=== PATIENT | female | born 1985 | race Caucasian/White ===

== ENCOUNTER 2021-06-17 10:22 | Inpatient (IN) ==
[2021-06-17] MEDS ORDERED: ALBUTEROL SULFATE 200 PUFF INHALER INH ONE (10:32)
[2021-06-17] MEDS ORDERED: LACTATED RINGERS 1,000 ML IV ONE (10:32)
--- NOTE | 2021-06-17 10:47 | Emergency Department Note ---
SOB HPI General Chief Complaint: Shortness of Breath/Dyspnea Stated Complaint: covid +, cough, chills, headache, SOB Time Seen by Provider: 06/17/21 10:26 Source: patient, RN notes reviewed and old records reviewed Mode of arrival: ambulatory Limitations: no limitations History of Present Illness HPI Narrative: Narrative: MD Complaint: shortness of breath Onset (ago): day(s) (4) Context: recent illness Severity: severe Consistency/Duration: constant Improves with: nothing Worsens with: exertion, movement and coughing Known history of: other (Covid pneumonia 06/13) Associated symptoms: Reports fever, cough, wheezing, sputum production and palpitations; Denies chest pain, pain with inspiration, orthopnea, lower extremity pain, polyuria, polydipsia, parasthesias, carpopedal spasm, hemoptysis, diaphoresis, nausea/vomiting, syncope, abdominal pain, rash and sense of impending doom Treatment prior to arrival: other (Treated with steroids prior to arrival) Related Data Home oxygen amount: none Previous Rx's Medication Instructions Recorded venlafaxine 75 mg tablet 75 mg PO BID #60 tab 03/08/18 codeine-guaifenesin 5 ml PO Q8HP PRN #237 ml 06/13/21 Allergies Allergy/AdvReac Type Severity Reaction Status Date / Time No Known Drug Allergies Allergy Verified 06/17/21 10:24 Review of Systems ROS ROS Narrative: Narrative: All systems ED: reviewed and negative except as stated. [facility] Narrative Patient History Narrative: Narrative: Medical/Surgical/Family History All Active Problems (Updated 06/17/21 @ 12:24 by Tim Bianchi MD) Pneumonia due to COVID-19 virus (Acute) Pneumonia due to 2019 novel coronavirus (Acute) Choledocholithiasis (Acute) UTI (urinary tract infection) (Acute) Flank pain (Acute) Cholecystitis, acute with cholelithiasis (Acute) Cholecystitis (Acute) History of wisdom tooth extraction (Chronic) History of hernia surgery (Chronic) Upper respiratory infection (Acute) Depression (Chronic) Medical History (Updated 06/17/21 @ 12:24 by Tim Bianchi MD) Depression Upper respiratory infection Surgical History History of hernia surgery Childhood - [facility]Do December History of laparoscopic cholecystectomy 06/21/2018 History of wisdom tooth extraction Social History Smoking Status: Never smoker Alcohol Intake Frequency: does not drink Substance Use: does not use Exam Narrative Narrative: Narrative: General Limitations: no limitations General appearance: Present alert, in distress and obese Head Head: Present atraumatic, normocephalic and normal inspection Eye Eye: Present normal appearance, PERRL and EOMI ENT ENT: Present normal exam, normal oropharynx and mucous membranes moist Neck Neck: Present normal inspection, full ROM and trachea midline; Absent tenderness, meningismus and lymphadenopathy Chest Chest: Present normal inspection; Absent tenderness Respiratory Respiratory: Present respiratory distress, wheezes and decreased breath sounds; Absent rales/crackles, stridor, accessory muscle use and prolonged expiratory phase Cardiovascular Cardiovascular: Present normal rhythm and tachycardia; Absent systolic murmur Adbominal Abdominal: Present soft; Absent distention, tenderness, guarding and rebound Extremities Extremities: Present normal inspection, full ROM and normal capillary refill; Absent tenderness, pedal edema and pretibial edema Back Back: Present normal inspection and full ROM; Absent tenderness, CVA tenderness (R) and CVA tenderness (L) Neurological Neurological: Present alert and oriented X3; Absent motor sensory deficit Psychiatric Psychiatric: Present normal affect and normal mood Skin Skin: Present warm (WNL); Absent rash Course Reevaluation(s) Reevaluation #1: Patient arrives severely hypoxic with a pulse ox of 63% on room air. Patient gets into the 80s when placed on 100% nonrebreather mask. Patient was placed into a prone position and is tolerated well. Although patient is hypoxic she is mentating well and is alert and oriented and following commands. Time: 10:46 Vital Signs Vital signs: Vital Signs Temperature 98.8 F 06/17/21 10:22 Pulse Rate 105 H 06/17/21 10:22 Respiratory Rate 30 H 06/17/21 10:22 Blood Pressure 142/77 06/17/21 10:22 Pulse Oximetry (%) 63 L 06/17/21 10:22 Temperature 98.8 F 06/17/21 10:22 Pulse Rate 90 06/17/21 12:05 Respiratory Rate 33 H 06/17/21 12:05 Blood Pressure 132/82 06/17/21 12:05 Pulse Oximetry (%) 88 L 06/17/21 12:05 [facility] Narrative Medical decision making narrative: Narrative: 36-year-old female with known Covid pneumonia comes in with hypoxia 63% on room air. Patient is in the 80s on a nonrebreather mask while laying prone. She is tolerating this well and is alert and oriented and able to converse with me. Patient has a elevated platelet count at 590 elevated glucose count at 248 elevated LFTs. Chest x-ray shows worsening pneumonia. Patient will be admitted diagnosis is Covid pneumonia secondary diagnosis hypoxia third diagnosis is thrombocytosis forced is hyperglycemia Medical Records Medical records reviewed: Yes I reviewed the patient's medical records. Lab Data Lab results reviewed: Yes I reviewed the patient's lab results. Result diagrams: 06/17/21 10:40 06/17/21 10:40 Labs: Lab Results 06/17/21 06/17/21 06/17/21 Range/Units 10:40 10:40 10:40 WBC 7.7 (4.5-11.0) K/mcL RBC 4.74 (3.59-5.38) M/mcL Hgb 13.2 (11.2-15.7) g/dL Hct 41.0 (34.1-44.9) % MCV 86.5 (80.0-100.0) fL MCH 27.8 (26.0-34.0) pg MCHC 32.2 (31.0-36.0) g/dL RDW 12.7 (11.5-14.5) % Plt Count 590 H (140-440) K/mcL MPV 9.4 (7.4-10.4) fL Neut % (Auto) 79.7 H (38.0-78.0) % Lymph % (Auto) 16.2 (15.5-49.0) % Ada % (Auto) 3.9 (1.0-12.0) % Eos % (Auto) 0.1 (0.0-7.0) % Baso % (Auto) 0.1 (0.0-2.0) % Lymph # (Auto) 1.25 L (1.50-4.80) K/mcL Ada # (Auto) 0.30 (0.10-0.90) K/mcL Eos # (Auto) 0.01 (0.00-0.70) K/mcL Baso # (Auto) 0.01 (0.00-0.30) K/mcL Absolute Neutrophils 6.15 (1.80-8.00) K/mcL VBG Lactic Acid 2.6 H (0.5-2.0) mmol/L Sodium 133 (133-145) mmol/L Potassium 3.8 (3.3-5.1) mmol/L Chloride 93 L (96-108) mmol/L Carbon Dioxide 21 L (22-30) mmol/L Anion Gap 19.0 H (8.0-16.0) BUN 10 (6-20) mg/dL Creatinine 0.6 (0.6-1.1) mg/dL GFR Calculation 119 Glucose 248 H (70-105) mg/dL Calcium 9.3 (8.6-10.4) mg/dL Total Bilirubin 0.4 (0.1-1.0) mg/dL AST 28 (<32) U/L ALT 20 (<40) U/L Alkaline Phosphatase 87 (39-117) U/L Total Protein 8.2 (5.9-8.4) gm/dL Albumin 3.1 L (3.2-5.2) gm/dL Globulin 5.1 H (2.2-3.7) gm/dL Albumin/Globulin Ratio 0.6 L (1.0-2.3) ED POC Tests ED POC Tests: HCG POC Results Negative Radiology Data Radiology results reviewed: Yes I reviewed the patient's radiology results. Radiology results narrative: CXR IMPRESSION: Worsening bilateral pneumonia Interpreted and Authenticated by: FERNANDEZ Mccarthy Data EKG #1: EKG attestation: Yes I reviewed and interpreted this EKG. EKG shows normal: sinus rhythm Rate: normal (90) [place]/QRS: normal Voltage: c/w LVH Heart block present: None ST segment elevation in: None ST segment depression in: None Q waves: III and aVF T wave inversions noted in: None Hyperacute T waves: None QTc: normal QRS morphology: Present normal When compared to previous EKG there are: no significant changes Pulse Oximetry Data Pulse Ox %: 63 Interpretation: 63% on room air hypoxic Discharge Plan Patient/Caregiver Discharge Instructions Pt seen by HIV COUNSELOR/PA only: No Clinical Impression: Pneumonia due to 2019 novel coronavirus Patient Disposition: Xfer As Inpt ([facility]) Condition: Fair Follow up with: Wild Macedo MD [Primary Care Provider] - Prescriptions: No Action venlafaxine 75 mg tablet 75 mg PO BID Qty: 60 RF: 2 codeine-guaifenesin 10-100 mg/5 mL liquid 5 ml PO Q8HP PRN (Reason: cough) Qty: 237 RF: 0
--- NOTE | 2021-06-17 11:15 | XRay Report ---
HISTORY: : Pneumonia with cough, chills and shortness of breath FINDINGS: Moderate diffuse alveolar infiltrates are present throughout both lungs. These have become worse since 06/13/21. Lung volumes are relatively small due to suboptimal inspiration. No pneumothorax or pleural effusion are present. The heart is borderline enlarged but magnified by portable technique and suboptimal inspiration. IMPRESSION: Worsening bilateral pneumonia Interpreted and Authenticated by: Jordi Mccarthy 06/17/21
[2021-06-17 11:38] LABS: Basophils # (Auto) 0.01 K/mcL (0.00-0.30); Basophils % (Auto) 0.1 % (0.0-2.0); Eosinophils # (Auto) 0.01 K/mcL (0.00-0.70); Eosinophils % (Auto) 0.1 % (0.0-7.0); Hemoglobin 13.2 g/dL (11.2-15.7); Lymphocytes # (Auto) 1.25 K/mcL (1.50-4.80); Lymphocytes % (Auto) 16.2 % (15.5-49.0); Mean Cell Volume 86.5 fL (80.0-100.0); Mean Corpuscular HGB Conc 32.2 g/dL (31.0-36.0); Mean Platelet Volume 9.4 fL (7.4-10.4); Monocytes % (Auto) 3.9 % (1.0-12.0); Neutrophils % (Auto) 79.7 % (38.0-78.0); Platelet Count 590 K/mcL (140-440); RBC 4.74 M/mcL (3.59-5.38); Red Cell Distribution Width 12.7 % (11.5-14.5); WBC 7.7 K/mcL (4.5-11.0)
[2021-06-17 12:07] LABS: ALT/SGPT 20 U/L (<40); AST/SGOT 28 U/L (<32); Albumin 3.1 gm/dL (3.2-5.2); Albumin/Globulin Ratio 0.6 (1.0-2.3); Alkaline Phosphatase 87 U/L (39-117); Bilirubin,Total 0.4 mg/dL (0.1-1.0); Blood Urea Nitrogen 10 mg/dL (6-20); Calcium 9.3 mg/dL (8.6-10.4); Carbon Dioxide 21 mmol/L (22-30); Chloride 93 mmol/L (96-108); Globulin 5.1 gm/dL (2.2-3.7); Glomerular Filtration Rate 119; Glucose 248 mg/dL (70-105)
[2021-06-17] MEDS ORDERED: KETOROLAC 30 MG/ML VIAL IV ONE (12:56)
--- NOTE | 2021-06-17 13:49 | Internal Med History&Physical ---
HPI History of Present Illness Patient information: Note initiated : 06/17/21 at 1:48 pm Service Date, if different from initiated Date: [] Patient: Niya Piper a 36 y/o F admitted on for covid +, cough, chills, headache, SOB. Chief Complaint: [] History of present illness: Ms. Piper is a 36 year old female with a history of depression and obesity who says she was diagnosed with COVID-19 at an outside facility on about 06/09/21. She presented to the [facility] ED last week with a cough and fever and was discharged to home. She returned to the ED on the day of admission with shortness of breath and hypoxia. Chest xray showed progression of bilateral pneumonia. Lab work was remarkable for a neutrophil count of 590, lactic acid 2.6, anion gap metabolic acidosis. The patient required 15 L/min oxgyen via a non-rebreather mask, respiratory rate is 30-40. When I saw the patient she was proning and was able to speak comfortably in full sentences. She says she feel comfortable on oxygen supplementation while at rest. Review of systems Constitutional: positive for fever Eyes: no vision changes or pain Cardiovascular: no chest pain, no palpitations Respiratory: positive for cough, dyspnea, and pleuritic chest pain Gastrointestinal: no abdominal pain, no nausea, vomiting, or diarrhea Genitourinary: no dysuria or difficulty voiding Musculoskeletal: no arthralgia or myalgia Integumentary: no skin lesion or wound Neurological: no focal weakness or numbness Psychiatric: no anxiety or depression Physical exam Head: Atraumatic, normal inspection. Eyes: normal appearance, no scleral icterus. Neck: full ROM Respiratory: tachypnea on non-rebreather mask, does not appear to be in respiratory distress Cardiovascular: normal rate and rhythm, S1, S2. GI/Abdominal: soft, nontender, no guarding. Extremities: full range of motion, nontender. Neurological: CN II-XII intact, intact motor, intact sensation. Psychiatric: normal mood. Skin: warm, normal color PFSH PFSH All Active Problems (Updated 06/17/21 @ 12:24 by Tim Bianchi MD) Pneumonia due to COVID-19 virus (Acute) Pneumonia due to 2019 novel coronavirus (Acute) Choledocholithiasis (Acute) UTI (urinary tract infection) (Acute) Flank pain (Acute) Cholecystitis, acute with cholelithiasis (Acute) Cholecystitis (Acute) History of wisdom tooth extraction (Chronic) History of hernia surgery (Chronic) Upper respiratory infection (Acute) Depression (Chronic) Medical History (Updated 06/17/21 @ 12:24 by Tim Bianchi MD) Depression Upper respiratory infection Surgical History History of hernia surgery Childhood - . December History of laparoscopic cholecystectomy 06/21/2018 History of wisdom tooth extraction Social History (Updated 05/17/19 @ 16:17 by Dulce Wilcox PA-C) marital status: education level: high school occupational status: employed occupation: [employer] occupational exposures/hazards: Yes sexually active: Yes other: Children 2, para 0 alcohol intake frequency: does not drink substance use type: does not use MEDS/ALLERGIES Home Medications and Allergies Home Medications Medication Instructions Recorded Confirmed Type venlafaxine 75 mg tablet 75 mg PO BID #60 tab 03/08/18 05/17/19 Rx codeine-guaifenesin 5 ml PO Q8HP PRN #237 ml 06/13/21 Rx Allergies Allergy/AdvReac Type Severity Reaction Status Date / Time No Known Drug Allergies Allergy Verified 06/17/21 10:24 EXAM Constitutional Vitals: Temp Pulse Resp BP Pulse Ox 98.8 F 98 H 41 H 131/84 95 06/17/21 10:22 06/17/21 13:44 06/17/21 13:44 06/17/21 13:31 06/17/21 13:44 DATA Data Completed and Pending Labs: Labs from last 24 hours 06/17/21 06/17/21 06/17/21 10:40 10:40 10:40 WBC 7.7 RBC 4.74 Hgb 13.2 Hct 41.0 MCV 86.5 MCH 27.8 MCHC 32.2 RDW 12.7 Plt Count 590 H MPV 9.4 Neut % (Auto) 79.7 H Lymph % (Auto) 16.2 [place] % (Auto) 3.9 Eos % (Auto) 0.1 Baso % (Auto) 0.1 Lymph # (Auto) 1.25 L [place] # (Auto) 0.30 Eos # (Auto) 0.01 Baso # (Auto) 0.01 Absolute Neutrophils 6.15 VBG Lactic Acid 2.6 H Sodium 133 Potassium 3.8 Chloride 93 L Carbon Dioxide 21 L Anion Gap 19.0 H BUN 10 Creatinine 0.6 GFR Calculation 119 Glucose 248 H Calcium 9.3 Total Bilirubin 0.4 AST 28 ALT 20 Alkaline Phosphatase 87 Total Protein 8.2 Albumin 3.1 L Globulin 5.1 H Albumin/Globulin Ratio 0.6 L A/P Narrative A/P Narrative: Assessment: 36 year old female with a history of depression and obesity admitted for acute hypoxic respiratory failure secondary to COVID-19 pneumonia. #Acute hypoxic respiratory failure #Severe COVID-19 pneumonia #Anion gap metabolic acidosis #Lactic acidosis #Hyperglycemia #BMI 39 Plan -Dexamethasone and Remdesivir per COVID-19 guidelines. -Oxygen supplementation. -Check CRP, LDH, d-dimer, and follow along with daily labs. -Check hemoglobin A1C. -Recheck lactic acid, IV fluid if still elevated. -Encourage self proning. -Monitor respiratory status closely. -Regular diet. 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 -DVT ppx: Lovenox SQ-increase frequency if d-dimer trends up. -Code status: Enterprise Resource Analyst Spent With Patient Time: Total time spent is greater than 50% in coordination of care (as documented) at patient's floor/unit and/or counseling patient:
[2021-06-17] MEDS ORDERED: REMDESIVIR 200 MG in 0.9 % SODIUM CHLORIDE 250 ML IV ONE ×2 (14:50→16:00)
[2021-06-17] MEDS ORDERED: SENNOSIDES 1 TABLET PO PRN (14:50)
[2021-06-17] MEDS ORDERED: LACTULOSE 20 GM/30 ML ORAL.SOL PO PRN (14:50)
[2021-06-17] MEDS ORDERED: ONDANSETRON 4 MG/2 ML VIAL IV PRN (14:50)
[2021-06-17] MEDS: 0.9 % SODIUM CHLORIDE 10 ML SYRINGE IV SCH ×2 (15:44→22:34)
[2021-06-17] MEDS: DEXAMETHASONE 10 MG/ML VIAL IV SCH (15:51)
[2021-06-17 16:31] LABS: ALT/SGPT 16 U/L (<40); AST/SGOT 19 U/L (<32); Albumin 3.3 gm/dL (3.2-5.2); Albumin/Globulin Ratio 0.8 (1.0-2.3); Alkaline Phosphatase 78 U/L (39-117); Bilirubin,Direct < 0.2 mg/dL (0-0.3); Bilirubin,Total 0.3 mg/dL (0.1-1.0); Blood Urea Nitrogen 9 mg/dL (6-20); Calcium 8.9 mg/dL (8.6-10.4); Carbon Dioxide 24 mmol/L (22-30); Chloride 98 mmol/L (96-108); Globulin 4.3 gm/dL (2.2-3.7); Glomerular Filtration Rate 119; Glucose 177 mg/dL (70-105); Lactate Dehydrogenase 407 U/L (135-225); Phosphorous 2.1 mg/dL (2.5-4.5); Triglycerides 227 mg/dL (<150); Uric Acid 3.8 mg/dL (2.5-8.0)
[2021-06-17] MEDS ORDERED: guaiFENesin/CODEINE 10 ML UDC PO PRN (17:00)
[2021-06-17] MEDS: INSULIN LISPRO 1 UNIT/0.01 ML UNIT SQ SCH ×2 (17:12→22:10)
[2021-06-17] MEDS ORDERED: POTASSIUM CHLORIDE 20 MEQ TABLET PO ONE (18:07)
[2021-06-17] MEDS ORDERED: HYDROcodone/APAP 5/325MG TABLET PO PRN (18:29)
[2021-06-17] MEDS ORDERED: ACETAMINOPHEN 325 MG TABLET PO PRN (18:29)
[2021-06-17] MEDS ORDERED: ACETAMINOPHEN 325 MG TABLET PO ONE (18:54)
[2021-06-17] MEDS: ACETAMINOPHEN 325 MG TABLET PO PRN (19:30)
[2021-06-17] MEDS ORDERED: INSULIN GLARGINE, HUMAN 1 UNIT/0.01 ML SQ SCH (21:00)
[2021-06-17] MEDS: NEUTRA PHOS 1 PACKET PO SCH (22:00)
[2021-06-17] MEDS: ENOXAPARIN 40 MG/0.4 ML SYRINGE SQ SCH (22:10)
[2021-06-18] MEDS: 0.9 % SODIUM CHLORIDE 10 ML SYRINGE IV SCH ×3 (05:40→20:52)
[2021-06-18] MEDS: INSULIN LISPRO 1 UNIT/0.01 ML UNIT SQ SCH ×4 (07:20→20:52)
[2021-06-18 07:41] LABS: Hematocrit 37.2 % (34.1-44.9); Hemoglobin 11.9 g/dL (11.2-15.7); Mean Cell Volume 86.3 fL (80.0-100.0); Mean Platelet Volume 9.2 fL (7.4-10.4); Platelet Count 596 K/mcL (140-440); RBC 4.31 M/mcL (3.59-5.38); Red Cell Distribution Width 12.8 % (11.5-14.5); WBC 6.2 K/mcL (4.5-11.0)
[2021-06-18 08:28] LABS: C-Reactive Protein 6.9 mg/dL (0.03-0.80)
[2021-06-18 08:29] LABS: ALT/SGPT 14 U/L (<40); AST/SGOT 18 U/L (<32); Albumin 3.3 gm/dL (3.2-5.2); Albumin/Globulin Ratio 0.8 (1.0-2.3); Alkaline Phosphatase 74 U/L (39-117); Bilirubin,Direct < 0.2 mg/dL (0-0.3); Bilirubin,Total 0.3 mg/dL (0.1-1.0); Blood Urea Nitrogen 9 mg/dL (6-20); Calcium 8.9 mg/dL (8.6-10.4); Carbon Dioxide 22 mmol/L (22-30); Chloride 102 mmol/L (96-108); Glomerular Filtration Rate 126; Glucose 146 mg/dL (70-105); Lactate Dehydrogenase 450 U/L (135-225); Phosphorous 2.5 mg/dL (2.5-4.5); Triglycerides 245 mg/dL (<150); Uric Acid 4.5 mg/dL (2.5-8.0)
[2021-06-18] MEDS ORDERED: ENOXAPARIN 40 MG/0.4 ML SYRINGE SQ SCH (09:00)
[2021-06-18 09:04] LABS: Hemoglobin A1C 8.7 % Hgb (4.0-6.0)
[2021-06-18] MEDS: ENOXAPARIN 40 MG/0.4 ML SYRINGE SQ SCH ×2 (09:09→20:52)
[2021-06-18] MEDS: NEUTRA PHOS 1 PACKET PO SCH (09:09)
[2021-06-18] MEDS: DEXAMETHASONE 10 MG/ML VIAL IV SCH (09:09)
[2021-06-18] MEDS: buPROPion 150 MG TAB.XL.24H PO SCH (09:09)
[2021-06-18] MEDS: hydrOXYzine 25 MG TABLET PO PRN ×2 (09:09→21:00)
--- NOTE | 2021-06-18 11:07 | XRay Report ---
HISTORY: Follow-up COVID pneumonia FINDINGS: Moderate diffuse alveolar infiltrates are present throughout both lungs. Greatest consolidation is above the right diaphragm. Lung volumes are relatively small. There is no pneumothorax or pleural effusion. The heart is upper limits of normal in size. Comparison with the prior exam from 06/17/21 shows no change. IMPRESSION: Stable moderate bilateral pneumonia Interpreted and Authenticated by: Jordi Mccarthy 06/18/21
[2021-06-18] MEDS ORDERED: REMDESIVIR 100 MG in 0.9 % SODIUM CHLORIDE 250 ML IV SCH ×2 (13:30→14:00)
[2021-06-18] MEDS ORDERED: LOPERAMIDE 2 MG CAPSULE PO PRN (14:40)
[2021-06-18] MEDS ORDERED: LOPERAMIDE 2 MG CAPSULE PO ONE (14:41)
[2021-06-18 15:46] LABS: Lymphocytes % 25 % (15-49); Monocytes % (Manual) 8 % (1-12); Platelet Estimate INCREASED (Normal); RBC Morphology NORMAL (Normal); Reactive Lymphocytes 1 % (0-2); Segmented Neutrophils % 66 % (38-78)
--- NOTE | 2021-06-18 15:51 | Internal Med Progress Note ---
SUBJECTIVE Subjective Patient information: Note initiated : 06/18/21 at 3:44 pm Service Date, if different from initiated Date: [] Patient: Niya Piper 36 y/o F admitted on 06/17/21 for covid +, cough, chills, headache, SOB. Chief Complaint: [] Interval history: Ms. Piper is a 36 year old female with a history of depression and obesity who says she was diagnosed with COVID-19 at an outside facility on about 06/09/21. She presented to the [facility] ED last week with a cough and fever and was discharged to home. She returned to the ED on the day of admission with shortness of breath and hypoxia. Chest xray showed progression of bilateral pneumonia. Lab work was remarkable for a neutrophil count of 590, lactic acid 2.6, anion gap metabolic acidosis. The patient required 15 L/min oxygen via a non-rebreather mask, respiratory rate is 30-40. When I saw the patient she was proning and was able to speak comfortably in full sentences. She says she feel comfortable on oxygen supplementation while at rest. 06/18: Continues on HHFNC on high FiO2. The patient does not feel dyspnea at rest, desaturates with minimal activity. CRP decreased 10 to 6.9. Chest xray shows stable bilateral pneumonia. Added Atarax prn for anxiety. Encouraged self proning and discussed COVID-19 management. Review of systems: dyspnea with activity, mild pleuritic chest discomfort Physical exam Head: Atraumatic, normal inspection. Eyes: normal appearance, no scleral icterus. Neck: full ROM Respiratory: tachypnea on non-rebreather mask, does not appear to be in re spiratory distress Cardiovascular: normal rate and rhythm, S1, S2. GI/Abdominal: soft, nontender, no guarding. Extremities: full range of motion, nontender. Neurological: CN II-XII intact, intact motor, intact sensation. Psychiatric: normal mood. Skin: warm, normal color Constitutional Vitals: Vital Signs Temp Pulse Resp BP Pulse Ox 97.0 F 99 H 26 H 114/71 97 06/18/21 03:36 06/18/21 01:15 06/18/21 14:00 06/18/21 14:00 06/18/21 14:00 Period Temp Pulse Resp BP Sys/Ordonez Pulse Ox Last 24 Hr 97.0 F-98.3 F 96-99 17-39 91-142/62-108 85-99 Intake and Output 06/18/21 06/18/21 06/18/21 05:59 13:59 21:59 Intake Total 1280 100 250 Output Total 1275 350 Balance 5 -250 250 Weight 99.11 kg Patient Weight 06/19/21 05:59 Weight 99.11 kg Intake & Output: Intake & Output 06/18/21 06/18/21 06/18/21 05:59 13:59 21:59 Intake Total 1280 100 250 Output Total 1275 350 Balance 5 -250 250 Weight 99.11 kg Intake: IV 250 Veklury 100 mg In Sodium 250 Chloride 0.9% 250 ml @ 500 mls/ hr IV Q24H [facility] Rx#:[id number] Oral 1280 100 Output: Void Amount 150 Urine/Stool Mix 1275 Stool 200 Other: Urine Appearance Clear Uretheral (Bernardo) Clear Urine Color Bright Yellow Uretheral (Bernardo) Bright Yellow Urine Odor Normal Uretheral (Bernardo) Normal OBJ DATA Labs CBC & Chem 7: 06/18/21 05:15 06/18/21 05:16 Labs: Abnormal Lab Results 06/18/21 06/18/21 06/18/21 05:16 05:15 05:15 Plt Count Neut % (Auto) Lymph # (Auto) D-Dimer 0.96 H VBG Lactic Acid Potassium Chloride Carbon Dioxide Anion Gap Creatinine 0.5 L Glucose 146 H Hemoglobin A1c 8.7 H Phosphorus GGT 185 H Lactate Dehydrogenase 450 H C-Reactive Protein 6.90 H Albumin Globulin 4.0 H Albumin/Globulin Ratio 0.8 L Triglycerides 245 H 06/18/21 06/17/21 06/17/21 05:15 15:26 15:26 Plt Count 596 H Neut % (Auto) Lymph # (Auto) D-Dimer 0.96 H VBG Lactic Acid Potassium 3.1 L Chloride Carbon Dioxide Anion Gap Creatinine Glucose 177 H Hemoglobin A1c Phosphorus 2.1 L GGT 200 H Lactate Dehydrogenase 407 H C-Reactive Protein 10.00 H Albumin Globulin 4.3 H Albumin/Globulin Ratio 0.8 L Triglycerides 227 H 06/17/21 06/17/21 06/17/21 10:40 10:40 10:40 Plt Count 590 H Neut % (Auto) 79.7 H Lymph # (Auto) 1.25 L D-Dimer VBG Lactic Acid 2.6 H Potassium Chloride 93 L Carbon Dioxide 21 L Anion Gap 19.0 H Creatinine Glucose 248 H Hemoglobin A1c Phosphorus GGT Lactate Dehydrogenase C-Reactive Protein Albumin 3.1 L Globulin 5.1 H Albumin/Globulin Ratio 0.6 L Triglycerides Meds: Medications Acetaminophen (Acetaminophen 325 Mg Tablet) 650 mg PO Q4HP PRN; Protocol PRN Reason: Pain/Fever > 100.4 Last Admin: 06/17/21 19:30 Dose: 650 mg Documented by: Hydrocodone Bitart/Acetaminophen (Hydrocodone/Apap 5/325mg Tablet) 1 tab PO Q6HP PRN; Protocol PRN Reason: Per Pain Protocol Bupropion HCl (Bupropion 150 Mg Tab.Xl.24h) 150 mg PO DAILY [facility] Last Admin: 06/18/21 09:09 Dose: 150 mg Documented by: Dexamethasone (Dexamethasone 10 Mg/Ml Vial) 6 mg IV DAILY [facility] Stop: 06/27/21 14:49 Last Admin: 06/18/21 09:09 Dose: 6 mg Documented by: Diagnostic Test (Pha) (Accu-Chek 1 Each Strip) 1 each FS ACHS [facility] Last Admin: 06/18/21 11:36 Dose: 1 each Documented by: Enoxaparin Sodium (Enoxaparin 40 Mg/0.4 Ml Syringe) 40 mg SQ BID [facility] Last Admin: 06/18/21 09:09 Dose: 40 mg Documented by: Guaifenesin/Codeine Phosphate (Guaifenesin/Codeine 10 Ml Udc) 5 ml PO Q8HP PRN PRN Reason: Cough Last Admin: 06/17/21 19:58 Dose: 5 ml Documented by: Hydroxyzine HCl (Hydroxyzine 25 Mg Tablet) 25 mg PO Q6HP PRN PRN Reason: Anxiety Last Admin: 06/18/21 09:09 Dose: 25 mg Documented by: REMDESIVIR 100 mg/ Sodium (Chloride) 250 mls @ 500 mls/hr IV Q24H [facility] Stop: 06/21/21 14:29 Last Infusion: 06/18/21 15:30 Dose: Infused Documented by: Insulin Glargine (Insulin Glargine, Human 1 Unit/0.01 Ml) 10 unit SQ [facility] Insulin Human Lispro (Insulin Lispro 1 Unit/0.01 Ml Unit) 0 unit SQ ACHS VINCE; Protocol Lactulose (Lactulose 20 Gm/30 Ml Oral.Ruth) 10 gm PO DAILYP PRN PRN Reason: Constipation Loperamide HCl (Loperamide 2 Mg Capsule) 2 mg PO PRN PRN PRN Reason: Diarrhea Ondansetron HCl (Ondansetron 4 Mg/2 Ml Vial) 4 mg IV Q4HP PRN; Protocol PRN Reason: Nausea And Vomiting Senna (Sennosides 1 Tablet) 2 tab PO HSP PRN PRN Reason: Constipation Sodium Chloride (0.9 % Sodium Chloride 10 Ml Syringe) 10 ml IV Q8 VINCE Last Admin: 06/18/21 14:06 Dose: 10 ml Documented by: A/P Narrative A/P Narrative: Assessment: 36 year old female with a history of type 2 diabetes mellitus, depression, obesity admitted for acute hypoxic respiratory failure secondary to COVID-19 pneumonia. #Acute hypoxic respiratory failure #Severe COVID-19 pneumonia #Type 2 diabetes mellitus #Thrombocytosis #Resolved anion gap metabolic acidosis #Resolved lactic acidosis #Hisotory of depression #BMI 39 Plan -Dexamethasone and Remdesivir per COVID-19 guidelines. -Oxygen supplementation. -Follow CPR and LDH. -Daily CBC and inpatient panel until more stable. -Lantus and SSI-med. -Continue home Wellbutrin. -Regular diet. 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 -DVT ppx: Lovenox SQ BID -Code status: Crystal Grinder Spent With Patient Time: Total time spent is greater than 50% in coordination of care (as docume nted) at patient's floor/unit and/or counseling patient: QUALITY VTE Deep Vein Thrombosis/Pulmonary Embolism Present on Admission: No
[2021-06-18] MEDS ORDERED: INSULIN GLARGINE, HUMAN 1 UNIT/0.01 ML SQ SCH (21:00)
[2021-06-19] MEDS: hydrOXYzine 25 MG TABLET PO PRN ×2 (02:53→22:04)
[2021-06-19 06:38] LABS: Hemoglobin 11.6 g/dL (11.2-15.7); Mean Cell Volume 88.1 fL (80.0-100.0); Mean Corpuscular HGB Conc 31.4 g/dL (31.0-36.0); Mean Platelet Volume 9.2 fL (7.4-10.4); Platelet Count 591 K/mcL (140-440); Red Cell Distribution Width 12.8 % (11.5-14.5); WBC 11.1 K/mcL (4.5-11.0)
[2021-06-19] MEDS: 0.9 % SODIUM CHLORIDE 10 ML SYRINGE IV SCH ×4 (06:52→23:46)
[2021-06-19] MEDS: INSULIN LISPRO 1 UNIT/0.01 ML UNIT SQ SCH ×4 (07:49→21:03)
[2021-06-19 07:52] LABS: Band Neutrophils % 2 % (0-10); Lymphocytes % 24 % (15-49); Monocytes % (Manual) 4 % (1-12); Myelocytes % 1 %; Platelet Estimate INCREASED (Normal); RBC Morphology NORMAL (Normal); Segmented Neutrophils % 69 % (38-78)
[2021-06-19] MEDS ORDERED: PIPERACILLIN SODIUM/TAZOBACTAM 4.5 GM in DEXTROSE 5% IN WATER 50 ML IV SCH (08:00)
[2021-06-19] MEDS: ENOXAPARIN 40 MG/0.4 ML SYRINGE SQ SCH ×2 (08:32→20:39)
[2021-06-19] MEDS: buPROPion 150 MG TAB.XL.24H PO SCH (08:33)
[2021-06-19] MEDS: ACETAMINOPHEN 325 MG TABLET PO PRN ×2 (08:33→20:41)
[2021-06-19] MEDS: DEXAMETHASONE 10 MG/ML VIAL IV SCH (08:33)
[2021-06-19 08:50] LABS: ALT/SGPT 18 U/L (<40); AST/SGOT 40 U/L (<32); Albumin 3.1 gm/dL (3.2-5.2); Albumin/Globulin Ratio 0.8 (1.0-2.3); Alkaline Phosphatase 71 U/L (39-117); Bilirubin,Direct < 0.2 mg/dL (0-0.3); Bilirubin,Total 0.4 mg/dL (0.1-1.0); Blood Urea Nitrogen 11 mg/dL (6-20); Calcium 9.1 mg/dL (8.6-10.4); Carbon Dioxide 22 mmol/L (22-30); Chloride 100 mmol/L (96-108); Glomerular Filtration Rate 113; Glucose 107 mg/dL (70-105); Lactate Dehydrogenase 469 U/L (135-225); Phosphorous 2.9 mg/dL (2.5-4.5); Triglycerides 172 mg/dL (<150); Uric Acid 5.3 mg/dL (2.5-8.0)
--- NOTE | 2021-06-19 08:56 | XRay Report ---
HISTORY: COVID pneumonia with new leukocytosis FINDINGS: A moderate diffuse alveolar infiltrates throughout both lungs. These have remained stable compared with the prior two exams. Lung volumes remain relatively small. There is no pleural effusion or pneumothorax. The heart size is normal. Impression: Stable moderate bilateral pneumonia Interpreted and Authenticated by: Jordi Mccarthy 06/19/21
[2021-06-19] MEDS ORDERED: FLUTICASONE PROPIONATE SPRAY.NAS NS PRN ×2 (10:14→11:41)
[2021-06-19] MEDS ORDERED: 0.9 % SODIUM CHLORIDE 1,000 ML IV ONE (10:15)
--- NOTE | 2021-06-19 11:40 | Internal Med Progress Note ---
SUBJECTIVE Subjective Patient information: Note initiated : 06/19/21 at 11:36 am Service Date, if different from initiated Date: [] Patient: Niya Piper a 36 y/o F admitted on 06/17/21 for covid +, cough, chills, headache, SOB. Chief Complaint: [] Interval history: Ms. Piper is a 36 year old female with a history of depression and obesity who says she was diagnosed with COVID-19 at an outside facility on about 06/09/21. She presented to the [facility] ED last week with a cough and fever and was discharged to home. She returned to the ED on the day of admission with shortness of breath and hypoxia. Chest xray showed progression of bilateral pneumonia. Lab work was remarkable for a neutrophil count of 590, lactic acid 2.6, anion gap metabolic acidosis. The patient required 15 L/min oxygen via a non-rebreather mask, respiratory rate is 30-40. When I saw the patient she was proning and was able to speak comfortably in full sentences. She says she feel comfortable on oxygen supplementation while at rest. 06/18: Continues on HHFNC with high FiO2. The patient does not feel dyspnea at rest, desaturates with minimal activity. CRP decreased 10 to 6.9. Chest xray shows stable bilateral pneumonia. Added Atarax prn for anxiety. Encouraged self proning and discussed COVID-19 management. 06/19: Continues on HHFNC high FiO2, 80% but weaned to 70% this morning, hypoxia improves with proning position. Had a fever overnight and new leukocytosis to day, added Zosyn and ordered MRSA nasal PCR. Procalcitonin checked but not elevated to suggest bacterial pneumonia. Upgraded to ICU status and discussed with Anaesthesia. D-dimer still elevated, CTA chest ordered. Blood glucose elevated. Review of systems: dyspnea with activity, pleuritic chest discomfort Physical exam Head: Atraumatic, normal inspection. Eyes: normal appearance, no scleral icterus. Neck: full ROM Respiratory: tachypnea, on HHFNC, does not appear to be in respiratory distress at rest Cardiovascular: normal rate and rhythm, S1, S2. GI/Abdominal: soft, nontender, no guarding. Extremities: full range of motion, nontender. Neurological: CN II-XII intact, intact motor, intact sensation. Psychiatric: normal mood. Skin: warm, normal color Constitutional Vitals: Vital Signs Temp Pulse Resp BP Pulse Ox 100.5 F H 99 H 29 H 108/45 97 06/19/21 07:52 06/19/21 09:35 06/19/21 09:35 06/19/21 08:03 06/19/21 09:35 Period Temp Pulse Resp BP Sys/Ordonez Pulse Ox Last 24 Hr 97.0 F-100.5 F 99-99 19-33 95-131/45-76 88-98 Intake and Output 06/18/21 06/19/21 06/19/21 21:59 05:59 13:59 Intake Total 650 400 Output Total 1200 150 150 Balance -550 -150 250 Weight 97.749 kg Intake & Output: Intake & Output 06/18/21 06/19/21 06/19/21 21:59 05:59 13:59 Intake Total 650 400 Output Total 1200 150 150 Balance -550 -150 250 Weight 97.749 kg Intake: IV 250 50 Zosyn 4.5 gm In Dextrose 5% in 50 Water 50 ml @ 100 mls/hr IV Q6H [facility] Rx#:[id number] Veklury 100 mg In Sodium 250 Chloride 0.9% 250 ml @ 500 mls/ hr IV Q24H [facility] Rx#:[id number] Oral 400 350 Output: Urine Catheter Amount 975 Void Amount 225 150 150 Other: Urine Appearance Clear Clear Urine Color Bright Yellow Bright Yellow Dark Dulce Urine Odor Normal # Voids 1 OBJ DATA Labs CBC & Chem 7: 06/19/21 05:13 06/19/21 05:14 Labs: Abnormal Lab Results 06/19/21 06/19/21 06/19/21 05:14 05:14 05:14 WBC Plt Count Neut % (Auto) Lymph # (Auto) Platelet Estimate D-Dimer VBG Lactic Acid Potassium Chloride Carbon Dioxide Anion Gap 18.0 H Creatinine Glucose 107 H Hemoglobin A1c Phosphorus GGT 182 H AST 40 H Lactate Dehydrogenase 469 H C-Reactive Protein 4.60 H Albumin 3.1 L Globulin 4.0 H Albumin/Globulin Ratio 0.8 L Triglycerides 172 H Procalcitonin 0.16 H 06/19/21 06/19/21 06/18/21 05:14 05:13 05:16 WBC 11.1 H Plt Count 591 H Neut % (Auto) Lymph # (Auto) Platelet Estimate Increased A D-Dimer 0.86 H VBG Lactic Acid Potassium Chloride Carbon Dioxide Anion Gap Creatinine 0.5 L Glucose 146 H Hemoglobin A1c Phosphorus GGT 185 H AST Lactate Dehydrogenase 450 H C-Reactive Protein Albumin Globulin 4.0 H Albumin/Globulin Ratio 0.8 L Triglycerides 245 H Procalcitonin 06/18/21 06/18/21 06/18/21 05:15 05:15 05:15 WBC Plt Count 596 H Neut % (Auto) Lymph # (Auto) Platelet Estimate Increased A D-Dimer 0.96 H VBG Lactic Acid Potassium Chloride Carbon Dioxide Anion Gap Creatinine Glucose Hemoglobin A1c 8.7 H Phosphorus GGT AST Lactate Dehydrogenase C-Reactive Protein 6.90 H Albumin Globulin Albumin/Globulin Ratio Triglycerides Procalcitonin 06/17/21 06/17/21 06/17/21 15:26 15:26 10:40 WBC Plt Count Neut % (Auto) Lymph # (Auto) Platelet Estimate D-Dimer 0.96 H VBG Lactic Acid 2.6 H Potassium 3.1 L Chloride Carbon Dioxide Anion Gap Creatinine Glucose 177 H Hemoglobin A1c Phosphorus 2.1 L GGT 200 H AST Lactate Dehydrogenase 407 H C-Reactive Protein 10.00 H Albumin Globulin 4.3 H Albumin/Globulin Ratio 0.8 L Triglycerides 227 H Procalcitonin 06/17/21 06/17/21 10:40 10:40 WBC Plt Count 590 H Neut % (Auto) 79.7 H Lymph # (Auto) 1.25 L Platelet Estimate D-Dimer VBG Lactic Acid Potassium Chloride 93 L Carbon Dioxide 21 L Anion Gap 19.0 H Creatinine Glucose 248 H Hemoglobin A1c Phosphorus GGT AST Lactate Dehydrogenase C-Reactive Protein Albumin 3.1 L Globulin 5.1 H Albumin/Globulin Ratio 0.6 L Triglycerides Procalcitonin Meds: Medications Acetaminophen (Acetaminophen 325 Mg Tablet) 650 mg PO Q4HP PRN; Protocol PRN Reason: Pain/Fever > 100.4 Last Admin: 06/19/21 08:33 Dose: 650 mg Documented by: Hydrocodone Bitart/Acetaminophen (Hydrocodone/Apap 5/325mg Tablet) 1 tab PO Q6HP PRN; Protocol PRN Reason: Per Pain Protocol Bupropion HCl (Bupropion 150 Mg Tab.Xl.24h) 150 mg PO DAILY VINCE Last Admin: 06/19/21 08:33 Dose: 150 mg Documented by: Dexamethasone (Dexamethasone 10 Mg/Ml Vial) 6 mg IV DAILY [facility] Stop: 06/27/21 14:49 Last Admin: 06/19/21 08:33 Dose: 6 mg Documented by: Diagnostic Test (Pha) (Accu-Chek 1 Each Strip) 1 each FS [facility] Last Admin: 06/19/21 11:27 Dose: 1 each Documented by: Enoxaparin Sodium (Enoxaparin 40 Mg/0.4 Ml Syringe) 40 mg SQ BID [facility] Last Admin: 06/19/21 08:32 Dose: 40 mg Documented by: Fluticasone Propionate (Fluticasone Propionate [place].Keaton) 1 spray NS BIDP PRN PRN Reason: nasal congestion Guaifenesin/Codeine Phosphate (Guaifenesin/Codeine 10 Ml Udc) 5 ml PO Q8HP PRN PRN Reason: Cough Last Admin: 06/17/21 19:58 Dose: 5 ml Documented by: Hydroxyzine HCl (Hydroxyzine 25 Mg Tablet) 25 mg PO Q6HP PRN PRN Reason: Anxiety Last Admin: 06/19/21 02:53 Dose: 25 mg Documented by: REMDESIVIR 100 mg/ Sodium (Chloride) 250 mls @ 500 mls/hr IV Q24H [facility] Stop: 06/21/21 14:29 Last Infusion: 06/18/21 15:30 Dose: Infused Documented by: Piperacillin Sod/Tazobactam (Sod 4.5 gm/ Dextrose) 50 mls @ 100 mls/hr IV Q6H [facility]; Protocol Last Infusion: 06/19/21 09:55 Dose: Infused Documented by: Insulin Glargine (Insulin Glargine, Human 1 Unit/0.01 Ml) 10 unit SQ [facility] Last Admin: 06/18/21 21:05 Dose: 10 units Documented by: Insulin Human Lispro (Insulin Lispro 1 Unit/0.01 Ml Unit) 0 unit SQ [facility]; Protocol Last Admin: 06/19/21 11:26 Dose: 8 unit Documented by: Lactulose (Lactulose 20 Gm/30 Ml Oral.Ruth) 10 gm PO DAILYP PRN PRN Reason: Constipation Loperamide HCl (Loperamide 2 Mg Capsule) 2 mg PO PRN PRN PRN Reason: Diarrhea Ondansetron HCl (Ondansetron 4 Mg/2 Ml Vial) 4 mg IV Q4HP PRN; Protocol PRN Reason: Nausea And Vomiting Senna (Sennosides 1 Tablet) 2 tab PO HSP PRN PRN Reason: Constipation Sodium Chloride (0.9 % Sodium Chloride 10 Ml Syringe) 10 ml IV Q8 [facility] Last Admin: 06/19/21 06:52 Dose: Not Given Documented by: A/P Narrative A/P Narrative: Assessment: 36 year old female with a history of type 2 diabetes mellitus, depression, obesity admitted for acute hypoxic respiratory failure secondary to COVID-19 pneumonia. #Acute hypoxic respiratory failure #Severe COVID-19 pneumonia #Possible bacterial pneumonia coinffection #Type 2 diabetes mellitus #Thrombocytosis #Anion gap metabolic acidosis #Resolved lactic acidosis #Hisotory of depression #BMI 39 Plan -ICU status. -Dexamethasone and Remdesivir per COVID-19 guidelines. -Oxygen supplementation. -Start Zosyn for possible pneumonia-fever and leukocytosis -MRSA nasal PCR. -IV fluid bolus today. -Daily CBC and inpatient panel until more stable. -Trend CRP. -Lantus and SSI-med. -Continue home Wellbutrin. -Regular diet. -monitor worker. -CTA chest. -DVT ppx: Lovenox SQ BID -Code status: Surgical Manager Spent With Patient Time: Total time spent is greater than 50% in coordination of care (as documented) at patient's floor/unit and/or counseling patient: QUALITY VTE Deep Vein Thrombosis/Pulmonary Embolism Present on Admission: No
[2021-06-19] MEDS ORDERED: LACTULOSE 20 GM/30 ML ORAL.SOL PO PRN (11:41)
[2021-06-19] MEDS ORDERED: hydrOXYzine 25 MG TABLET PO PRN (11:41)
[2021-06-19] MEDS ORDERED: SENNOSIDES 1 TABLET PO PRN (11:41)
[2021-06-19] MEDS ORDERED: ONDANSETRON 4 MG/2 ML VIAL IV PRN (11:41)
[2021-06-19] MEDS: guaiFENesin/CODEINE 10 ML UDC PO PRN ×2 (11:59→22:03)
[2021-06-19] MEDS: PIPERACILLIN SODIUM/TAZOBACTAM 4.5 GM in DEXTROSE 5% IN WATER 50 ML IV SCH ×3 (11:59→23:45)
[2021-06-19] MEDS: REMDESIVIR 100 MG in 0.9 % SODIUM CHLORIDE 250 ML IV SCH (13:45)
--- NOTE | 2021-06-19 14:05 | Internal Med Progress Note ---
SUBJECTIVE Subjective Patient information: Note initiated : 06/19/21 at 1:57 pm Service Date, if different from initiated Date: [] Patient: Niya Piper a 36 y/o F admitted on 06/17/21 for covid +, cough, chills, headache, SOB. Chief Complaint: [] Interval history: Ms. Piper is a 36 year old female with a history of depression and obesity who says she was diagnosed with COVID-19 at an outside facility on about 06/09/21. She presented to the [facility] ED last week with a cough and fever and was discharged to home. She returned to the ED on the day of admission with shortness of breath and hypoxia. Chest xray showed progression of bilateral pneumonia. Lab work was remarkable for a neutrophil count of 590, lactic acid 2.6, anion gap metabolic acidosis. The patient required 15 L/min oxygen via a non-rebreather mask, respiratory rate is 30-40. When I saw the patient she was proning and was able to speak comfortably in full sentences. She says she feel comfortable on oxygen supplementation while at rest. 06/18: Continues on HHFNC with high FiO2. The patient does not feel dyspnea at rest, desaturates with minimal activity. CRP decreased 10 to 6.9. Chest xray shows stable bilateral pneumonia. Added Atarax prn for anxiety. Encouraged self proning and discussed COVID-19 management. 06/19: Continues on HHFNC high FiO2, 80% but weaned to 70% this morning, hypoxia improves with proning position. Had a fever overnight and new leukocytosis tod ay, added Zosyn and ordered MRSA nasal PCR. Procalcitonin checked but not elevated to suggest bacterial pneumonia. Upgraded to ICU status and discussed with Anaesthesia. D-dimer still elevated, CTA chest ordered. Blood glucose elevated. 06/20 Constitutional Vitals: Vital Signs Temp Pulse Resp BP Pulse Ox 97 F 99 H 19 122/63 93 06/19/21 12:00 06/19/21 09:35 06/19/21 12:00 06/19/21 12:00 06/19/21 12:00 Period Temp Pulse Resp BP Sys/Ordonez Pulse Ox Last 24 Hr 97 F-100.5 F 99-99 14-33 95-124/45-75 88-99 Intake and Output 06/18/21 06/19/21 06/19/21 21:59 05:59 13:59 Intake Total 650 877 Output Total 1200 150 150 Balance -550 -150 727 Weight 97.749 kg Intake & Output: Intake & Output 06/18/21 06/19/21 06/19/21 21:59 05:59 13:59 Intake Total 650 877 Output Total 1200 150 150 Balance -550 -150 727 Weight 97.749 kg Intake: Nourishment/Supplement quantity 240 (ml) IV 250 117 Sodium Chloride 0.9% 1,000 ml @ 17 Wide Open IV [facility] Rx#: [id number] Zosyn 4.5 gm In Dextrose 5% in 100 Water 50 ml @ 100 mls/hr IV Q6H [facility] Rx#:[id number] Veklury 100 mg In Sodium 250 Chloride 0.9% 250 ml @ 500 mls/ hr IV Q24H [facility] Rx#:[id number] Oral 400 520 Output: Urine Catheter Amount 975 Void Amount 225 150 150 Other: Meal Lunch Percent of Meal Consumed 25% Feeding Ability Independent Nourishment/Supplement name Glucerna Urine Appearance Clear Clear Urine Color Bright Yellow Bright Yellow Dark Dulce Urine Odor Normal # Voids 1 Exam: General: Alert, Awake, No acute Distress, obese Eyes/N/T: EOMI, Head/Neck: neck supple, CV: RRR, No murmurs, Pulm: no wheezing Abd: soft, nontender, +BS x4 Ext: no clubbing/cyanosis/edema Neuro: Alert, no focal deficits, moves all extremities, Skin: warm/dry OBJ DATA Labs CBC & Chem 7: 06/19/21 05:13 06/19/21 05:14 Labs: Abnormal Lab Results 06/19/21 06/19/21 06/19/21 05:14 05:14 05:14 WBC Plt Count Neut % (Auto) Lymph # (Auto) Platelet Estimate D-Dimer VBG Lactic Acid Potassium Chloride Carbon Dioxide Anion Gap 18.0 H Creatinine Glucose 107 H Hemoglobin A1c Phosphorus GGT 182 H AST 40 H Lactate Dehydrogenase 469 H C-Reactive Protein 4.60 H Albumin 3.1 L Globulin 4.0 H Albumin/Globulin Ratio 0.8 L Triglycerides 172 H Procalcitonin 0.16 H 06/19/21 06/19/21 06/18/21 05:14 05:13 05:16 WBC 11.1 H Plt Count 591 H Neut % (Auto) Lymph # (Auto) Platelet Estimate Increased A D-Dimer 0.86 H VBG Lactic Acid Potassium Chloride Carbon Dioxide Anion Gap Creatinine 0.5 L Glucose 146 H Hemoglobin A1c Phosphorus GGT 185 H AST Lactate Dehydrogenase 450 H C-Reactive Protein Albumin Globulin 4.0 H Albumin/Globulin Ratio 0.8 L Triglycerides 245 H Procalcitonin 06/18/21 06/18/21 06/18/21 05:15 05:15 05:15 WBC Plt Count 596 H Neut % (Auto) Lymph # (Auto) Platelet Estimate Increased A D-Dimer 0.96 H VBG Lactic Acid Potassium Chloride Carbon Dioxide Anion Gap Creatinine Glucose Hemoglobin A1c 8.7 H Phosphorus GGT AST Lactate Dehydrogenase C-Reactive Protein 6.90 H Albumin Globulin Albumin/Globulin Ratio Triglycerides Procalcitonin 06/17/21 06/17/21 06/17/21 15:26 15:26 10:40 WBC Plt Count Neut % (Auto) Lymph # (Auto) Platelet Estimate D-Dimer 0.96 H VBG Lactic Acid 2.6 H Potassium 3.1 L Chloride Carbon Dioxide Anion Gap Creatinine Glucose 177 H Hemoglobin A1c Phosphorus 2.1 L GGT 200 H AST Lactate Dehydrogenase 407 H C-Reactive Protein 10.00 H Albumin Globulin 4.3 H Albumin/Globulin Ratio 0.8 L Triglycerides 227 H Procalcitonin 06/17/21 06/17/21 10:40 10:40 WBC Plt Count 590 H Neut % (Auto) 79.7 H Lymph # (Auto) 1.25 L Platelet Estimate D-Dimer VBG Lactic Acid Potassium Chloride 93 L Carbon Dioxide 21 L Anion Gap 19.0 H Creatinine Glucose 248 H Hemoglobin A1c Phosphorus GGT AST Lactate Dehydrogenase C-Reactive Protein Albumin 3.1 L Globulin 5.1 H Albumin/Globulin Ratio 0.6 L Triglycerides Procalcitonin Meds: Medications Acetaminophen (Acetaminophen 325 Mg Tablet) 650 mg PO Q4HP PRN; Protocol PRN Reason: Pain/Fever > 100.4 Hydrocodone Bitart/Acetaminophen (Hydrocodone/Apap 5/325mg Tablet) 1 tab PO Q 6HP PRN; Protocol PRN Reason: Per Pain Protocol Bupropion HCl (Bupropion 150 Mg Tab.Xl.24h) 150 mg PO DAILY VIN[facility] Dexamethasone (Dexamethasone 10 Mg/Ml Vial) 6 mg IV DAILY [facility] Stop: 06/27/21 14:49 Diagnostic Test (Pha) (Accu-Chek 1 Each Strip) 1 each FS [facility] Enoxaparin Sodium (Enoxaparin 40 Mg/0.4 Ml Syringe) 40 mg SQ BID [facility] Fluticasone Propionate (Fluticasone Propionate [place].Keaton) 1 spray NS BID PRN PRN Reason: nasal congestion Guaifenesin/Codeine Phosphate (Guaifenesin/Codeine 10 Ml Udc) 5 ml PO Q8HP PRN PRN Reason: Cough Last Admin: 06/19/21 11:59 Dose: 5 ml Documented by: Hydroxyzine HCl (Hydroxyzine 25 Mg Tablet) 25 mg PO Q6HP PRN PRN Reason: Anxiety Piperacillin Sod/Tazobactam (Sod 4.5 gm/ Dextrose) 50 mls @ 100 mls/hr IV Q6H [facility]; Protocol Last Infusion: 06/19/21 12:53 Dose: Infused Documented by: REMDESIVIR 100 mg/ Sodium (Chloride) 250 mls @ 500 mls/hr IV Q24H [facility] Stop: 06/21/21 14:29 Last Admin: 06/19/21 13:45 Dose: 500 mls/hr Documented by: Insulin Glargine (Insulin Glargine, Human 1 Unit/0.01 Ml) 10 unit SQ [facility] Insulin Human Lispro (Insulin Lispro 1 Unit/0.01 Ml Unit) 0 unit SQ [facility]; Protocol Lactulose (Lactulose 20 Gm/30 Ml Oral.Ruth) 10 gm PO DAILYP PRN PRN Reason: Constipation Loperamide HCl (Loperamide 2 Mg Capsule) 2 mg PO PRN PRN PRN Reason: Diarrhea Ondansetron HCl (Ondansetron 4 Mg/2 Ml Vial) 4 mg IV Q4HP PRN; Protocol PRN Reason: Nausea And Vomiting Senna (Sennosides 1 Tablet) 2 tab PO HSP PRN PRN Reason: Constipation Sodium Chloride (0.9 % Sodium Chloride 10 Ml Syringe) 10 ml IV Q8 [facility] Last Admin: 06/19/21 13:46 Dose: 10 ml Documented by: A/P Narrative A/P Narrative: A: #Severe COVID-19 pneumonia w/ARDS & ??Possible bacterial pneumonia co-infection: #Acute hypoxic respiratory failure: 2/2 above #Type 2 diabetes mellitus: A1c 8.7 #Thrombocytosis : #Anion gap metabolic acidosis / lactic acidosis: resolved #Depression #Obesity: BMI 39 Plan -Dexamethasone / Remdesivir -Oxygen supplementation wean as able -d/c Zosyn if cx neg and if f/u procalcitonin unremarkable. MRSA PCR (+) -Trend CRP. -Lantus and SSI -CTA chest pending -DVT ppx: Lovenox SQ BID Code status: Bobbin Winder Tender Spent With Patient Time: Total time spent is greater than 50% in coordination of care (as documented) at patient's floor/unit and/or counseling patient: QUALITY VTE Deep Vein Thrombosis/Pulmonary Embolism Present on Admission: No
[2021-06-19 14:50] LABS: Ferritin 92.7 ng/mL (13.0-150.0)
[2021-06-19] MEDS ORDERED: IOPAMIDOL 100 ML BOTTLE IV ONE (15:22)
--- NOTE | 2021-06-19 15:35 | Cat Scan Report ---
History: COVID pneumonia, hypoxia, elevated d-dimer level, evaluate for pulmonary emboli TECHNIQUE: Following injection of intravenous nonionic contrast the patient was scanned during the pulmonary arterial phase. Sagittal, coronal and axial MIPS images were created. The radiation exposure was limited using dose reduction technology. FINDINGS: There are widespread groundglass alveolar infiltrates throughout both lungs. This has a mosaic distribution. The greatest involvement is in the lower lobes. There is no lobar consolidation. No pleural effusion is present. There are a few small reactive lymph nodes in the mediastinum and owen. The largest is located lateral to the aortic arch and measures 5 x 15 mm. The pulmonary arteries are normal without evidence of emboli. Aorta is normal in caliber. There is no plaque formation. The heart is normal in size and contour. The trachea and bronchi are normal. IMPRESSION: Severe COVID pneumonia No evidence of pulmonary emboli The hospitalist was called with the report Interpreted and Authenticated by: Jordi Mccarthy 06/19/21
[2021-06-19] MEDS ORDERED: LORazepam 2 MG/ML VIAL IV PRN (17:17)
[2021-06-19] MEDS: IPRATROPIUM/ALBUTEROL 3 ML AMPUL.NEB NEB SCH ×2 (18:00→22:16)
[2021-06-19] MEDS: INSULIN GLARGINE, HUMAN 1 UNIT/0.01 ML SQ SCH (21:00)
[2021-06-20] MEDS: 0.9 % SODIUM CHLORIDE 10 ML SYRINGE IV SCH ×4 (01:00→21:09)
[2021-06-20] MEDS: HYDROcodone/APAP 5/325MG TABLET PO PRN ×4 (02:15→23:35)
[2021-06-20] MEDS: IPRATROPIUM/ALBUTEROL 3 ML AMPUL.NEB NEB SCH ×3 (04:07→21:00)
[2021-06-20] MEDS: guaiFENesin/CODEINE 10 ML UDC PO PRN ×2 (05:47→19:32)
[2021-06-20] MEDS: PIPERACILLIN SODIUM/TAZOBACTAM 4.5 GM in DEXTROSE 5% IN WATER 50 ML IV SCH ×2 (05:47→14:53)
[2021-06-20 07:03] LABS: ALT/SGPT 14 U/L (<40); AST/SGOT 23 U/L (<32); Albumin 2.8 gm/dL (3.2-5.2); Albumin/Globulin Ratio 0.8 (1.0-2.3); Alkaline Phosphatase 66 U/L (39-117); Bilirubin,Direct < 0.2 mg/dL (0-0.3); Bilirubin,Total 0.5 mg/dL (0.1-1.0); Blood Urea Nitrogen 9 mg/dL (6-20); Calcium 8.6 mg/dL (8.6-10.4); Carbon Dioxide 23 mmol/L (22-30); Chloride 100 mmol/L (96-108); Globulin 3.7 gm/dL (2.2-3.7); Glomerular Filtration Rate 119; Glucose 100 mg/dL (70-105); Lactate Dehydrogenase 516 U/L (135-225); Phosphorous 3.8 mg/dL (2.5-4.5); Triglycerides 96 mg/dL (<150); Uric Acid 2.9 mg/dL (2.5-8.0)
[2021-06-20] MEDS: INSULIN LISPRO 1 UNIT/0.01 ML UNIT SQ SCH ×4 (07:38→21:55)
[2021-06-20] MEDS: ACETAMINOPHEN 325 MG TABLET PO PRN (07:41)
[2021-06-20 08:24] LABS: Hematocrit 35.2 % (34.1-44.9); Hemoglobin 11.1 g/dL (11.2-15.7); Mean Corpuscular HGB Conc 31.5 g/dL (31.0-36.0); Mean Platelet Volume 9.8 fL (7.4-10.4); Platelet Count 533 K/mcL (140-440); RBC 3.91 M/mcL (3.59-5.38); Red Cell Distribution Width 13.1 % (11.5-14.5); WBC 9.3 K/mcL (4.5-11.0)
--- NOTE | 2021-06-20 08:30 | Internal Med Progress Note ---
SUBJECTIVE Subjective Patient information: Note initiated : 06/20/21 at 8:26 am Service Date, if different from initiated Date: [] Patient: Niya Piper a 36 y/o F admitted on 06/17/21 for covid +, cough, chills, headache, SOB. Chief Complaint: [] Interval history: Ms. Piper is a 36 year old female with a history of depression and obesity who says she was diagnosed with COVID-19 at an outside facility on about 06/09/21. She presented to the [facility] ED last week with a cough and fever and was discharged to home. She returned to the ED on the day of admission with shortness of breath and hypoxia. Chest xray showed progression of bilateral pneumonia. Lab work was remarkable for a neutrophil count of 590, lactic acid 2.6, anion gap metabolic acidosis. The patient required 15 L/min oxygen via a non-rebreather mask, respiratory rate is 30-40. When I saw the patient she was proning and was able to speak comfortably in full sentences. She says she feel comfortable on oxygen supplementation while at rest. 06/18: Continues on HHFNC with high FiO2. The patient does not feel dyspnea at rest, desaturates with minimal activity. CRP decreased 10 to 6.9. Chest xray shows stable bilateral pneumonia. Added Atarax prn for anxiety. Encouraged self proning and discussed COVID-19 management. 06/19: Continues on HHFNC high FiO2, 80% but weaned to 70% this morning, hypoxia improves with proning position. Had a fever overnight and new leukocytosis tod ay, added Zosyn and ordered MRSA nasal PCR. Procalcitonin checked but not elevated to suggest bacterial pneumonia. Upgraded to ICU status and discussed with Anaesthesia. D-dimer still elevated, CTA chest ordered. Blood glucose elevated. 06/20 patient on Vapotherm 40 liters per minute and FiO2 anywhere between 55 and 70%. Patient states she feels better and that she feels like she can take a deeper breath. She does desat with movement. Laboratory is improving. Patient is proning. She has a cough productive of yellow sputum. Occasional headache. Review of Systems: denies fever/chills/nausea/vomiting/chest or abdominal pain/diarrhea. Otherwise see above. Constitutional Vitals: Vital Signs Temp Pulse Resp BP Pulse Ox 101.5 F H 88 29 H 128/64 92 06/20/21 08:01 06/20/21 06:54 06/20/21 08:01 06/20/21 08:01 06/20/21 08:01 Period Temp Pulse Resp BP Sys/Ordonez Pulse Ox Last 24 Hr 97 F-101.5 F 85-99 17-31 85-140/44-81 87-99 Intake and Output 06/19/21 06/20/21 06/20/21 21:59 05:59 13:59 Intake Total 620 170 170 Output Total 1400 200 Balance -780 -30 170 Weight 106.957 kg Intake & Output: Intake & Output 06/19/21 06/20/21 06/20/21 21:59 05:59 13:59 Intake Total 620 170 170 Output Total 1400 200 Balance -780 -30 170 Weight 106.957 kg Intake: Nourishment/Supplement quantity 200 (ml) IV 300 50 50 Zosyn 4.5 gm In Dextrose 5% in 50 50 50 Water 50 ml @ 100 mls/hr IV Q6H [facility] Rx#:[id number] Veklury 100 mg In Sodium 250 Chloride 0.9% 250 ml @ 500 mls/ hr IV Q24H [facility] Rx#:[id number] Oral 120 120 120 Output: Void Amount 1400 200 Other: Meal Nourishment/Supplement Percent of Meal Consumed 50% Feeding Ability Independent Nourishment/Supplement name Glucerna Urine Appearance Clear Clear Urine Color Bright Yellow Bright Yellow Urine Odor Normal Normal Stool Consistency Watery Exam: General: Alert, Awake, No acute Distress, obese Eyes/N/T: EOMI, Head/Neck: neck supple, CV: RRR, No murmurs, Pulm: diminished b/l, nonlabored, no wheezing Abd: soft, nontender, +BS x4 Ext: no clubbing/cyanosis/edema Neuro: Alert, no focal deficits, moves all extremities, Skin: warm/dry OBJ DATA Labs CBC & Chem 7: 06/20/21 05:37 06/20/21 05:38 Labs: Abnormal Lab Results 06/20/21 06/20/21 06/20/21 05:38 05:38 05:38 WBC Hgb Plt Count Neut % (Auto) Lymph # (Auto) Platelet Estimate D-Dimer VBG Lactic Acid Potassium Chloride Carbon Dioxide Anion Gap Creatinine Glucose Hemoglobin A1c Phosphorus Ferritin 165.4 H GGT 155 H AST Lactate Dehydrogenase 516 H C-Reactive Protein Albumin 2.8 L Globulin Albumin/Globulin Ratio 0.8 L Triglycerides Procalcitonin 0.14 H 06/20/21 06/19/21 06/19/21 05:37 05:14 05:14 WBC Hgb 11.1 L Plt Count 533 H Neut % (Auto) Lymph # (Auto) Platelet Estimate D-Dimer VBG Lactic Acid Potassium Chloride Carbon Dioxide Anion Gap 18.0 H Creatinine Glucose 107 H Hemoglobin A1c Phosphorus Ferritin GGT 182 H AST 40 H Lactate Dehydrogenase 469 H C-Reactive Protein Albumin 3.1 L Globulin 4.0 H Albumin/Globulin Ratio 0.8 L Triglycerides 172 H Procalcitonin 0.16 H 06/19/21 06/19/21 06/19/21 05:14 05:14 05:13 WBC 11.1 H Hgb Plt Count 591 H Neut % (Auto) Lymph # (Auto) Platelet Estimate Increased A D-Dimer 0.86 H VBG Lactic Acid Potassium Chloride Carbon Dioxide Anion Gap Creatinine Glucose Hemoglobin A1c Phosphorus Ferritin GGT AST Lactate Dehydrogenase C-Reactive Protein 4.60 H Albumin Globulin Albumin/Globulin Ratio Triglycerides Procalcitonin 06/18/21 06/18/21 06/18/21 05:16 05:15 05:15 WBC Hgb Plt Count Neut % (Auto) Lymph # (Auto) Platelet Estimate D-Dimer 0.96 H VBG Lactic Acid Potassium Chloride Carbon Dioxide Anion Gap Creatinine 0.5 L Glucose 146 H Hemoglobin A1c 8.7 H Phosphorus Ferritin GGT 185 H AST Lactate Dehydrogenase 450 H C-Reactive Protein 6.90 H Albumin Globulin 4.0 H Albumin/Globulin Ratio 0.8 L Triglycerides 245 H Procalcitonin 06/18/21 06/17/21 06/17/21 05:15 15:26 15:26 WBC Hgb Plt Count 596 H Neut % (Auto) Lymph # (Auto) Platelet Estimate Increased A D-Dimer 0.96 H VBG Lactic Acid Potassium 3.1 L Chloride Carbon Dioxide Anion Gap Creatinine Glucose 177 H Hemoglobin A1c Phosphorus 2.1 L Ferritin GGT 200 H AST Lactate Dehydrogenase 407 H C-Reactive Protein 10.00 H Albumin Globulin 4.3 H Albumin/Globulin Ratio 0.8 L Triglycerides 227 H Procalcitonin 06/17/21 06/17/21 06/17/21 10:40 10:40 10:40 WBC Hgb Plt Count 590 H Neut % (Auto) 79.7 H Lymph # (Auto) 1.25 L Platelet Estimate D-Dimer VBG Lactic Acid 2.6 H Potassium Chloride 93 L Carbon Dioxide 21 L Anion Gap 19.0 H Creatinine Glucose 248 H Hemoglobin A1c Phosphorus Ferritin GGT AST Lactate Dehydrogenase C-Reactive Protein Albumin 3.1 L Globulin 5.1 H Albumin/Globulin Ratio 0.6 L Triglycerides Procalcitonin Meds: Medications Acetaminophen (Acetaminophen 325 Mg Tablet) 650 mg PO Q4HP PRN; Protocol PRN Reason: Pain/Fever > 100.4 Last Admin: 06/20/21 07:41 Dose: 650 mg Documented by: Hydrocodone Bitart/Acetaminophen (Hydrocodone/Apap 5/325mg Tablet) 1 tab PO Q6HP PRN; Protocol PRN Reason: Per Pain Protocol Last Admin: 06/20/21 02:15 Dose: 1 tab Documented by: Albuterol/Ipratropium (Ipratropium/Albuterol 3 Ml Ampul.Neb) 3 ml NEB Q4HRT [facility] Last Admin: 06/20/21 06:53 Dose: 3 ml Documented by: Bupropion HCl (Bupropion 150 Mg Tab.Xl.24h) 150 mg PO DAILY [facility] Dexamethasone (Dexamethasone 10 Mg/Ml Vial) 6 mg IV DAILY [facility] Stop: 06/27/21 14:49 Diagnostic Test (Pha) (Accu-Chek 1 Each Strip) 1 each FS ACHS [facility] Last Admin: 06/20/21 07:38 Dose: 1 each Documented by: Enoxaparin Sodium (Enoxaparin 40 Mg/0.4 Ml Syringe) 40 mg SQ BID [facility] Last Admin: 06/19/21 20:39 Dose: 40 mg Documented by: Fluticasone Propionate (Fluticasone Propionate [place].Keaton) 1 spray NS BID PRN PRN Reason: nasal congestion Guaifenesin/Codeine Phosphate (Guaifenesin/Codeine 10 Ml Udc) 5 ml PO Q8HP PRN PRN Reason: Cough Last Admin: 06/20/21 05:47 Dose: 5 ml Documented by: Hydroxyzine HCl (Hydroxyzine 25 Mg Tablet) 50 mg PO TIDP PRN PRN Reason: anxiety Last Admin: 06/19/21 22:04 Dose: 50 mg Documented by: Piperacillin Sod/Tazobactam (Sod 4.5 gm/ Dextrose) 50 mls @ 100 mls/hr IV Q6H [facility]; Protocol Last Infusion: 06/20/21 06:20 Dose: Infused Documented by: REMDESIVIR 100 mg/ Sodium (Chloride) 250 mls @ 500 mls/hr IV Q24H [facility] Stop: 06/21/21 14:29 Last Infusion: 06/19/21 14:35 Dose: Infused Documented by: Insulin Glargine (Insulin Glargine, Human 1 Unit/0.01 Ml) 10 unit SQ HS [facility] Last Admin: 06/19/21 21:00 Dose: 10 units Documented by: Insulin Human Lispro (Insulin Lispro 1 Unit/0.01 Ml Unit) 0 unit SQ ACHS [facility]; Protocol Last Admin: 06/20/21 07:38 Dose: Not Given Documented by: Lactulose (Lactulose 20 Gm/30 Ml Oral.Ruth) 10 gm PO DAILYP PRN PRN Reason: Constipation Loperamide HCl (Loperamide 2 Mg Capsule) 2 mg PO PRN PRN PRN Reason: Diarrhea Lorazepam (Lorazepam 2 Mg/Ml Vial) 0.5 mg IV Q6HP PRN PRN Reason: ANXIETY/SEDATION Ondansetron HCl (Ondansetron 4 Mg/2 Ml Vial) 4 mg IV Q4HP PRN; Protocol PRN Reason: Nausea And Vomiting Senna (Sennosides 1 Tablet) 2 tab PO HSP PRN PRN Reason: Constipation Sodium Chloride (0.9 % Sodium Chloride 10 Ml Syringe) 10 ml IV Q8 [facility] Last Admin: 06/20/21 05:48 Dose: 10 ml Documented by: A/P Narrative A/P Narrative: A: #Severe COVID-19 pneumonia w/ARDS & ??Possible bacterial pneumonia co-infection: #Acute hypoxic respiratory failure: 2/2 above -no PE on CTA -on vapotherm @40 l/m & fio2 55-70% #Type 2 diabetes mellitus: A1c 8.7 #Thrombocytosis: #Anion gap metabolic acidosis / lactic acidosis: Resolved #Depression #Obesity: BMI 39 Plan -Dexamethasone / Remdesivir -Oxygen supplementation wean as able -daily proning and chair position -d/c Zosyn if SC neg. pending SC -Lantus and SSI -DVT ppx: Lovenox SQ BID Code status: Correctional Cook Spent With Patient Time: Total time spent is greater than 50% in coordination of care (as documented) at patient's floor/unit and/or counseling patient: QUALITY VTE Deep Vein Thrombosis/Pulmonary Embolism Present on Admission: No
[2021-06-20 08:37] LABS: Band Neutrophils % 1 % (0-10); Lymphocytes % 22 % (15-49); Metamyelocytes % 2 %; Monocytes % (Manual) 5 % (1-12); Platelet Estimate NORMAL (Normal); RBC Morphology NORMAL (Normal); Segmented Neutrophils % 70 % (38-78)
[2021-06-20] MEDS ORDERED: IPRATROPIUM/ALBUTEROL 3 ML AMPUL.NEB NEB PRN (09:06)
[2021-06-20] MEDS: ENOXAPARIN 40 MG/0.4 ML SYRINGE SQ SCH ×2 (09:14→21:10)
[2021-06-20] MEDS: DEXAMETHASONE 10 MG/ML VIAL IV SCH (09:14)
[2021-06-20] MEDS: buPROPion 150 MG TAB.XL.24H PO SCH (09:14)
[2021-06-20] MEDS ORDERED: VANCOMYCIN PER PHARMACY IV SCH (12:34)
[2021-06-20] MEDS ORDERED: FUROSEMIDE 20 MG/2 ML VIAL IV ONE (12:35)
[2021-06-20] MEDS: LOPERAMIDE 2 MG CAPSULE PO PRN (12:54)
[2021-06-20] MEDS: VANCOMYCIN 1,500 MG in 0.9 % SODIUM CHLORIDE 500 ML IV SCH ×2 (13:02→21:10)
[2021-06-20] MEDS: REMDESIVIR 100 MG in 0.9 % SODIUM CHLORIDE 250 ML IV SCH (14:39)
[2021-06-20] MEDS: hydrOXYzine 25 MG TABLET PO PRN (17:30)
[2021-06-20] MEDS: INSULIN GLARGINE, HUMAN 1 UNIT/0.01 ML SQ SCH (21:25)
[2021-06-21] MEDS: hydrOXYzine 25 MG TABLET PO PRN ×2 (03:11→20:30)
[2021-06-21] MEDS: guaiFENesin/CODEINE 10 ML UDC PO PRN ×3 (04:34→22:09)
[2021-06-21] MEDS: 0.9 % SODIUM CHLORIDE 10 ML SYRINGE IV SCH ×4 (04:35→20:55)
[2021-06-21] MEDS: IPRATROPIUM/ALBUTEROL 3 ML AMPUL.NEB NEB SCH ×2 (07:17→20:14)
[2021-06-21 07:35] LABS: ALT/SGPT 10 U/L (<40); AST/SGOT 18 U/L (<32); Albumin 2.7 gm/dL (3.2-5.2); Albumin/Globulin Ratio 0.7 (1.0-2.3); Alkaline Phosphatase 62 U/L (39-117); Bilirubin,Direct < 0.2 mg/dL (0-0.3); Bilirubin,Total 0.5 mg/dL (0.1-1.0); Blood Urea Nitrogen 8 mg/dL (6-20); Calcium 8.8 mg/dL (8.6-10.4); Carbon Dioxide 24 mmol/L (22-30); Chloride 101 mmol/L (96-108); Globulin 3.9 gm/dL (2.2-3.7); Glomerular Filtration Rate 126; Glucose 94 mg/dL (70-105); Lactate Dehydrogenase 475 U/L (135-225); Phosphorous 2.6 mg/dL (2.5-4.5); Triglycerides 104 mg/dL (<150); Uric Acid 3.3 mg/dL (2.5-8.0)
[2021-06-21] MEDS: buPROPion 150 MG TAB.XL.24H PO SCH (08:12)
[2021-06-21] MEDS: ENOXAPARIN 40 MG/0.4 ML SYRINGE SQ SCH ×2 (08:13→20:30)
[2021-06-21] MEDS: DEXAMETHASONE 10 MG/ML VIAL IV SCH (08:13)
[2021-06-21] MEDS: INSULIN LISPRO 1 UNIT/0.01 ML UNIT SQ SCH ×4 (08:23→20:59)
[2021-06-21] MEDS ORDERED: POTASSIUM CHLORIDE 20 MEQ TABLET PO ONE (08:51)
--- NOTE | 2021-06-21 08:52 | Internal Med Progress Note ---
SUBJECTIVE Subjective Patient information: Note initiated : 06/21/21 at 8:48 am Service Date, if different from initiated Date: [] Patient: Niya Piper a 36 y/o F admitted on 06/17/21 for covid +, cough, chills, headache, SOB. Chief Complaint: [] Interval history: Ms. Piper is a 36 year old female with a history of depression and obesity who says she was diagnosed with COVID-19 at an outside facility on about 06/09/21. She presented to the [facility] ED last week with a cough and fever and was discharged to home. She returned to the ED on the day of admission with shortness of breath and hypoxia. Chest xray showed progression of bilateral pneumonia. Lab work was remarkable for a neutrophil count of 590, lactic acid 2.6, anion gap metabolic acidosis. The patient required 15 L/min oxygen via a non-rebreather mask, respiratory rate is 30-40. When I saw the patient she was proning and was able to speak comfortably in full sentences. She says she feel comfortable on oxygen supplementation while at rest. 06/18: Continues on HHFNC with high FiO2. The patient does not feel dyspnea at rest, desaturates with minimal activity. CRP decreased 10 to 6.9. Chest xray shows stable bilateral pneumonia. Added Atarax prn for anxiety. Encouraged self proning and discussed COVID-19 management. 06/19: Continues on HHFNC high FiO2, 80% but weaned to 70% this morning, hypoxia improves with proning position. Had a fever overnight and new leukocytosis tod ay, added Zosyn and ordered MRSA nasal PCR. Procalcitonin checked but not elevated to suggest bacterial pneumonia. Upgraded to ICU status and discussed with Anaesthesia. D-dimer still elevated, CTA chest ordered. Blood glucose elevated. 06/20 patient on Vapotherm 40 liters per minute and FiO2 anywhere between 55 and 70%. Patient states she feels better and that she feels like she can take a deeper breath. She does desat with movement. Laboratory is improving. Patient is proning. She has a cough productive of yellow sputum. Occasional headache. 06/21 Patient feeling fine. Comfortable on Vapotherm. Desats with movement but recovers. Patient's FiO2 at 70%. Has occasional cough. Shortness of breath she feels is improving. Review of Systems: denies fever/chills/nausea/vomiting/chest or abdominal pain/diarrhea. Otherwise see above. Constitutional Vitals: Vital Signs Temp Pulse Resp BP Pulse Ox 99.4 F H 90 31 H 108/58 92 06/21/21 08:01 06/21/21 07:22 06/21/21 08:01 06/21/21 08:01 06/21/21 08:01 Period Temp Pulse Resp BP Sys/Ordonez Pulse Ox Last 24 Hr 98.0 F-99.4 F 88-93 19-35 102-129/52-71 87-96 Intake and Output 06/20/21 06/21/21 06/21/21 21:59 05:59 13:59 Intake Total 1230 620 0 Output Total 1900 275 Balance -670 345 0 Weight 103.646 kg Intake & Output: Intake & Output 06/20/21 06/21/21 06/21/21 21:59 05:59 13:59 Intake Total 1230 620 0 Output Total 1900 275 Balance -670 345 0 Weight 103.646 kg Intake: Nourishment/Supplement quantity 240 (ml) IV 750 500 Veklury 100 mg In Sodium 250 Chloride 0.9% 250 ml @ 500 mls/ hr IV Q24H [facility] Rx#:[id number] Vancomycin 1,500 mg In Sodium 500 500 Chloride 0.9% 500 ml @ 333.3 mls/hr IV Q12H [facility] Rx#: [id number] Oral 240 120 0 Output: Void Amount 1900 125 Urine/Stool Mix 150 Other: Meal Dinner Percent of Meal Consumed 75% Feeding Ability Independent Nourishment/Supplement name Glucerna Urine Appearance Clear Clear Urine Color Bright Yellow Bright Yellow Urine Odor Normal Stool Consistency Liquid Watery Exam: General: Alert, Awake, No acute Distress, obese Eyes/N/T: EOMI, Head/Neck: neck supple, CV: RRR, No murmurs, Pulm: diminished b/l but improved, nonlabored, no wheezing Abd: soft, nontender, +BS x4 Ext: no clubbing/cyanosis/edema Neuro: Alert, no focal deficits, moves all extremities, Skin: warm/dry OBJ DATA Labs CBC & Chem 7: 06/20/21 05:37 06/21/21 05:40 Labs: Abnormal Lab Results 06/21/21 06/21/21 06/21/21 05:41 05:40 05:40 WBC Hgb Plt Count Platelet Estimate D-Dimer Potassium 3.2 L Anion Gap Creatinine 0.5 L Glucose Hemoglobin A1c Ferritin 162.6 H GGT 140 H AST Lactate Dehydrogenase 475 H C-Reactive Protein 11.10 H Albumin 2.7 L Globulin 3.9 H Albumin/Globulin Ratio 0.7 L Triglycerides Procalcitonin 06/20/21 06/20/21 06/20/21 05:38 05:38 05:38 WBC Hgb Plt Count Platelet Estimate D-Dimer Potassium Anion Gap Creatinine Glucose Hemoglobin A1c Ferritin 165.4 H GGT 155 H AST Lactate Dehydrogenase 516 H C-Reactive Protein Albumin 2.8 L Globulin Albumin/Globulin Ratio 0.8 L Triglycerides Procalcitonin 0.14 H 06/20/21 06/20/21 06/19/21 05:37 05:37 05:14 WBC Hgb 11.1 L Plt Count 533 H Platelet Estimate D-Dimer Potassium Anion Gap Creatinine Glucose Hemoglobin A1c Ferritin GGT AST Lactate Dehydrogenase C-Reactive Protein 8.30 H Albumin Globulin Albumin/Globulin Ratio Triglycerides Procalcitonin 0.16 H 06/19/21 06/19/21 06/19/21 05:14 05:14 05:14 WBC Hgb Plt Count Platelet Estimate D-Dimer 0.86 H Potassium Anion Gap 18.0 H Creatinine Glucose 107 H Hemoglobin A1c Ferritin GGT 182 H AST 40 H Lactate Dehydrogenase 469 H C-Reactive Protein 4.60 H Albumin 3.1 L Globulin 4.0 H Albumin/Globulin Ratio 0.8 L Triglycerides 172 H Procalcitonin 06/19/21 06/18/21 06/18/21 05:13 05:15 05:15 WBC 11.1 H Hgb Plt Count 591 H Platelet Estimate Increased A Increased A D-Dimer Potassium Anion Gap Creatinine Glucose Hemoglobin A1c 8.7 H Ferritin GGT AST Lactate Dehydrogenase C-Reactive Protein Albumin Globulin Albumin/Globulin Ratio Triglycerides Procalcitonin Meds: Medications Acetaminophen (Acetaminophen 325 Mg Tablet) 650 mg PO Q4HP PRN; Protocol PRN Reason: Pain/Fever > 100.4 Last Admin: 06/20/21 07:41 Dose: 650 mg Documented by: Hydrocodone Bitart/Acetaminophen (Hydrocodone/Apap 5/325mg Tablet) 1 tab PO Q4HP PRN; Protocol PRN Reason: Per Pain Protocol Last Admin: 06/20/21 23:35 Dose: 1 tab Documented by: Albuterol/Ipratropium (Ipratropium/Albuterol 3 Ml Ampul.Neb) 3 ml NEB Q12 [facility] Last Admin: 06/21/21 07:17 Dose: 3 ml Documented by: Albuterol/Ipratropium (Ipratropium/Albuterol 3 Ml Ampul.Neb) 3 ml NEB Q4HP PRN PRN Reason: Shortness Of Breath Bupropion HCl (Bupropion 150 Mg Tab.Xl.24h) 150 mg PO DAILY [facility] Last Admin: 06/21/21 08:12 Dose: 150 mg Documented by: Dexamethasone (Dexamethasone 10 Mg/Ml Vial) 6 mg IV DAILY [facility] Stop: 06/27/21 14:49 Last Admin: 06/21/21 08:13 Dose: 6 mg Documented by: Diagnostic Test (Pha) (Accu-Chek 1 Each Strip) 1 each FS ACHS [facility] Last Admin: 06/21/21 08:23 Dose: 1 each Documented by: Enoxaparin Sodium (Enoxaparin 40 Mg/0.4 Ml Syringe) 40 mg SQ BID [facility] Last Admin: 06/21/21 08:13 Dose: 40 mg Documented by: Fluticasone Propionate (Fluticasone Propionate [place].Keaton) 1 spray NS BID PRN PRN Reason: nasal congestion Guaifenesin/Codeine Phosphate (Guaifenesin/Codeine 10 Ml Udc) 10 ml PO Q8HP PRN PRN Reason: Cough Last Admin: 06/21/21 04:34 Dose: 10 ml Documented by: Hydroxyzine HCl (Hydroxyzine 25 Mg Tablet) 50 mg PO TIDP PRN PRN Reason: anxiety Last Admin: 06/21/21 03:11 Dose: 50 mg Documented by: REMDESIVIR 100 mg/ Sodium (Chloride) 250 mls @ 500 mls/hr IV Q24H [facility] Stop: 06/21/21 14:29 Last Infusion: 06/20/21 15:09 Dose: Infused Documented by: Vancomycin HCl 1,500 mg/ (Sodium Chloride) 500 mls @ 333.3 mls/hr IV Q12H [facility] Last Infusion: 06/20/21 23:30 Dose: Infused Documented by: Insulin Glargine (Insulin Glargine, Human 1 Unit/0.01 Ml) 10 unit SQ HS [facility] Last Admin: 06/20/21 21:25 Dose: 10 units Documented by: Insulin Human Lispro (Insulin Lispro 1 Unit/0.01 Ml Unit) 0 unit SQ ACHS [facility]; Protocol Last Admin: 06/21/21 08:23 Dose: Not Given Documented by: Lactulose (Lactulose 20 Gm/30 Ml Oral.Ruth) 10 gm PO DAILYP PRN PRN Reason: Constipation Loperamide HCl (Loperamide 2 Mg Capsule) 2 mg PO PRN PRN PRN Reason: Diarrhea Last Admin: 06/20/21 12:54 Dose: 2 mg Documented by: Lorazepam (Lorazepam 2 Mg/Ml Vial) 0.5 mg IV Q6HP PRN PRN Reason: ANXIETY/SEDATION Ondansetron HCl (Ondansetron 4 Mg/2 Ml Vial) 4 mg IV Q4HP PRN; Protocol PRN Reason: Nausea And Vomiting Senna (Sennosides 1 Tablet) 2 tab PO HSP PRN PRN Reason: Constipation Sodium Chloride (0.9 % Sodium Chloride 10 Ml Syringe) 10 ml IV Q8 [facility] Last Admin: 06/21/21 04:35 Dose: 10 ml Documented by: Vancomycin HCl (Vancomycin Per Pharmacy) 1 order IV [facility]; Protocol A/P Narrative A/P Narrative: A: #Severe COVID-19 pneumonia w/ARDS & Bacterial (Staph aureus) pneumonia co-infection: -febrile yesterday morning #Acute hypoxic respiratory failure: 2/2 above -no PE on CTA -on vapotherm @40 l/m & fio2 70% #Type 2 diabetes mellitus: A1c 8.7 #Thrombocytosis: #Anion gap metabolic acidosis / lactic acidosis: Resolved #Depression #Obesity: BMI 39 Plan -Dexamethasone / Remdesivir -Oxygen supplementation wean as able -daily proning and chair position -cont vanco pending SC -Lantus and SSI -DVT ppx: Lovenox SQ BID Code status: Dishwasher Spent With Patient Time: Total time spent is greater than 50% in coordination of care (as documented) at patient's floor/unit and/or counseling patient: QUALITY VTE Deep Vein Thrombosis/Pulmonary Embolism Present on Admission: No
[2021-06-21] MEDS ORDERED: FUROSEMIDE 40 MG/4 ML VIAL IV ONE (09:55)
[2021-06-21] MEDS ORDERED: ALBUMIN HUMAN 12.5 GM/50 ML BAG IV ONE (09:55)
[2021-06-21] MEDS: VANCOMYCIN 1,500 MG in 0.9 % SODIUM CHLORIDE 500 ML IV SCH ×2 (10:29→20:30)
[2021-06-21] MEDS: LOPERAMIDE 2 MG CAPSULE PO PRN ×3 (10:31→17:15)
[2021-06-21] MEDS: ACETAMINOPHEN 325 MG TABLET PO PRN (11:57)
[2021-06-21] MEDS: REMDESIVIR 100 MG in 0.9 % SODIUM CHLORIDE 250 ML IV SCH (13:49)
[2021-06-21] MEDS: HYDROcodone/APAP 5/325MG TABLET PO PRN (15:42)
[2021-06-21] MEDS: INSULIN GLARGINE, HUMAN 1 UNIT/0.01 ML SQ SCH (20:50)
[2021-06-21] MEDS: MUPIROCIN OINT 2% 22GM NARES SCH (21:50)
[2021-06-22] MEDS: 0.9 % SODIUM CHLORIDE 10 ML SYRINGE IV SCH ×6 (03:40→22:10)
[2021-06-22] MEDS: HYDROcodone/APAP 5/325MG TABLET PO PRN (03:50)
[2021-06-22 07:15] LABS: Basophils # (Auto) 0.01 K/mcL (0.00-0.30); Basophils % (Auto) 0.1 % (0.0-2.0); Eosinophils # (Auto) 0.23 K/mcL (0.00-0.70); Eosinophils % (Auto) 2.9 % (0.0-7.0); Hematocrit 32.4 % (34.1-44.9); Hemoglobin 10.5 g/dL (11.2-15.7); Lymphocytes # (Auto) 1.76 K/mcL (1.50-4.80); Mean Cell Volume 87.3 fL (80.0-100.0); Mean Corpuscular HGB Conc 32.4 g/dL (31.0-36.0); Mean Platelet Volume 9.3 fL (7.4-10.4); Monocytes # (Auto) 0.31 K/mcL (0.10-0.90); Monocytes % (Auto) 3.9 % (1.0-12.0); Neutrophils % (Auto) 71.1 % (38.0-78.0); Platelet Count 558 K/mcL (140-440); RBC 3.71 M/mcL (3.59-5.38); Red Cell Distribution Width 12.9 % (11.5-14.5)
[2021-06-22] MEDS ORDERED: ALBUMIN HUMAN 12.5 GM/50 ML BAG IV ONE (07:44)
[2021-06-22] MEDS ORDERED: FUROSEMIDE 40 MG/4 ML VIAL IV ONE (07:44)
--- NOTE | 2021-06-22 07:44 | Internal Med Progress Note ---
SUBJECTIVE Subjective Patient information: Note initiated : 06/22/21 at 7:40 am Service Date, if different from initiated Date: [] Patient: Niya Piper a 36 y/o F admitted on 06/17/21 for covid +, cough, chills, headache, SOB. Chief Complaint: [] Interval history: Interval history: Ms. Piper is a 36 year old female with a history of depression and obesity who says she was diagnosed with COVID-19 at an outside facility on about 06/09/21. She presented to the [facility] ED last week with a cough and fever and was discharged to home. She returned to the ED on the day of admission with shortness of breath and hypoxia. Chest xray showed progression of bilateral pneumonia. Lab work was remarkable for a neutrophil count of 590, lactic acid 2.6, anion gap metabolic acidosis. The patient required 15 L/min oxygen via a non-rebreather mask, respiratory rate is 30-40. When I saw the patient she was proning and was able to speak comfortably in full sentences. She says she feel comfortable on oxygen supplementation while at rest. 06/18: Continues on HHFNC with high FiO2. The patient does not feel dyspnea at rest, desaturates with minimal activity. CRP decreased 10 to 6.9. Chest xray shows stable bilateral pneumonia. Added Atarax prn for anxiety. Encouraged self proning and discussed COVID-19 management. 06/19: Continues on HHFNC high FiO2, 80% but weaned to 70% this morning, hypoxia improves with proning position. Had a fever overnight and new leukocytosis today, added Zosyn and ordered MRSA nasal PCR. Procalcitonin checked but not elevated to suggest bacterial pneumonia. Upgraded to ICU status and discussed with Anaesthesia. D-dimer still elevated, CTA chest ordered. Blood glucose elevated. 06/20 patient on Vapotherm 40 liters per minute and FiO2 anywhere between 55 and 70%. Patient states she feels better and that she feels like she can take a deeper breath. She does desat with movement. Laboratory is improving. Patient is proning. She has a cough productive of yellow sputum. Occasional headache. 06/21 Patient feeling fine. Comfortable on Vapotherm. Desats with movement but recovers. Patient's FiO2 at 70%. Has occasional cough. Shortness of breath she feels is improving. 06/22 Patient still on FiO2 of around 70. Has moments of desaturation. She is doing well with proning. CRP improved from yesterday. She states she feels a little bit better every day. Occasional cough. Review of Systems: denies headache/fever/chills/nausea/vomiting/chest or abdominal pain/diarrhea. Otherwise see above. Constitutional Vitals: Vital Signs Temp Pulse Resp BP Pulse Ox 99.2 F H 97 H 26 H 112/65 90 06/22/21 04:00 06/21/21 22:17 06/22/21 06:00 06/22/21 06:00 06/22/21 06:00 Period Temp Pulse Resp BP Sys/Ordonez Pulse Ox Last 24 Hr 97.8 F-100.2 F 90-110 16-32 100-126/46-76 75-97 Intake and Output 06/21/21 06/22/21 06/22/21 21:59 05:59 13:59 Intake Total 2370 620 Output Total 625 200 0 Balance 1745 420 0 Weight 104.78 kg Intake & Output: Intake & Output 06/21/21 06/22/21 06/22/21 21:59 05:59 13:59 Intake Total 2370 620 Output Total 625 200 0 Balance 1745 420 0 Weight 104.78 kg Intake: Nourishment/Supplement quantity 480 (ml) IV 250 500 Veklury 100 mg In Sodium 250 Chloride 0.9% 250 ml @ 500 mls/ hr IV Q24H [facility] Rx#:[id number] Vancomycin 1,500 mg In Sodium 500 Chloride 0.9% 500 ml @ 333.3 mls/hr IV Q12H [facility] Rx#: [id number] Oral 1640 120 Output: Void Amount 625 200 0 Other: Meal Nourishment/Supplement Percent of Meal Consumed 100% Feeding Ability Independent Urine Appearance Clear Clear Urine Color Dark Yellow Dark Yellow Urine Odor Normal Exam: General: Alert, Awake, No acute Distress, obese Eyes/N/T: EOMI, Head/Neck: neck supple, CV: RRR, No murmurs, Pulm: diminished b/l but improving, nonlabored, no wheezing Abd: soft, nontender, +BS x4 Ext: no clubbing/cyanosis/edema Neuro: Alert, no focal deficits, moves all extremities, Skin: warm/dry OBJ DATA Labs CBC & Chem 7: 06/22/21 05:15 06/22/21 05:40 Labs: Abnormal Lab Results 06/22/21 06/21/21 06/21/21 05:15 05:41 05:40 Hgb 10.5 L Hct 32.4 L Plt Count 558 H Platelet Estimate Potassium Anion Gap Creatinine Glucose Ferritin 162.6 H GGT AST Lactate Dehydrogenase C-Reactive Protein 11.10 H Albumin Globulin Albumin/Globulin Ratio Triglycerides Procalcitonin 06/21/21 06/20/21 06/20/21 05:40 05:38 05:38 Hgb Hct Plt Count Platelet Estimate Potassium 3.2 L Anion Gap Creatinine 0.5 L Glucose Ferritin 165.4 H GGT 140 H AST Lactate Dehydrogenase 475 H C-Reactive Protein Albumin 2.7 L Globulin 3.9 H Albumin/Globulin Ratio 0.7 L Triglycerides Procalcitonin 0.14 H 06/20/21 06/20/21 06/20/21 05:38 05:37 05:37 Hgb 11.1 L Hct Plt Count 533 H Platelet Estimate Potassium Anion Gap Creatinine Glucose Ferritin GGT 155 H AST Lactate Dehydrogenase 516 H C-Reactive Protein 8.30 H Albumin 2.8 L Globulin Albumin/Globulin Ratio 0.8 L Triglycerides Procalcitonin 06/19/21 06/19/21 06/19/21 05:14 05:14 05:13 Hgb Hct Plt Count Platelet Estimate Increased A Potassium Anion Gap 18.0 H Creatinine Glucose 107 H Ferritin GGT 182 H AST 40 H Lactate Dehydrogenase 469 H C-Reactive Protein Albumin 3.1 L Globulin 4.0 H Albumin/Globulin Ratio 0.8 L Triglycerides 172 H Procalcitonin 0.16 H Meds: Medications Acetaminophen (Acetaminophen 325 Mg Tablet) 650 mg PO Q4HP PRN; Protocol PRN Reason: Pain/Fever > 100.4 Last Admin: 06/21/21 11:57 Dose: 650 mg Documented by: Hydrocodone Bitart/Acetaminophen (Hydrocodone/Apap 5/325mg Tablet) 1 tab PO Q4HP PRN; Protocol PRN Reason: Per Pain Protocol Last Admin: 06/22/21 03:50 Dose: 1 tab Documented by: Albuterol/Ipratropium (Ipratropium/Albuterol 3 Ml Ampul.Neb) 3 ml NEB Q12 [facility] Last Admin: 06/21/21 20:14 Dose: 3 ml Documented by: Albuterol/Ipratropium (Ipratropium/Albuterol 3 Ml Ampul.Neb) 3 ml NEB Q4HP PRN PRN Reason: Shortness Of Breath Bupropion HCl (Bupropion 150 Mg Tab.Xl.24h) 150 mg PO DAILY [facility] Last Admin: 06/21/21 08:12 Dose: 150 mg Documented by: Dexamethasone (Dexamethasone 10 Mg/Ml Vial) 6 mg IV DAILY [facility] Stop: 06/27/21 14:49 Last Admin: 06/21/21 08:13 Dose: 6 mg Documented by: Diagnostic Test (Pha) (Accu-Chek 1 Each Strip) 1 each FS ACHS [facility] Last Admin: 06/21/21 20:45 Dose: 1 each Documented by: Enoxaparin Sodium (Enoxaparin 40 Mg/0.4 Ml Syringe) 40 mg SQ BID [facility] Last Admin: 06/21/21 20:30 Dose: 40 mg Documented by: Fluticasone Propionate (Fluticasone Propionate [place].Keaton) 1 spray NS BID PRN PRN Reason: nasal congestion Guaifenesin/Codeine Phosphate (Guaifenesin/Codeine 10 Ml Udc) 10 ml PO Q8HP PRN PRN Reason: Cough Last Admin: 06/21/21 22:09 Dose: 10 ml Documented by: Hydroxyzine HCl (Hydroxyzine 25 Mg Tablet) 50 mg PO TIDP PRN PRN Reason: anxiety Last Admin: 06/21/21 20:30 Dose: 50 mg Documented by: Vancomycin HCl 1,500 mg/ (Sodium Chloride) 500 mls @ 333.3 mls/hr IV Q12H [facility] Last Infusion: 06/21/21 23:30 Dose: Infused Documented by: Insulin Glargine (Insulin Glargine, Human 1 Unit/0.01 Ml) 10 unit SQ HS [facility] Last Admin: 06/21/21 20:50 Dose: 10 units Documented by: Insulin Human Lispro (Insulin Lispro 1 Unit/0.01 Ml Unit) 0 unit SQ ACHS [facility]; Protocol Last Admin: 06/21/21 20:59 Dose: 6 unit Documented by: Lactulose (Lactulose 20 Gm/30 Ml Oral.Ruth) 10 gm PO DAILYP PRN PRN Reason: Constipation Loperamide HCl (Loperamide 2 Mg Capsule) 2 mg PO PRN PRN PRN Reason: Diarrhea Last Admin: 06/21/21 17:15 Dose: 2 mg Documented by: Lorazepam (Lorazepam 2 Mg/Ml Vial) 0.5 mg IV Q6HP PRN PRN Reason: ANXIETY/SEDATION Last Admin: 06/21/21 10:29 Dose: 0.5 mg Documented by: Mupirocin (Mupirocin Oint 2% 22gm) 1 dose NARES BID [facility] Last Admin: 06/21/21 21:50 Dose: 1 dose Documented by: Ondansetron HCl (Ondansetron 4 Mg/2 Ml Vial) 4 mg IV Q4HP PRN; Protocol PRN Reason: Nausea And Vomiting Senna (Sennosides 1 Tablet) 2 tab PO HSP PRN PRN Reason: Constipation Sodium Chloride (0.9 % Sodium Chloride 10 Ml Syringe) 10 ml IV Q8 [facility] Last Admin: 06/22/21 06:19 Dose: Not Given Documented by: Vancomycin HCl (Vancomycin Per Pharmacy) 1 order IV UD [facility]; Protocol A/P Narrative A/P Narrative: A: #Severe COVID-19 pneumonia w/ARDS & MRSA pneumonia co-infection: -afebrile since 06/20 #Acute hypoxic respiratory failure: 2/2 above -no PE on CTA -on vapotherm @45 l/m & fio2 70% #Type 2 diabetes mellitus: A1c 8.7 #Thrombocytosis: #Anion gap metabolic acidosis / lactic acidosis: Resolved #Depression #Obesity: Plan: -Dexamethasone / Remdesivir -Oxygen supplementation wean as able -daily proning and chair position -cont vanco -Lantus and SSI -DVT ppx: Lovenox SQ BID Code status: Director Of Safety Spent With Patient Time: Total time spent is greater than 50% in coordination of care (as documented) at patient's floor/unit and/or counseling patient: QUALITY VTE Deep Vein Thrombosis/Pulmonary Embolism Present on Admission: No
[2021-06-22 08:19] LABS: ALT/SGPT 9 U/L (<40); AST/SGOT 21 U/L (<32); Albumin/Globulin Ratio 0.9 (1.0-2.3); Alkaline Phosphatase 58 U/L (39-117); Bilirubin,Direct < 0.2 mg/dL (0-0.3); Bilirubin,Total 0.4 mg/dL (0.1-1.0); Blood Urea Nitrogen 9 mg/dL (6-20); Calcium 8.8 mg/dL (8.6-10.4); Carbon Dioxide 26 mmol/L (22-30); Chloride 100 mmol/L (96-108); Globulin 3.5 gm/dL (2.2-3.7); Glomerular Filtration Rate 126; Glucose 110 mg/dL (70-105); Lactate Dehydrogenase 471 U/L (135-225); Phosphorous 2.8 mg/dL (2.5-4.5); Triglycerides 104 mg/dL (<150); Uric Acid 4.1 mg/dL (2.5-8.0)
[2021-06-22] MEDS: IPRATROPIUM/ALBUTEROL 3 ML AMPUL.NEB NEB SCH ×2 (08:26→20:24)
[2021-06-22] MEDS: INSULIN LISPRO 1 UNIT/0.01 ML UNIT SQ SCH ×4 (08:30→20:50)
[2021-06-22] MEDS ORDERED: DEXAMETHASONE 10 MG/ML VIAL PO SCH (09:00)
--- NOTE | 2021-06-22 09:42 | XRay Report ---
HISTORY: Follow-up COVID pneumonia FINDINGS: Severe diffuse alveolar infiltrates are present throughout both lungs. There is no pneumothorax or pleural effusion. The heart size is normal. There has been no change from the prior chest CT done on 06/19/21. IMPRESSION: Severe bilateral pneumonia with no change Interpreted and Authenticated by: Jordi Mccarthy 06/22/21
[2021-06-22] MEDS: buPROPion 150 MG TAB.XL.24H PO SCH (09:57)
[2021-06-22] MEDS: MUPIROCIN OINT 2% 22GM NARES SCH ×2 (09:57→20:54)
[2021-06-22] MEDS: ENOXAPARIN 40 MG/0.4 ML SYRINGE SQ SCH ×2 (09:58→22:07)
[2021-06-22] MEDS: VANCOMYCIN 1,500 MG in 0.9 % SODIUM CHLORIDE 500 ML IV SCH ×3 (09:58→17:29)
[2021-06-22] MEDS: DEXAMETHASONE 4 MG TABLET PO SCH (09:59)
[2021-06-22] MEDS: guaiFENesin/CODEINE 10 ML UDC PO PRN ×2 (10:59→19:45)
[2021-06-22] MEDS: LOPERAMIDE 2 MG CAPSULE PO PRN (11:11)
[2021-06-22] MEDS: REMDESIVIR 100 MG in 0.9 % SODIUM CHLORIDE 250 ML IV SCH (11:17)
[2021-06-22] MEDS: ACETAMINOPHEN 325 MG TABLET PO PRN (11:32)
[2021-06-22] MEDS: INSULIN GLARGINE, HUMAN 1 UNIT/0.01 ML SQ SCH (20:50)
[2021-06-22] MEDS: hydrOXYzine 25 MG TABLET PO PRN (20:54)
[2021-06-23] MEDS: 0.9 % SODIUM CHLORIDE 10 ML SYRINGE IV SCH ×5 (01:45→20:30)
[2021-06-23] MEDS: VANCOMYCIN 1,500 MG in 0.9 % SODIUM CHLORIDE 500 ML IV SCH ×3 (01:45→17:09)
[2021-06-23] MEDS ORDERED: FUROSEMIDE 40 MG/4 ML VIAL IV ONE (07:34)
[2021-06-23] MEDS ORDERED: ALBUMIN HUMAN 12.5 GM/50 ML BAG IV ONE (07:34)
--- NOTE | 2021-06-23 07:34 | Internal Med Progress Note ---
SUBJECTIVE Subjective Patient information: Note initiated : 06/23/21 at 7:32 am Service Date, if different from initiated Date: [] Patient: Niya Piper a 36 y/o F admitted on 06/17/21 for covid +, cough, chills, headache, SOB. Chief Complaint: [] Interval history: Interval history: Ms. Piper is a 36 year old female with a history of depression and obesity who says she was diagnosed with COVID-19 at an outside facility on about 06/09/21. She presented to the [facility] ED last week with a cough and fever and was discharged to home. She returned to the ED on the day of admission with shortness of breath and hypoxia. Chest xray showed progression of bilateral pneumonia. Lab work was remarkable for a neutrophil count of 590, lactic acid 2.6, anion gap metabolic acidosis. The patient required 15 L/min oxygen via a non-rebreather mask, respiratory rate is 30-40. When I saw the patient she was proning and was able to speak comfortably in full sentences. She says she feel comfortable on oxygen supplementation while at rest. 06/18: Continues on HHFNC with high FiO2. The patient does not feel dyspnea at rest, desaturates with minimal activity. CRP decreased 10 to 6.9. Chest xray shows stable bilateral pneumonia. Added Atarax prn for anxiety. Encouraged self proning and discussed COVID-19 management. 06/19: Continues on HHFNC high FiO2, 80% but weaned to 70% this morning, hypoxia improves with proning position. Had a fever overnight and new leukocytosis today, added Zosyn and ordered MRSA nasal PCR. Procalcitonin checked but not elevated to suggest bacterial pneumonia. Upgraded to ICU status and discussed with Anaesthesia. D-dimer still elevated, CTA chest ordered. Blood glucose elevated. 06/20 patient on Vapotherm 40 liters per minute and FiO2 anywhere between 55 and 70%. Patient states she feels better and that she feels like she can take a deeper breath. She does desat with movement. Laboratory is improving. Patient is proning. She has a cough productive of yellow sputum. Occasional headache. 06/21 Patient feeling fine. Comfortable on Vapotherm. Desats with movement but recovers. Patient's FiO2 at 70%. Has occasional cough. Shortness of breath she feels is improving. 06/22 Patient still on FiO2 of around 70. Has moments of desaturation. She is doing well with proning. CRP improved from yesterday. She states she feels a little bit better every day. Occasional cough. 06/23 Oxygen requirement still fluctuating. Has been titrated down to 60% but has as high as 85% recently. Currently on 70%. She feels the same today no worse no better. Comfortable on the Vapotherm. Occasional cough. Review of Systems: denies headache/fever/chills/nausea/vomiting/chest or abdominal pain/diarrhea. Otherwise see above. Constitutional Vitals: Vital Signs Temp Pulse Resp BP Pulse Ox 98.0 F 93 H 28 H 114/70 91 06/23/21 04:01 06/22/21 22:30 06/23/21 06:00 06/23/21 06:00 06/23/21 06:00 Period Temp Pulse Resp BP Sys/Ordonez Pulse Ox Last 24 Hr 96.7 F-98.0 F 93-93 18-30 100-136/57-80 70-99 Intake and Output 06/22/21 06/23/21 06/23/21 21:59 05:59 13:59 Intake Total 1460 860 Output Total 2075 350 Balance -615 510 Weight 104.78 kg Intake & Output: Intake & Output 06/22/21 06/23/21 06/23/21 21:59 05:59 13:59 Intake Total 1460 860 Output Total 2075 350 Balance -615 510 Weight 104.78 kg Intake: Nourishment/Supplement quantity 240 (ml) IV 500 500 Vancomycin 1,500 mg In Sodium 500 500 Chloride 0.9% 500 ml @ 333.3 mls/hr IV Q8H COUNT INCLUDES [facility] Rx#:[id number] Oral 720 360 Output: Void Amount 1275 350 Urine/Stool Mix 800 Other: Meal Lunch Percent of Meal Consumed 100% Feeding Ability Independent Urine Appearance Sediment Clear Urine Color Bright Yellow Bright Yellow Urine Odor Normal Normal Exam: General: Alert, Awake, No acute Distress, obese Eyes/N/T: EOMI, Head/Neck: neck supple, CV: RRR, No murmurs, Pulm: mild b/l rhonchi/rales, no wheezing, nonlabored Abd: soft, nontender, +BS x4 Ext: no clubbing/cyanosis/edema Neuro: Alert, no focal deficits, moves all extremities, Skin: warm/dry OBJ DATA Labs CBC & Chem 7: 06/22/21 05:15 06/22/21 05:40 Labs: Abnormal Lab Results 06/22/21 06/22/21 06/21/21 05:40 05:15 05:41 Hgb 10.5 L Hct 32.4 L Plt Count 558 H Potassium Creatinine 0.5 L Glucose 110 H Ferritin GGT 126 H Lactate Dehydrogenase 471 H C-Reactive Protein 8.50 H 11.10 H Albumin 3.0 L Globulin Albumin/Globulin Ratio 0.9 L 06/21/21 06/21/21 06/20/21 05:40 05:40 05:37 Hgb Hct Plt Count Potassium 3.2 L Creatinine 0.5 L Glucose Ferritin 162.6 H GGT 140 H Lactate Dehydrogenase 475 H C-Reactive Protein 8.30 H Albumin 2.7 L Globulin 3.9 H Albumin/Globulin Ratio 0.7 L 06/20/21 05:37 Hgb 11.1 L Hct Plt Count 533 H Potassium Creatinine Glucose Ferritin GGT Lactate Dehydrogenase C-Reactive Protein Albumin Globulin Albumin/Globulin Ratio Meds: Medications Acetaminophen (Acetaminophen 325 Mg Tablet) 650 mg PO Q4HP PRN; Protocol PRN Reason: Pain/Fever > 100.4 Last Admin: 06/22/21 11:32 Dose: 650 mg Documented by: Hydrocodone Bitart/Acetaminophen (Hydrocodone/Apap 5/325mg Tablet) 1 tab PO Q4HP PRN; Protocol PRN Reason: Per Pain Protocol Last Admin: 06/22/21 03:50 Dose: 1 tab Documented by: Albuterol/Ipratropium (Ipratropium/Albuterol 3 Ml Ampul.Neb) 3 ml NEB Q12 [facility] Last Admin: 06/22/21 20:24 Dose: 3 ml Documented by: Albuterol/Ipratropium (Ipratropium/Albuterol 3 Ml Ampul.Neb) 3 ml NEB Q4HP PRN PRN Reason: Shortness Of Breath Bupropion HCl (Bupropion 150 Mg Tab.Xl.24h) 150 mg PO DAILY [facility] Last Admin: 06/22/21 09:57 Dose: 150 mg Documented by: Dexamethasone (Dexamethasone 4 Mg Tablet) 6 mg PO DAILY COUNT [facility]CLUDES [facility] Stop: 06/27/21 14:00 Last Admin: 06/22/21 09:59 Dose: 6 mg Documented by: Diagnostic Test (Pha) (Accu-Chek 1 Each Strip) 1 each FS [facility] Last Admin: 06/22/21 20:30 Dose: 1 each Documented by: Enoxaparin Sodium (Enoxaparin 40 Mg/0.4 Ml Syringe) 40 mg SQ BID COUNT [facility]CLUDES [facility] Last Admin: 06/22/21 22:07 Dose: 40 mg Documented by: Fluticasone Propionate (Fluticasone Propionate [place].Keaton) 1 spray NS BID PRN PRN Reason: nasal congestion Guaifenesin/Codeine Phosphate (Guaifenesin/Codeine 10 Ml Udc) 10 ml PO Q8HP PRN PRN Reason: Cough Last Admin: 06/22/21 19:45 Dose: 10 ml Documented by: Hydroxyzine HCl (Hydroxyzine 25 Mg Tablet) 50 mg PO TIDP PRN PRN Reason: anxiety Last Admin: 06/22/21 20:54 Dose: 50 mg Documented by: Vancomycin HCl 1,500 mg/ (Sodium Chloride) 500 mls @ 333.3 mls/hr IV Q8H COUNT [facility]CLUDES [facility] Last Infusion: 06/23/21 03:30 Dose: Infused Documented by: REMDESIVIR 100 mg/ Sodium (Chloride) 250 mls @ 500 mls/hr IV Q24H COUNT INCLUDES [facility] Stop: 06/23/21 11:29 Last Infusion: 06/22/21 12:00 Dose: Infused Documented by: Insulin Glargine (Insulin Glargine, Human 1 Unit/0.01 Ml) 10 unit SQ [facility] Last Admin: 06/22/21 20:50 Dose: 10 units Documented by: Insulin Human Lispro (Insulin Lispro 1 Unit/0.01 Ml Unit) 0 unit SQ [facility]; Protocol Last Admin: 06/22/21 20:50 Dose: 10 unit Documented by: Lactulose (Lactulose 20 Gm/30 Ml Oral.Ruth) 10 gm PO DAILYP PRN PRN Reason: Constipation Loperamide HCl (Loperamide 2 Mg Capsule) 2 mg PO PRN PRN PRN Reason: Diarrhea Last Admin: 06/22/21 11:11 Dose: 2 mg Documented by: Lorazepam (Lorazepam 2 Mg/Ml Vial) 0.5 mg IV Q6HP PRN PRN Reason: ANXIETY/SEDATION Last Admin: 06/21/21 10:29 Dose: 0.5 mg Documented by: Mupirocin (Mupirocin Oint 2% 22gm) 1 dose NARES BID COUNT INCLUDES [facility] Last Admin: 06/22/21 20:54 Dose: 1 dose Documented by: Ondansetron HCl (Ondansetron 4 Mg/2 Ml Vial) 4 mg IV Q4HP PRN; Protocol PRN Reason: Nausea And Vomiting Senna (Sennosides 1 Tablet) 2 tab PO HSP PRN PRN Reason: Constipation Sodium Chloride (0.9 % Sodium Chloride 10 Ml Syringe) 10 ml IV Q8 COUNT [facility]CLUDES [facility] Last Admin: 06/23/21 03:30 Dose: 10 ml Documented by: Vancomycin HCl (Vancomycin Per Pharmacy) 1 order IV UD [facility]; Protocol A/P Narrative A/P Narrative: A: #Severe COVID-19 pneumonia w/ARDS & MRSA-pneumonia co-infection: -afebrile since 06/20 #Acute hypoxic respiratory failure: 2/2 above -no PE on CTA -on vapotherm @40 l/m & fio2 70% (fluctuates between 60-85%) #Type 2 diabetes mellitus: A1c 8.7 #Thrombocytosis: #Anion gap metabolic acidosis / lactic acidosis: Resolved #Depression #Obesity: Plan: -Dexamethasone / Remdesivir -Oxygen supplementation wean as able -daily proning and chair position -cont vanco -Lantus and SSI -DVT ppx: Lovenox SQ BID 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
[2021-06-23] MEDS: IPRATROPIUM/ALBUTEROL 3 ML AMPUL.NEB NEB SCH (08:13)
[2021-06-23] MEDS: ENOXAPARIN 40 MG/0.4 ML SYRINGE SQ SCH ×2 (08:30→20:58)
[2021-06-23] MEDS: MUPIROCIN OINT 2% 22GM NARES SCH ×2 (08:30→21:17)
[2021-06-23] MEDS: DEXAMETHASONE 4 MG TABLET PO SCH (08:31)
[2021-06-23] MEDS: buPROPion 150 MG TAB.XL.24H PO SCH (08:40)
[2021-06-23] MEDS: INSULIN LISPRO 1 UNIT/0.01 ML UNIT SQ SCH ×4 (09:06→21:18)
[2021-06-23] MEDS: guaiFENesin/CODEINE 10 ML UDC PO PRN ×2 (09:08→20:57)
[2021-06-23] MEDS: REMDESIVIR 100 MG in 0.9 % SODIUM CHLORIDE 250 ML IV SCH (11:00)
[2021-06-23] MEDS: ACETAMINOPHEN 325 MG TABLET PO PRN ×2 (16:00→21:00)
[2021-06-23] MEDS: hydrOXYzine 25 MG TABLET PO PRN (20:57)
[2021-06-23] MEDS: INSULIN GLARGINE, HUMAN 1 UNIT/0.01 ML SQ SCH (21:18)
[2021-06-24] MEDS: VANCOMYCIN 1,500 MG in 0.9 % SODIUM CHLORIDE 500 ML IV SCH ×4 (00:59→21:35)
[2021-06-24] MEDS: 0.9 % SODIUM CHLORIDE 10 ML SYRINGE IV SCH ×4 (01:00→21:36)
[2021-06-24] MEDS: guaiFENesin/CODEINE 10 ML UDC PO PRN ×3 (05:02→21:35)
[2021-06-24] MEDS: ACETAMINOPHEN 325 MG TABLET PO PRN ×3 (05:02→23:26)
[2021-06-24] MEDS: IPRATROPIUM/ALBUTEROL 3 ML AMPUL.NEB NEB SCH ×3 (07:55→21:15)
[2021-06-24] MEDS: INSULIN LISPRO 1 UNIT/0.01 ML UNIT SQ SCH ×4 (08:14→21:36)
--- NOTE | 2021-06-24 08:21 | Internal Med Progress Note ---
SUBJECTIVE Subjective Patient information: Note initiated : 06/24/21 at 8:19 am Service Date, if different from initiated Date: [] Patient: Niya Piper a 36 y/o F admitted on 06/17/21 for covid +, cough, chills, headache, SOB. Chief Complaint: [] Interval history: Interval history: Ms. Piper is a 36 year old female with a history of depression and obesity who says she was diagnosed with COVID-19 at an outside facility on about 06/09/21. She presented to the [facility] ED last week with a cough and fever and was discharged to home. She returned to the ED on the day of admission with shortness of breath and hypoxia. Chest xray showed progression of bilateral pneumonia. Lab work was remarkable for a neutrophil count of 590, lactic acid 2.6, anion gap metabolic acidosis. The patient required 15 L/min oxygen via a non-rebreather mask, respiratory rate is 30-40. When I saw the patient she was proning and was able to speak comfortably in full sentences. She says she feel comfortable on oxygen supplementation while at rest. 06/18: Continues on HHFNC with high FiO2. The patient does not feel dyspnea at rest, desaturates with minimal activity. CRP decreased 10 to 6.9. Chest xray shows stable bilateral pneumonia. Added Atarax prn for anxiety. Encouraged self proning and discussed COVID-19 management. 06/19: Continues on HHFNC high FiO2, 80% but weaned to 70% this morning, hypoxia improves with proning position. Had a fever overnight and new leukocytosis today, added Zosyn and ordered MRSA nasal PCR. Procalcitonin checked but not elevated to suggest bacterial pneumonia. Upgraded to ICU status and discussed with Anaesthesia. D-dimer still elevated, CTA chest ordered. Blood glucose elevated. 06/20 patient on Vapotherm 40 liters per minute and FiO2 anywhere between 55 and 70%. Patient states she feels better and that she feels like she can take a deeper breath. She does desat with movement. Laboratory is improving. Patient is proning. She has a cough productive of yellow sputum. Occasional headache. 06/21 Patient feeling fine. Comfortable on Vapotherm. Desats with movement but recovers. Patient's FiO2 at 70%. Has occasional cough. Shortness of breath she feels is improving. 06/22 Patient still on FiO2 of around 70. Has moments of desaturation. She is doing well with proning. CRP improved from yesterday. She states she feels a little bit better every day. Occasional cough. 06/23 Oxygen requirement still fluctuating. Has been titrated down to 60% but has as high as 85% recently. Currently on 70%. She feels the same today no worse no better. Comfortable on the Vapotherm. Occasional cough. 06/24 Patient fluctuating between 58% FiO2 and 70. Patient states she feels her breathing is a little better today from yesterday. Has occasional cough still. Review of Systems: denies headache/fever/chills/nausea/vomiting/chest or abdominal pain/diarrhea. Otherwise see above. Constitutional Vitals: Vital Signs Temp Pulse Resp BP Pulse Ox 97.1 F 79 21 113/66 95 06/24/21 08:01 06/24/21 08:14 06/24/21 08:01 06/24/21 08:01 06/24/21 08:13 Period Temp Pulse Resp BP Sys/Ordonez Pulse Ox Last 24 Hr 97.1 F-98.6 F 79 15-31 96-131/52-75 84-100 Intake and Output 06/23/21 06/24/21 06/24/21 21:59 05:59 13:59 Intake Total 980 980 Output Total 700 Balance 280 980 Intake & Output: Intake & Output 06/23/21 06/24/21 06/24/21 21:59 05:59 13:59 Intake Total 980 980 Output Total 700 Balance 280 980 Intake: IV 500 500 Vancomycin 1,500 mg In Sodium 500 500 Chloride 0.9% 500 ml @ 333.3 mls/hr IV Q8H [facility] Rx#:[id number] Oral 480 480 Output: Void Amount 700 Other: Meal Dinner Percent of Meal Consumed 100% Urine Appearance Clear Cloudy Urine Color Bright Yellow Bright Yellow Urine Odor Normal Normal # Voids 350 Exam: General: Alert, Awake, No acute Distress, obese Eyes/N/T: EOMI, Head/Neck: neck supple, CV: RRR, No murmurs, Pulm: mild b/l rales, no wheezing, nonlabored Abd: soft, nontender, +BS x4 Ext: no clubbing/cyanosis/edema Neuro: Alert, no focal deficits, moves all extremities, Skin: warm/dry OBJ DATA Labs CBC & Chem 7: 06/22/21 05:15 06/22/21 05:40 Labs: Abnormal Lab Results 06/22/21 06/22/21 05:40 05:15 Hgb 10.5 L Hct 32.4 L Plt Count 558 H Creatinine 0.5 L Glucose 110 H GGT 126 H Lactate Dehydrogenase 471 H C-Reactive Protein 8.50 H Albumin 3.0 L Albumin/Globulin Ratio 0.9 L Meds: Medications Acetaminophen (Acetaminophen 325 Mg Tablet) 650 mg PO Q4HP PRN; Protocol PRN Reason: Pain/Fever > 100.4 Last Admin: 06/24/21 05:02 Dose: 650 mg Documented by: Hydrocodone Bitart/Acetaminophen (Hydrocodone/Apap 5/325mg Tablet) 1 tab PO Q4HP PRN; Protocol PRN Reason: Per Pain Protocol Last Admin: 06/22/21 03:50 Dose: 1 tab Documented by: Albuterol/Ipratropium (Ipratropium/Albuterol 3 Ml Ampul.Neb) 3 ml NEB Q12 [facility] Last Admin: 06/24/21 08:17 Dose: 3 ml Documented by: Albuterol/Ipratropium (Ipratropium/Albuterol 3 Ml Ampul.Neb) 3 ml NEB Q4HP PRN PRN Reason: Shortness Of Breath Bupropion HCl (Bupropion 150 Mg Tab.Xl.24h) 150 mg PO DAILY [facility] Last Admin: 06/23/21 08:40 Dose: 150 mg Documented by: Dexamethasone (Dexamethasone 4 Mg Tablet) 6 mg PO DAILY [facility] Stop: 06/27/21 14:00 Last Admin: 06/23/21 08:31 Dose: 6 mg Documented by: Diagnostic Test (Pha) (Accu-Chek 1 Each Strip) 1 each FS ACHS [facility] Last Admin: 06/24/21 08:14 Dose: 1 each Documented by: Enoxaparin Sodium (Enoxaparin 40 Mg/0.4 Ml Syringe) 40 mg SQ BID [facility] Last Admin: 06/23/21 20:58 Dose: 40 mg Documented by: Fluticasone Propionate (Fluticasone Propionate [place].Keaton) 1 spray NS BID PRN PRN Reason: nasal congestion Guaifenesin/Codeine Phosphate (Guaifenesin/Codeine 10 Ml Udc) 10 ml PO Q8HP PRN PRN Reason: Cough Last Admin: 06/24/21 05:02 Dose: 10 ml Documented by: Hydroxyzine HCl (Hydroxyzine 25 Mg Tablet) 50 mg PO TIDP PRN PRN Reason: anxiety Last Admin: 06/23/21 20:57 Dose: 50 mg Documented by: Vancomycin HCl 1,500 mg/ (Sodium Chloride) 500 mls @ 333.3 mls/hr IV Q8H [facility] Last Infusion: 06/24/21 04:47 Dose: Infused Documented by: Insulin Glargine (Insulin Glargine, Human 1 Unit/0.01 Ml) 10 unit SQ HS [facility] Last Admin: 06/23/21 21:18 Dose: 10 units Documented by: Insulin Human Lispro (Insulin Lispro 1 Unit/0.01 Ml Unit) 0 unit SQ [facility]; Protocol Last Admin: 06/24/21 08:14 Dose: Not Given Documented by: Lactulose (Lactulose 20 Gm/30 Ml Oral.Ruth) 10 gm PO DAILYP PRN PRN Reason: Constipation Loperamide HCl (Loperamide 2 Mg Capsule) 2 mg PO PRN PRN PRN Reason: Diarrhea Last Admin: 06/22/21 11:11 Dose: 2 mg Documented by: Lorazepam (Lorazepam 2 Mg/Ml Vial) 0.5 mg IV Q6HP PRN PRN Reason: ANXIETY/SEDATION Last Admin: 06/21/21 10:29 Dose: 0.5 mg Documented by: Mupirocin (Mupirocin Oint 2% 22gm) 1 dose NARES BID [facility] Last Admin: 06/23/21 21:17 Dose: 1 dose Documented by: Ondansetron HCl (Ondansetron 4 Mg/2 Ml Vial) 4 mg IV Q4HP PRN; Protocol PRN Reason: Nausea And Vomiting Senna (Sennosides 1 Tablet) 2 tab PO HSP PRN PRN Reason: Constipation Sodium Chloride (0.9 % Sodium Chloride 10 Ml Syringe) 10 ml IV Q8 [facility] Last Admin: 06/24/21 05:03 Dose: 10 ml Documented by: Vancomycin HCl (Vancomycin Per Pharmacy) 1 order IV [facility]; Protocol A/P Narrative A/P Narrative: A: #Severe COVID-19 pneumonia w/ARDS & MRSA-pneumonia co-infection: -afebrile since 06/20 #Acute hypoxic respiratory failure: 2/2 above -no PE on CTA -on vapotherm @40 l/m & fio2 70% (fluctuates between 58-75%) #Type 2 diabetes mellitus: A1c 8.7 #Thrombocytosis: #Anion gap metabolic acidosis / lactic acidosis: Resolved #Depression #Obesity: Plan: -Dexamethasone / Remdesivir x6 doses given -Oxygen supplementation wean as able -daily proning and chair position -cont vanco -Lantus and SSI -DVT ppx: Lovenox SQ BID 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
[2021-06-24] MEDS: MUPIROCIN OINT 2% 22GM NARES SCH ×2 (09:26→21:35)
[2021-06-24] MEDS: ENOXAPARIN 40 MG/0.4 ML SYRINGE SQ SCH ×2 (09:28→21:35)
[2021-06-24] MEDS: DEXAMETHASONE 4 MG TABLET PO SCH (09:28)
[2021-06-24] MEDS: buPROPion 150 MG TAB.XL.24H PO SCH (09:53)
[2021-06-24] MEDS ORDERED: FLUTICASONE PROPIONATE SPRAY.NAS NS PRN (11:01)
[2021-06-24] MEDS ORDERED: IOPAMIDOL 100 ML BOTTLE IV ONE (11:01)
[2021-06-24] MEDS ORDERED: IPRATROPIUM/ALBUTEROL 3 ML AMPUL.NEB NEB PRN (11:01)
[2021-06-24] MEDS ORDERED: LOPERAMIDE 2 MG CAPSULE PO PRN (11:01)
[2021-06-24] MEDS ORDERED: SENNOSIDES 1 TABLET PO PRN (11:01)
[2021-06-24] MEDS ORDERED: hydrOXYzine 25 MG TABLET PO PRN (11:01)
[2021-06-24] MEDS ORDERED: ONDANSETRON 4 MG/2 ML VIAL IV PRN (11:01)
[2021-06-24] MEDS ORDERED: LORazepam 2 MG/ML VIAL IV PRN (11:01)
[2021-06-24] MEDS ORDERED: HYDROcodone/APAP 5/325MG TABLET PO PRN (11:01)
[2021-06-24] MEDS ORDERED: LACTULOSE 20 GM/30 ML ORAL.SOL PO PRN (11:01)
[2021-06-24] MEDS ORDERED: VANCOMYCIN PER PHARMACY IV SCH (11:01)
[2021-06-24 13:00] LABS: Basophils # (Auto) 0.03 K/mcL (0.00-0.30); Basophils % (Auto) 0.2 % (0.0-2.0); Eosinophils # (Auto) 0.11 K/mcL (0.00-0.70); Eosinophils % (Auto) 0.8 % (0.0-7.0); Hematocrit 33.6 % (34.1-44.9); Hemoglobin 10.6 g/dL (11.2-15.7); Lymphocytes # (Auto) 2.65 K/mcL (1.50-4.80); Lymphocytes % (Auto) 18.2 % (15.5-49.0); Mean Corpuscular HGB Conc 31.5 g/dL (31.0-36.0); Mean Platelet Volume 9.3 fL (7.4-10.4); Monocytes # (Auto) 0.66 K/mcL (0.10-0.90); Monocytes % (Auto) 4.5 % (1.0-12.0); Neutrophils % (Auto) 76.3 % (38.0-78.0); Platelet Count 641 K/mcL (140-440); RBC 3.82 M/mcL (3.59-5.38); Red Cell Distribution Width 13.1 % (11.5-14.5); WBC 14.5 K/mcL (4.5-11.0)
[2021-06-24 13:20] LABS: Blood Urea Nitrogen 9 mg/dL (6-20); Calcium 9.1 mg/dL (8.6-10.4); Carbon Dioxide 27 mmol/L (22-30); Chloride 101 mmol/L (96-108); Glomerular Filtration Rate 119; Glucose 162 mg/dL (70-105)
[2021-06-24] MEDS ORDERED: POTASSIUM CHLORIDE 20 MEQ TABLET PO ONE (14:45)
[2021-06-24] MEDS: INSULIN GLARGINE, HUMAN 1 UNIT/0.01 ML SQ SCH (21:36)
[2021-06-25] MEDS: VANCOMYCIN 1,500 MG in 0.9 % SODIUM CHLORIDE 500 ML IV SCH ×3 (06:17→21:56)
[2021-06-25] MEDS: 0.9 % SODIUM CHLORIDE 10 ML SYRINGE IV SCH ×3 (06:17→22:02)
--- NOTE | 2021-06-25 06:43 | XRay Report ---
CLINICAL INFORMATION: f/u study covid pna COMPARISON: 06/22/2021 FINDINGS: Cardiac mediastinal silhouette and pulmonary vessels are normal for technique. Diffuse infiltrates throughout both lungs show moderate improvement. No effusion IMPRESSION: Moderate improvement in diffuse bilateral infiltrates with apical sparing Interpreted and Authenticated by: Filipe Goins 06/25/21
[2021-06-25 07:02] LABS: Basophils # (Auto) 0.01 K/mcL (0.00-0.30); Basophils % (Auto) 0.1 % (0.0-2.0); Eosinophils # (Auto) 0.03 K/mcL (0.00-0.70); Eosinophils % (Auto) 0.3 % (0.0-7.0); Hematocrit 34.3 % (34.1-44.9); Hemoglobin 10.5 g/dL (11.2-15.7); Lymphocytes # (Auto) 2.42 K/mcL (1.50-4.80); Lymphocytes % (Auto) 25.2 % (15.5-49.0); Mean Cell Volume 87.9 fL (80.0-100.0); Mean Corpuscular HGB Conc 30.6 g/dL (31.0-36.0); Mean Platelet Volume 9.5 fL (7.4-10.4); Monocytes # (Auto) 0.53 K/mcL (0.10-0.90); Monocytes % (Auto) 5.5 % (1.0-12.0); Neutrophils % (Auto) 68.9 % (38.0-78.0); Platelet Count 622 K/mcL (140-440); WBC 9.6 K/mcL (4.5-11.0)
[2021-06-25] MEDS: INSULIN LISPRO 1 UNIT/0.01 ML UNIT SQ SCH ×4 (07:14→21:33)
[2021-06-25] MEDS: IPRATROPIUM/ALBUTEROL 3 ML AMPUL.NEB NEB SCH ×2 (07:41→19:45)
[2021-06-25 08:04] LABS: ALT/SGPT 22 U/L (<40); AST/SGOT 24 U/L (<32); Albumin 3.1 gm/dL (3.2-5.2); Albumin/Globulin Ratio 0.9 (1.0-2.3); Alkaline Phosphatase 59 U/L (39-117); Bilirubin,Total 0.4 mg/dL (0.1-1.0); Blood Urea Nitrogen 10 mg/dL (6-20); Calcium 8.9 mg/dL (8.6-10.4); Carbon Dioxide 26 mmol/L (22-30); Chloride 102 mmol/L (96-108); Globulin 3.6 gm/dL (2.2-3.7); Glomerular Filtration Rate 126; Glucose 109 mg/dL (70-105)
[2021-06-25] MEDS: DEXAMETHASONE 4 MG TABLET PO SCH (08:36)
[2021-06-25] MEDS: ENOXAPARIN 40 MG/0.4 ML SYRINGE SQ SCH ×2 (08:36→21:32)
[2021-06-25] MEDS: FUROSEMIDE 40 MG TABLET PO SCH (08:36)
[2021-06-25] MEDS: buPROPion 150 MG TAB.XL.24H PO SCH (08:36)
[2021-06-25] MEDS: MUPIROCIN OINT 2% 22GM NARES SCH ×2 (08:36→21:26)
[2021-06-25] MEDS: guaiFENesin/CODEINE 10 ML UDC PO PRN ×2 (10:37→21:38)
--- NOTE | 2021-06-25 11:57 | Internal Med Progress Note ---
SUBJECTIVE Subjective Patient information: Note initiated : 06/25/21 at 11:57 am Service Date, if different from initiated Date: [] Patient: Niya Piper a 36 y/o F admitted on 06/17/21 for covid +, cough, chills, headache, SOB. Chief Complaint: [CoVID pneumonia] Interval history: Ms. Piper is a 36 year old female with a history of depression and obesity who says she was diagnosed with COVID-19 at an outside facility on about 06/09/21. She presented to the [facility] ED last week with a cough and fever and was discharged to home. She returned to the ED on the day of admission with shortness of breath and hypoxia. Chest xray showed progression of bilateral pneumonia. Lab work was remarkable for a neutrophil count of 590, lactic acid 2.6, anion gap metabolic acidosis. The patient required 15 L/min oxygen via a non-rebreather mask, respiratory rate is 30-40. When I saw the patient she was proning and was able to speak comfortably in full sentences. She says she feel comfortable on oxygen supplementation while at rest. 06/18: Continues on HHFNC with high FiO2. The patient does not feel dyspnea at rest, desaturates with minimal activity. CRP decreased 10 to 6.9. Chest xray shows stable bilateral pneumonia. Added Atarax prn for anxiety. Encouraged self proning and discussed COVID-19 management. 06/19: Continues on HHFNC high FiO2, 80% but weaned to 70% this morning, hypoxia improves with proning position. Had a fever overnight and new leukocytosis today, added Zosyn and ordered MRSA nasal PCR. Procalcitonin checked but not elevated to suggest bacterial pneumonia. Upgraded to ICU status and discussed with Anaesthesia. D-dimer still elevated, CTA chest ordered. Blood glucose elevated. 06/20 patient on Vapotherm 40 liters per minute and FiO2 anywhere between 55 and 70%. Patient states she feels better and that she feels like she can take a deeper breath. She does desat with movement. Laboratory is improving. Patient is proning. She has a cough productive of yellow sputum. Occasional headache. 06/21 Patient feeling fine. Comfortable on Vapotherm. Desats with movement but recovers. Patient's FiO2 at 70%. Has occasional cough. Shortness of breath she feels is improving. 06/22 Patient still on FiO2 of around 70. Has moments of desaturation. She is doing well with proning. CRP improved from yesterday. She states she feels a little bit better every day. Occasional cough. 06/23 Oxygen requirement still fluctuating. Has been titrated down to 60% but has as high as 85% recently. Currently on 70%. She feels the same today no worse no better. Comfortable on the Vapotherm. Occasional cough. 06/24 Patient fluctuating between 58% FiO2 and 70. Patient states she feels her breathing is a little better today from yesterday. Has occasional cough still. 07/26: Afebrile. Been on high flow oxygen Vapotherm currently at 25L and FiO2@50%. Improving shortness of breath and nonproductive cough. Denies wheezing. Denies chest pain. Denies fever or chills. Denies general body weakness. Constitutional Vitals: Vital Signs Temp Pulse Resp BP Pulse Ox 36.8 C 91 H 28 H 96/65 94 06/25/21 07:30 06/24/21 21:30 06/25/21 10:01 06/25/21 10:01 06/25/21 11:14 Period Temp Pulse Resp BP Sys/Ordonez Pulse Ox Last 24 Hr 36.1 C-36.8 C 91 20-33 96-130/47-96 89-100 Intake and Output 06/24/21 06/25/21 06/25/21 21:59 05:59 13:59 Intake Total 500 900 860 Output Total 1825 1025 1300 Balance -1325 -125 -440 Weight 105.596 kg Intake & Output: Intake & Output 06/24/21 06/25/21 06/25/21 21:59 05:59 13:59 Intake Total 500 900 860 Output Total 1825 1025 1300 Balance -1325 -125 -440 Weight 105.596 kg Intake: IV 500 500 500 Vancomycin 1,500 mg In Sodium 500 500 500 Chloride 0.9% 500 ml @ 333.3 mls/hr IV Q8H [facility] Rx#:[id number] Oral 400 360 Output: Void Amount 1825 1025 400 Urine/Stool Mix 900 Other: Meal Breakfast Percent of Meal Consumed 100% Urine Appearance Clear Clear Clear Urine Color Bright Yellow Bright Yellow Bright Yellow Stool Size Moderate Stool Color Brown Stool Consistency Soft # Bowel Movements 1 General appearance: cooperative and no acute distress Head Head exam: Present atraumatic and normocephalic Eye Eye exam: Present EOMI and PERRL ENT ENT exam: Present mucous membranes moist, normal exam and normal external ear exam Additional comments: Nasal cannula in place. Neck Neck exam: Present normal inspection; Absent lymphadenopathy, tenderness and thyromegaly Respiratory Respiratory exam: Absent accessory muscle use, respiratory distress and wheezes Cardiovascular Cardiovascular exam: Present normal rate and rhythm; Absent JVD GI/Abdominal GI/Abdominal exam: Present normal bowel sounds and soft; Absent organomegaly and tenderness Extremities Exam Extremities exam: Present full ROM, normal capillary refill and normal inspection; Absent tenderness Neurological Exam Neurological exam: Present alert, CN II-XII intact and oriented X3; Absent motor sensory deficit Psychiatric Psychiatric exam: Present normal affect and normal mood; Absent anxious and depressed Skin Skin exam: Present dry and intact OBJ DATA Labs CBC & Chem 7: 06/25/21 05:07 06/25/21 05:06 Labs: Abnormal Lab Results 06/25/21 06/25/21 06/24/21 05:07 05:06 12:05 WBC Hgb 10.5 L Hct MCHC 30.6 L Plt Count 622 H Absolute Neutrophils Creatinine 0.5 L Glucose 109 H 162 H C-Reactive Protein 2.70 H Albumin 3.1 L Albumin/Globulin Ratio 0.9 L 06/24/21 12:04 WBC 14.5 H Hgb 10.6 L Hct 33.6 L MCHC Plt Count 641 H Absolute Neutrophils 11.09 H Creatinine Glucose C-Reactive Protein Albumin Albumin/Globulin Ratio Meds: Medications Acetaminophen (Acetaminophen 325 Mg Tablet) 650 mg PO Q4HP PRN; Protocol PRN Reason: Pain/Fever > 100.4 Last Admin: 06/24/21 23:26 Dose: 650 mg Documented by: Hydrocodone Bitart/Acetaminophen (Hydrocodone/Apap 5/325mg Tablet) 1 tab PO Q4HP PRN; Protocol PRN Reason: Per Pain Protocol Albuterol/Ipratropium (Ipratropium/Albuterol 3 Ml Ampul.Neb) 3 ml NEB Q12 [facility] Last Admin: 06/25/21 07:41 Dose: 3 ml Documented by: Albuterol/Ipratropium (Ipratropium/Albuterol 3 Ml Ampul.Neb) 3 ml NEB Q4HP PRN PRN Reason: Shortness Of Breath Bupropion HCl (Bupropion 150 Mg Tab.Xl.24h) 150 mg PO DAILY [facility] Last Admin: 06/25/21 08:36 Dose: 150 mg Documented by: Dexamethasone (Dexamethasone 4 Mg Tablet) 6 mg PO DAILY [facility] Stop: 06/27/21 14:00 Last Admin: 06/25/21 08:36 Dose: 6 mg Documented by: Diagnostic Test (Pha) (Accu-Chek 1 Each Strip) 1 each FS ACHS [facility] Last Admin: 06/25/21 07:13 Dose: 1 each Documented by: Enoxaparin Sodium (Enoxaparin 40 Mg/0.4 Ml Syringe) 40 mg SQ BID [facility] Last Admin: 06/25/21 08:36 Dose: 40 mg Documented by: Fluticasone Propionate (Fluticasone Propionate [place]aton) 1 spray NS BIDP PRN PRN Reason: nasal congestion Furosemide (Furosemide 40 Mg Tablet) 40 mg PO DAILY [facility] Last Admin: 06/25/21 08:36 Dose: 40 mg Documented by: Guaifenesin/Codeine Phosphate (Guaifenesin/Codeine 10 Ml Udc) 10 ml PO Q8HP PRN PRN Reason: Cough Last Admin: 06/25/21 10:37 Dose: 10 ml Documented by: Hydroxyzine HCl (Hydroxyzine 25 Mg Tablet) 50 mg PO TIDP PRN PRN Reason: anxiety Last Admin: 06/24/21 14:58 Dose: 50 mg Documented by: Vancomycin HCl 1,500 mg/ (Sodium Chloride) 500 mls @ 333.3 mls/hr IV Q8H [facility] Last Infusion: 06/25/21 09:17 Dose: Infused Documented by: Insulin Glargine (Insulin Glargine, Human 1 Unit/0.01 Ml) 10 unit SQ HS [facility] Last Admin: 06/24/21 21:36 Dose: 10 units Documented by: Insulin Human Lispro (Insulin Lispro 1 Unit/0.01 Ml Unit) 0 unit SQ [facility]; Protocol Last Admin: 06/25/21 07:14 Dose: Not Given Documented by: Lactulose (Lactulose 20 Gm/30 Ml Oral.Ruth) 10 gm PO DAILYP PRN PRN Reason: Constipation Loperamide HCl (Loperamide 2 Mg Capsule) 2 mg PO PRN PRN PRN Reason: Diarrhea Last Admin: 06/25/21 10:37 Dose: 2 mg Documented by: Lorazepam (Lorazepam 2 Mg/Ml Vial) 0.5 mg IV Q6HP PRN PRN Reason: ANXIETY/SEDATION Mupirocin (Mupirocin Oint 2% 22gm) 1 dose NARES BID [facility] Last Admin: 06/25/21 08:36 Dose: 1 dose Documented by: Ondansetron HCl (Ondansetron 4 Mg/2 Ml Vial) 4 mg IV Q4HP PRN; Protocol PRN Reason: Nausea And Vomiting Senna (Sennosides 1 Tablet) 2 tab PO HSP PRN PRN Reason: Constipation Sodium Chloride (0.9 % Sodium Chloride 10 Ml Syringe) 10 ml IV Q8 [facility] Last Admin: 06/25/21 06:17 Dose: 10 ml Documented by: Vancomycin HCl (Vancomycin Per Pharmacy) 1 order IV UD [facility]; Protocol A/P Assessment and plan (1) T2DM (type 2 diabetes mellitus): Status: Acute (2) MRSA pneumonia: Status: Acute (3) Pneumonia due to COVID-19 virus: Status: Acute (4) Depression: Status: Chronic Narrative A/P Narrative: Assessment and Plans: 1. CoVID pneumonia: Stays in inpatient PCU Vapotherm titrate to achieve spo2 >=92% Isolation: airborne and contact Finished 5 day course of Remdesivir Dexamethasone PO Lovenox Lasix Tylenol PRN fever Bronchodilators PRN wheezing cbc w/ auto diff in the morning to trend WBC 2. MRSA pneumonia: Vapotherm titrate to achieve spo2 >=92% Isolation: airborne and contact Tylenol PRN fever Bronchodilators PRN wheezing Continue Vancomycin IV 3. T2DM: HgA1c 8.7 Hold oral hypoglycemics Lantus 10 unit HS [employer] insulin SSI AC HS Accu Chek AC HS Hypoglycemia protocol Diabetic diet 4. Depression: Continue Wellbutrin GI ppx: Not currently indicated DVT ppx: Lovenox Code status: Full Prognosis: guarded Disposition: inpatient PCU Time Spent With Patient Time: Total time spent is greater than 50% in coordination of care (as documented) at patient's floor/unit and/or counseling patient: Total time spent with greater than 50% in coordination of care (as documented) at patient's floor/unit and/or counseling patient:: 25 - 35 minutes QUALITY VTE Deep Vein Thrombosis/Pulmonary Embolism Present on Admission: No
[2021-06-25] MEDS: ACETAMINOPHEN 325 MG TABLET PO PRN ×2 (14:31→23:27)
[2021-06-25] MEDS: INSULIN GLARGINE, HUMAN 1 UNIT/0.01 ML SQ SCH (21:33)
[2021-06-26] MEDS: ACETAMINOPHEN 325 MG TABLET PO PRN ×3 (05:34→21:43)
[2021-06-26] MEDS: VANCOMYCIN 1,500 MG in 0.9 % SODIUM CHLORIDE 500 ML IV SCH ×3 (05:40→21:43)
[2021-06-26] MEDS: 0.9 % SODIUM CHLORIDE 10 ML SYRINGE IV SCH ×3 (05:52→21:45)
[2021-06-26] MEDS: INSULIN LISPRO 1 UNIT/0.01 ML UNIT SQ SCH ×4 (07:28→21:44)
[2021-06-26 07:53] LABS: Basophils # (Auto) 0.05 K/mcL (0.00-0.30); Basophils % (Auto) 0.5 % (0.0-2.0); Eosinophils # (Auto) 0.12 K/mcL (0.00-0.70); Eosinophils % (Auto) 1.2 % (0.0-7.0); Hematocrit 37.5 % (34.1-44.9); Lymphocytes # (Auto) 2.96 K/mcL (1.50-4.80); Lymphocytes % (Auto) 30.4 % (15.5-49.0); Mean Cell Volume 92.8 fL (80.0-100.0); Mean Corpuscular HGB Conc 29.3 g/dL (31.0-36.0); Mean Platelet Volume 9.5 fL (7.4-10.4); Monocytes # (Auto) 0.65 K/mcL (0.10-0.90); Monocytes % (Auto) 6.7 % (1.0-12.0); Neutrophils % (Auto) 61.2 % (38.0-78.0); Platelet Count 600 K/mcL (140-440); RBC 4.04 M/mcL (3.59-5.38); Red Cell Distribution Width 13.2 % (11.5-14.5); WBC 9.8 K/mcL (4.5-11.0)
[2021-06-26 08:16] LABS: ALT/SGPT 34 U/L (<40); AST/SGOT 44 U/L (<32); Albumin 3.1 gm/dL (3.2-5.2); Albumin/Globulin Ratio 0.8 (1.0-2.3); Alkaline Phosphatase 63 U/L (39-117); Bilirubin,Total 0.5 mg/dL (0.1-1.0); Blood Urea Nitrogen 10 mg/dL (6-20); Calcium 9.1 mg/dL (8.6-10.4); Carbon Dioxide 21 mmol/L (22-30); Chloride 103 mmol/L (96-108); Globulin 3.7 gm/dL (2.2-3.7); Glomerular Filtration Rate 119; Glucose 79 mg/dL (70-105)
[2021-06-26] MEDS: IPRATROPIUM/ALBUTEROL 3 ML AMPUL.NEB NEB SCH (08:34)
[2021-06-26] MEDS: FUROSEMIDE 40 MG TABLET PO SCH (08:46)
[2021-06-26] MEDS: MUPIROCIN OINT 2% 22GM NARES SCH ×2 (08:46→21:44)
[2021-06-26] MEDS: DEXAMETHASONE 4 MG TABLET PO SCH (08:46)
[2021-06-26] MEDS: ENOXAPARIN 40 MG/0.4 ML SYRINGE SQ SCH ×2 (08:47→21:45)
[2021-06-26] MEDS: buPROPion 150 MG TAB.XL.24H PO SCH (08:50)
--- NOTE | 2021-06-26 12:33 | Internal Med Progress Note ---
SUBJECTIVE Subjective Patient information: Note initiated : 06/26/21 at 12:30 pm Service Date, if different from initiated Date: [] Patient: Niya Piper a 36 y/o F admitted on 06/17/21 for covid +, cough, chills, headache, SOB. Chief Complaint: [CoVID pneumonia] Interval history: Interval history: Ms. Piper is a 36 year old female with a history of depression and obesity who says she was diagnosed with COVID-19 at an outside facility on about 06/09/21. She presented to the [facility] ED last week with a cough and fever and was discharged to home. She returned to the ED on the day of admission with shortness of breath and hypoxia. Chest xray showed progression of bilateral pneumonia. Lab work was remarkable for a neutrophil count of 590, lactic acid 2.6, anion gap metabolic acidosis. The patient required 15 L/min oxygen via a non-rebreather mask, respiratory rate is 30-40. When I saw the patient she was proning and was able to speak comfortably in full sentences. She says she feel comfortable on oxygen supplementation while at rest. 06/18: Continues on HHFNC with high FiO2. The patient does not feel dyspnea at rest, desaturates with minimal activity. CRP decreased 10 to 6.9. Chest xray shows stable bilateral pneumonia. Added Atarax prn for anxiety. Encouraged self proning and discussed COVID-19 management. 06/19: Continues on HHFNC high FiO2, 80% but weaned to 70% this morning, hypoxia improves with proning position. Had a fever overnight and new leukocytosis today, added Zosyn and ordered MRSA nasal PCR. Procalcitonin checked but not elevated to suggest bacterial pneumonia. Upgraded to ICU status and discussed with Anaesthesia. D-dimer still elevated, CTA chest ordered. Blood glucose elevated. 06/20 patient on Vapotherm 40 liters per minute and FiO2 anywhere between 55 and 70%. Patient states she feels better and that she feels like she can take a deeper breath. She does desat with movement. Laboratory is improving. Patient is proning. She has a cough productive of yellow sputum. Occasional headache. 06/21 Patient feeling fine. Comfortable on Vapotherm. Desats with movement but recovers. Patient's FiO2 at 70%. Has occasional cough. Shortness of breath she feels is improving. 06/22 Patient still on FiO2 of around 70. Has moments of desaturation. She is doing well with proning. CRP improved from yesterday. She states she feels a little bit better every day. Occasional cough. 06/23 Oxygen requirement still fluctuating. Has been titrated down to 60% but has as high as 85% recently. Currently on 70%. She feels the same today no worse no better. Comfortable on the Vapotherm. Occasional cough. 06/24 Patient fluctuating between 58% FiO2 and 70. Patient states she feels her breathing is a little better today from yesterday. Has occasional cough still. 07/26: Afebrile. Been on high flow oxygen Vapotherm currently at 25L and FiO2@50%. Improving shortness of breath and nonproductive cough. Denies wheezing. Denies chest pain. Denies fever or chills. Denies general body weakness. 07/27: Afebrle. Been on high flow oxygen down to 25L overnight and 13L this morning. Improving shortness of breath and nonproductive cough. Denies wheezing. Denies chest pain. Denies fever or chills. Denies general body weakness. Constitutional Vitals: Vital Signs Temp Pulse Resp BP Pulse Ox 36.2 C 76 26 H 112/59 93 06/26/21 08:00 06/26/21 08:30 06/26/21 10:00 06/26/21 10:00 06/26/21 11:00 Period Temp Pulse Resp BP Sys/Ordonez Pulse Ox Last 24 Hr 35.7 C-36.6 C 76-91 18-35 103-119/55-76 91-98 Intake and Output 06/25/21 06/26/21 06/26/21 21:59 05:59 13:59 Intake Total 329 294 9104 Output Total 2096 548 5946 Balance -600 480 100 Weight 106.912 kg Intake & Output: Intake & Output 06/25/21 06/26/21 06/26/21 21:59 05:59 13:59 Intake Total 787 120 6224 Output Total 4710 859 4327 Balance -600 480 100 Weight 106.912 kg Intake: Nourishment/Supplement quantity 240 (ml) IV 500 500 500 Vancomycin 1,500 mg In Sodium 500 500 500 Chloride 0.9% 500 ml @ 333.3 mls/hr IV Q8H [facility] Rx#:[id number] Oral 480 360 Output: Void Amount 3292 [id number] Other: Meal Breakfast Percent of Meal Consumed 100% Nourishment/Supplement name Jose Antonio Urine Appearance Clear Clear Clear Urine Color Pale Dark Yellow Bright Yellow Stool Size Moderate Stool Color Brown Stool Consistency Soft # Bowel Movements 1 General appearance: cooperative and no acute distress Head Head exam: Present atraumatic and normocephalic Eye Eye exam: Present EOMI and PERRL ENT ENT exam: Present mucous membranes moist, normal exam and normal external ear exam Additional comments: High flow oxygen in place Neck Neck exam: Present normal inspection; Absent lymphadenopathy, tenderness and thyromegaly Respiratory Respiratory exam: Present rhonchi; Absent accessory muscle use, respiratory distress and wheezes Cardiovascular Cardiovascular exam: Present normal rate and rhythm; Absent JVD GI/Abdominal GI/Abdominal exam: Present normal bowel sounds and soft; Absent organomegaly and tenderness Extremities Exam Extremities exam: Present full ROM, normal capillary refill and normal inspection; Absent tenderness Neurological Exam Neurological exam: Present alert, CN II-XII intact and oriented X3; Absent motor sensory deficit Psychiatric Psychiatric exam: Present normal affect and normal mood; Absent anxious and depressed Skin Skin exam: Present dry and intact OBJ DATA Labs CBC & Chem 7: 06/26/21 05:48 06/26/21 05:48 Labs: Abnormal Lab Results 06/26/21 06/26/21 06/25/21 05:48 05:48 05:07 WBC Hgb 11.0 L 10.5 L Hct MCHC 29.3 L 30.6 L Plt Count 600 H 622 H Absolute Neutrophils Carbon Dioxide 21 L Creatinine Glucose AST 44 H C-Reactive Protein Albumin 3.1 L Albumin/Globulin Ratio 0.8 L 06/25/21 06/24/21 06/24/21 05:06 12:05 12:04 WBC 14.5 H Hgb 10.6 L Hct 33.6 L MCHC Plt Count 641 H Absolute Neutrophils 11.09 H Carbon Dioxide Creatinine 0.5 L Glucose 109 H 162 H AST C-Reactive Protein 2.70 H Albumin 3.1 L Albumin/Globulin Ratio 0.9 L Meds: Medications Acetaminophen (Acetaminophen 325 Mg Tablet) 650 mg PO Q4HP PRN; Protocol PRN Reason: Pain/Fever > 100.4 Last Admin: 06/26/21 05:34 Dose: 650 mg Documented by: Hydrocodone Bitart/Acetaminophen (Hydrocodone/Apap 5/325mg Tablet) 1 tab PO Q4HP PRN; Protocol PRN Reason: Per Pain Protocol Albuterol/Ipratropium (Ipratropium/Albuterol 3 Ml Ampul.Neb) 3 ml NEB Q4HP PRN PRN Reason: Shortness Of Breath Bupropion HCl (Bupropion 150 Mg Tab.Xl.24h) 150 mg PO DAILY [facility] Last Admin: 06/26/21 08:50 Dose: 150 mg Documented by: Diagnostic Test (Pha) (Accu-Chek 1 Each Strip) 1 each FS ACHS [facility] Last Admin: 06/26/21 11:28 Dose: 1 each Documented by: Enoxaparin Sodium (Enoxaparin 40 Mg/0.4 Ml Syringe) 40 mg SQ BID [facility] Last Admin: 06/26/21 08:47 Dose: 40 mg Documented by: Fluticasone Propionate (Fluticasone Propionate [place].Keaton) 1 spray NS BIDP PRN PRN Reason: nasal congestion Furosemide (Furosemide 40 Mg Tablet) 40 mg PO DAILY [facility] Last Admin: 06/26/21 08:46 Dose: 40 mg Documented by: Guaifenesin/Codeine Phosphate (Guaifenesin/Codeine 10 Ml Udc) 10 ml PO Q8HP PRN PRN Reason: Cough Last Admin: 06/25/21 21:38 Dose: 10 ml Documented by: Hydroxyzine HCl (Hydroxyzine 25 Mg Tablet) 50 mg PO TIDP PRN PRN Reason: anxiety Last Admin: 06/24/21 14:58 Dose: 50 mg Documented by: Vancomycin HCl 1,500 mg/ (Sodium Chloride) 500 mls @ 333.3 mls/hr IV Q8H [facility] Stop: 06/29/21 23:39 Last Infusion: 06/26/21 07:11 Dose: Infused Documented by: Insulin Glargine (Insulin Glargine, Human 1 Unit/0.01 Ml) [address] [facility] Last Admin: 06/25/21 21:33 Dose: 10 units Documented by: Insulin Human Lispro (Insulin Lispro 1 Unit/0.01 Ml Unit) 0 unit SQ [facility]; Protocol Last Admin: 06/26/21 11:27 Dose: 2 unit Documented by: Lactulose (Lactulose 20 Gm/30 Ml Oral.Ruth) 10 gm PO DAILYP PRN PRN Reason: Constipation Loperamide HCl (Loperamide 2 Mg Capsule) 2 mg PO PRN PRN PRN Reason: Diarrhea Last Admin: 06/25/21 10:37 Dose: 2 mg Documented by: Lorazepam (Lorazepam 2 Mg/Ml Vial) 0.5 mg IV Q6HP PRN PRN Reason: ANXIETY/SEDATION Mupirocin (Mupirocin Oint 2% 22gm) 1 dose NARES BID [facility] Last Admin: 06/26/21 08:46 Dose: 1 dose Documented by: Ondansetron HCl (Ondansetron 4 Mg/2 Ml Vial) 4 mg IV Q4HP PRN; Protocol PRN Reason: Nausea And Vomiting Senna (Sennosides 1 Tablet) 2 tab PO HSP PRN PRN Reason: Constipation Sodium Chloride (0.9 % Sodium Chloride 10 Ml Syringe) 10 ml IV Q8 [facility] Last Admin: 06/26/21 05:52 Dose: 10 ml Documented by: Vancomycin HCl (Vancomycin Per Pharmacy) 1 order IV UD [facility]; Protocol A/P Assessment and plan (1) T2DM (type 2 diabetes mellitus): Status: Acute (2) MRSA pneumonia: Status: Acute (3) Pneumonia due to COVID-19 virus: Status: Acute (4) Depression: Status: Chronic Narrative A/P Narrative: Assessment and Plans: 1. CoVID pneumonia: Stays in inpatient PCU High flow oxygen titrate to achieve spo2 >=92% Isolation: airborne and contact Finished 5 day course of Remdesivir Dexamethasone PO Lovenox Lasix Tylenol PRN fever Bronchodilators PRN wheezing cbc w/ auto diff in the morning to trend WBC 2. MRSA pneumonia: Vapotherm titrate to achieve spo2 >=92% Isolation: airborne and contact Tylenol PRN fever Bronchodilators PRN wheezing Continue Vancomycin IV 3. T2DM: HgA1c 8.7 Hold oral hypoglycemics Lantus 10 unit HS Correctional scale insulin SSI AC HS Accu Chek AC HS Hypoglycemia protocol Diabetic diet 4. Depression: Continue Wellbutrin GI ppx: Not currently indicated DVT ppx: Lovenox Code status: Full Prognosis: guarded Disposition: inpatient PCU Time Spent With Patient Time: Total time spent is greater than 50% in coordination of care (as documented) at patient's floor/unit and/or counseling patient: QUALITY VTE Deep Vein Thrombosis/Pulmonary Embolism Present on Admission: No
[2021-06-26] MEDS: guaiFENesin/CODEINE 10 ML UDC PO PRN (21:43)
[2021-06-26] MEDS: INSULIN GLARGINE, HUMAN 1 UNIT/0.01 ML SQ SCH (21:45)
[2021-06-27] MEDS: 0.9 % SODIUM CHLORIDE 10 ML SYRINGE IV SCH ×3 (03:00→20:38)
[2021-06-27] MEDS: ACETAMINOPHEN 325 MG TABLET PO PRN ×2 (04:08→14:44)
[2021-06-27] MEDS: VANCOMYCIN 1,500 MG in 0.9 % SODIUM CHLORIDE 500 ML IV SCH ×3 (06:50→22:30)
[2021-06-27] MEDS: INSULIN LISPRO 1 UNIT/0.01 ML UNIT SQ SCH ×4 (07:05→20:36)
[2021-06-27 07:55] LABS: Basophils # (Auto) 0.04 K/mcL (0.00-0.30); Basophils % (Auto) 0.4 % (0.0-2.0); Eosinophils # (Auto) 0.16 K/mcL (0.00-0.70); Eosinophils % (Auto) 1.5 % (0.0-7.0); Hematocrit 36.4 % (34.1-44.9); Hemoglobin 11.4 g/dL (11.2-15.7); Lymphocytes # (Auto) 2.86 K/mcL (1.50-4.80); Lymphocytes % (Auto) 26.6 % (15.5-49.0); Mean Cell Volume 87.9 fL (80.0-100.0); Mean Corpuscular HGB Conc 31.3 g/dL (31.0-36.0); Monocytes # (Auto) 0.75 K/mcL (0.10-0.90); Neutrophils % (Auto) 64.5 % (38.0-78.0); Platelet Count 650 K/mcL (140-440); RBC 4.14 M/mcL (3.59-5.38); Red Cell Distribution Width 13.1 % (11.5-14.5); WBC 10.8 K/mcL (4.5-11.0)
[2021-06-27] MEDS: ENOXAPARIN 40 MG/0.4 ML SYRINGE SQ SCH ×2 (08:10→20:35)
[2021-06-27] MEDS: FUROSEMIDE 40 MG TABLET PO SCH (08:10)
[2021-06-27] MEDS: buPROPion 150 MG TAB.XL.24H PO SCH (08:10)
[2021-06-27] MEDS: guaiFENesin/CODEINE 10 ML UDC PO PRN (08:26)
[2021-06-27 08:39] LABS: ALT/SGPT 34 U/L (<40); AST/SGOT 24 U/L (<32); Albumin 3.3 gm/dL (3.2-5.2); Albumin/Globulin Ratio 0.9 (1.0-2.3); Alkaline Phosphatase 66 U/L (39-117); Bilirubin,Total 0.5 mg/dL (0.1-1.0); Blood Urea Nitrogen 10 mg/dL (6-20); Calcium 8.9 mg/dL (8.6-10.4); Carbon Dioxide 25 mmol/L (22-30); Chloride 98 mmol/L (96-108); Globulin 3.6 gm/dL (2.2-3.7); Glomerular Filtration Rate 119; Glucose 103 mg/dL (70-105)
--- NOTE | 2021-06-27 10:45 | Internal Med Progress Note ---
SUBJECTIVE Subjective Patient information: Note initiated : 06/27/21 at 10:39 am Service Date, if different from initiated Date: [] Patient: Niya Piper a 36 y/o F admitted on 06/17/21 for covid +, cough, chills, headache, SOB. Chief Complaint: [] Interval history: Interval history: Ms. Piper is a 36 year old female with a history of depression and obesity who says she was diagnosed with COVID-19 at an outside facility on about 06/09/21. She presented to the [facility] ED last week with a cough and fever and was discharged to home. She returned to the ED on the day of admission with shortness of breath and hypoxia. Chest xray showed progression of bilateral pneumonia. Lab work was remarkable for a neutrophil count of 590, lactic acid 2.6, anion gap metabolic acidosis. The patient required 15 L/min oxygen via a non-rebreather mask, respiratory rate is 30-40. When I saw the patient she was proning and was able to speak comfortably in full sentences. She says she feel comfortable on oxygen supplementation while at rest. 06/18: Continues on HHFNC with high FiO2. The patient does not feel dyspnea at rest, desaturates with minimal activity. CRP decreased 10 to 6.9. Chest xray shows stable bilateral pneumonia. Added Atarax prn for anxiety. Encouraged self proning and discussed COVID-19 management. 06/19: Continues on HHFNC high FiO2, 80% but weaned to 70% this morning, hypoxia improves with proning position. Had a fever overnight and new leukocytosis today, added Zosyn and ordered MRSA nasal PCR. Procalcitonin checked but not elevated to suggest bacterial pneumonia. Upgraded to ICU status and discussed with Anaesthesia. D-dimer still elevated, CTA chest ordered. Blood glucose elevated. 06/20 patient on Vapotherm 40 liters per minute and FiO2 anywhere between 55 and 70%. Patient states she feels better and that she feels like she can take a deeper breath. She does desat with movement. Laboratory is improving. Patient is proning. She has a cough productive of yellow sputum. Occasional headache. 06/21 Patient feeling fine. Comfortable on Vapotherm. Desats with movement but recovers. Patient's FiO2 at 70%. Has occasional cough. Shortness of breath she feels is improving. 06/22 Patient still on FiO2 of around 70. Has moments of desaturation. She is doing well with proning. CRP improved from yesterday. She states she feels a little bit better every day. Occasional cough. 06/23 Oxygen requirement still fluctuating. Has been titrated down to 60% but has as high as 85% recently. Currently on 70%. She feels the same today no worse no better. Comfortable on the Vapotherm. Occasional cough. 06/24 Patient fluctuating between 58% FiO2 and 70. Patient states she feels her breathing is a little better today from yesterday. Has occasional cough still. 06/25: Afebrile. Been on high flow oxygen Vapotherm currently at 25L and FiO2@50%. Improving shortness of breath and nonproductive cough. Denies wheezing. Denies chest pain. Denies fever or chills. Denies general body weakness. 06/26: Afebrle. Been on high flow oxygen down to 25L overnight and 13L this morning. Improving shortness of breath and nonproductive cough. Denies wheezing. Denies chest pain. Denies fever or chills. Denies general body weakness. 06/27: Been on high flow oxygen anyway from 8-11L overnight and this morning. Improving shortness of breath and nonproductive cough. Denies wheezing. Denies chest pain. Denies fever or chills. Denies general body weakness. Constitutional Vitals: Vital Signs Temp Pulse Resp BP Pulse Ox 36.3 C 76 29 H 110/98 94 06/27/21 08:01 06/27/21 09:46 06/27/21 10:16 06/27/21 10:16 06/27/21 10:16 Period Temp Pulse Resp BP Sys/Ordonez Pulse Ox Last 24 Hr 36.0 C-36.3 C 76 15-37 102-133/63-98 88-99 Intake and Output 06/26/21 06/27/21 06/27/21 21:59 05:59 13:59 Intake Total 1100 1140 500 Output Total 1300 875 750 Balance -200 265 -250 Weight 103.782 kg Intake & Output: Intake & Output 06/26/21 06/27/21 06/27/21 21:59 05:59 13:59 Intake Total 1100 1140 500 Output Total 1300 875 750 Balance -200 265 -250 Weight 103.782 kg Intake: Nourishment/Supplement quantity 240 (ml) IV 500 500 500 Vancomycin 1,500 mg In Sodium 500 500 500 Chloride 0.9% 500 ml @ 333.3 mls/hr IV Q8H [facility] Rx#:[id number] Oral 360 640 Output: Void Amount 1300 875 750 Other: Meal Dinner Percent of Meal Consumed 100% Nourishment/Supplement name Glucerna Urine Appearance Clear Clear Clear Urine Color Bright Yellow Bright Yellow Bright Yellow Stool Size Moderate Stool Color Brown Stool Consistency Soft # Bowel Movements 1 General appearance: cooperative and no acute distress Head Head exam: Present atraumatic and normocephalic Eye Eye exam: Present EOMI and PERRL ENT ENT exam: Present mucous membranes moist, normal exam and normal external ear exam Additional comments: High flow oxygen in place Neck Neck exam: Present normal inspection; Absent lymphadenopathy, tenderness and thyromegaly Respiratory Respiratory exam: Present rhonchi; Absent accessory muscle use, respiratory distress and wheezes Cardiovascular Cardiovascular exam: Present normal rate and rhythm; Absent JVD GI/Abdominal GI/Abdominal exam: Present normal bowel sounds and soft; Absent organomegaly and tenderness Extremities Exam Extremities exam: Present full ROM, normal capillary refill and normal insp ection; Absent tenderness Neurological Exam Neurological exam: Present alert, CN II-XII intact and oriented X3; Absent motor sensory deficit Psychiatric Psychiatric exam: Present normal affect and normal mood; Absent anxious and depressed Skin Skin exam: Present dry and intact OBJ DATA Labs CBC & Chem 7: 06/27/21 06:05 06/27/21 06:05 Labs: Abnormal Lab Results 06/27/21 06/27/21 06/26/21 06:05 06:05 05:48 WBC Hgb Hct MCHC Plt Count 650 H Absolute Neutrophils Carbon Dioxide 21 L Creatinine Glucose AST 44 H C-Reactive Protein Albumin 3.1 L Albumin/Globulin Ratio 0.9 L 0.8 L 06/26/21 06/25/21 06/25/21 05:48 05:07 05:06 WBC Hgb 11.0 L 10.5 L Hct MCHC 29.3 L 30.6 L Plt Count 600 H 622 H Absolute Neutrophils Carbon Dioxide Creatinine 0.5 L Glucose 109 H AST C-Reactive Protein Albumin 3.1 L Albumin/Globulin Ratio 0.9 L 06/24/21 06/24/21 12:05 12:04 WBC 14.5 H Hgb 10.6 L Hct 33.6 L MCHC Plt Count 641 H Absolute Neutrophils 11.09 H Carbon Dioxide Creatinine Glucose 162 H AST C-Reactive Protein 2.70 H Albumin Albumin/Globulin Ratio Meds: Medications Acetaminophen (Acetaminophen 325 Mg Tablet) 650 mg PO Q4HP PRN; Protocol PRN Reason: Pain/Fever > 100.4 Last Admin: 06/27/21 04:08 Dose: 650 mg Documented by: Hydrocodone Bitart/Acetaminophen (Hydrocodone/Apap 5/325mg Tablet) 1 tab PO Q4HP PRN; Protocol PRN Reason: Per Pain Protocol Albuterol/Ipratropium (Ipratropium/Albuterol 3 Ml Ampul.Neb) 3 ml NEB Q4HP PRN PRN Reason: Shortness Of Breath Bupropion HCl (Bupropion 150 Mg Tab.Xl.24h) 150 mg PO DAILY [facility] Last Admin: 06/27/21 08:10 Dose: 150 mg Documented by: Diagnostic Test (Pha) (Accu-Chek 1 Each Strip) 1 each FS ACHS [facility] Last Admin: 06/27/21 07:04 Dose: 1 each Documented by: Enoxaparin Sodium (Enoxaparin 40 Mg/0.4 Ml Syringe) 40 mg SQ BID [facility] Last Admin: 06/27/21 08:10 Dose: 40 mg Documented by: Fluticasone Propionate (Fluticasone Propionate [place].Keaton) 1 spray NS BIDP PRN PRN Reason: nasal congestion Furosemide (Furosemide 40 Mg Tablet) 40 mg PO DAILY [facility] Last Admin: 06/27/21 08:10 Dose: 40 mg Documented by: Guaifenesin/Codeine Phosphate (Guaifenesin/Codeine 10 Ml Udc) 10 ml PO Q8HP PRN PRN Reason: Cough Last Admin: 06/27/21 08:26 Dose: 10 ml Documented by: Hydroxyzine HCl (Hydroxyzine 25 Mg Tablet) 50 mg PO TIDP PRN PRN Reason: anxiety Last Admin: 06/24/21 14:58 Dose: 50 mg Documented by: Vancomycin HCl 1,500 mg/ (Sodium Chloride) 500 mls @ 333.3 mls/hr IV Q8H [facility] Stop: 06/29/21 23:39 Last Infusion: 06/27/21 09:30 Dose: Infused Documented by: Insulin Glargine (Insulin Glargine, Human 1 Unit/0.01 Ml) 10 unit SQ HS [facility] Last Admin: 06/26/21 21:45 Dose: 10 units Documented by: Insulin Human Lispro (Insulin Lispro 1 Unit/0.01 Ml Unit) 0 unit SQ [facility]; Protocol Last Admin: 06/27/21 07:05 Dose: Not Given Documented by: Lactulose (Lactulose 20 Gm/30 Ml Oral.Ruth) 10 gm PO DAILYP PRN PRN Reason: Constipation Loperamide HCl (Loperamide 2 Mg Capsule) 2 mg PO PRN PRN PRN Reason: Diarrhea Last Admin: 06/25/21 10:37 Dose: 2 mg Documented by: Lorazepam (Lorazepam 2 Mg/Ml Vial) 0.5 mg IV Q6HP PRN PRN Reason: ANXIETY/SEDATION Ondansetron HCl (Ondansetron 4 Mg/2 Ml Vial) 4 mg IV Q4HP PRN; Protocol PRN Reason: Nausea And Vomiting Senna (Sennosides 1 Tablet) 2 tab PO HSP PRN PRN Reason: Constipation Sodium Chloride (0.9 % Sodium Chloride 10 Ml Syringe) 10 ml IV Q8 [facility] Last Admin: 06/27/21 03:00 Dose: 10 ml Documented by: Vancomycin HCl (Vancomycin Per Pharmacy) 1 order IV [facility]; Protocol A/P Assessment and plan (1) T2DM (type 2 diabetes mellitus): Status: Acute (2) MRSA pneumonia: Status: Acute (3) Pneumonia due to COVID-19 virus: Status: Acute (4) Depression: Status: Chronic Narrative A/P Narrative: Assessment and Plans: 1. CoVID pneumonia: Transfer to inpatient med surg with telemetry High flow oxygen titrate to achieve spo2 >=92% Isolation: airborne and contact Finished 5 day course of Remdesivir Finished 10 day course of Dexamethasone Lovenox Lasix Tylenol PRN fever Bronchodilators PRN wheezing cbc w/ auto diff in the morning to trend WBC 2. MRSA pneumonia: Vapotherm titrate to achieve spo2 >=92% Isolation: airborne and contact Tylenol PRN fever Bronchodilators PRN wheezing Continue Vancomycin IV 3. T2DM: HgA1c 8.7 Hold oral hypoglycemics Lantus 10 unit HS Correctional scale insulin SSI AC HS Accu Chek AC HS Hypoglycemia protocol Diabetic diet 4. Depression: Continue Wellbutrin GI ppx: Not currently indicated DVT ppx: Lovenox Code status: Full Prognosis: guarded Disposition: inpatient med surg telemetry Time Spent With Patient Time: Total time spent is greater than 50% in coordination of care (as documented) at patient's floor/unit and/or counseling patient: QUALITY VTE Deep Vein Thrombosis/Pulmonary Embolism Present on Admission: No
[2021-06-27] MEDS ORDERED: HYDROcodone/APAP 5/325MG TABLET PO PRN (11:31)
[2021-06-27] MEDS ORDERED: FLUTICASONE PROPIONATE SPRAY.NAS NS PRN (11:31)
[2021-06-27] MEDS ORDERED: LACTULOSE 20 GM/30 ML ORAL.SOL PO PRN (11:31)
[2021-06-27] MEDS ORDERED: SENNOSIDES 1 TABLET PO PRN (11:31)
[2021-06-27] MEDS ORDERED: ONDANSETRON 4 MG/2 ML VIAL IV PRN (11:31)
[2021-06-27] MEDS ORDERED: LOPERAMIDE 2 MG CAPSULE PO PRN (11:31)
[2021-06-27] MEDS ORDERED: IOPAMIDOL 100 ML BOTTLE IV ONE (11:31)
[2021-06-27] MEDS ORDERED: IPRATROPIUM/ALBUTEROL 3 ML AMPUL.NEB NEB PRN (11:31)
[2021-06-27] MEDS ORDERED: VANCOMYCIN PER PHARMACY IV SCH (11:31)
[2021-06-27] MEDS ORDERED: hydrOXYzine 25 MG TABLET PO PRN (11:31)
[2021-06-27] MEDS: INSULIN GLARGINE, HUMAN 1 UNIT/0.01 ML SQ SCH (20:36)
[2021-06-27] MEDS: LORazepam 2 MG/ML VIAL IV PRN (22:31)
[2021-06-28] MEDS: ACETAMINOPHEN 325 MG TABLET PO PRN ×3 (00:16→20:40)
[2021-06-28 07:15] LABS: Basophils # (Auto) 0.05 K/mcL (0.00-0.30); Basophils % (Auto) 0.5 % (0.0-2.0); Eosinophils # (Auto) 0.46 K/mcL (0.00-0.70); Eosinophils % (Auto) 4.8 % (0.0-7.0); Hematocrit 39.1 % (34.1-44.9); Hemoglobin 12.2 g/dL (11.2-15.7); Lymphocytes # (Auto) 2.72 K/mcL (1.50-4.80); Lymphocytes % (Auto) 28.3 % (15.5-49.0); Mean Cell Volume 89.7 fL (80.0-100.0); Mean Corpuscular HGB Conc 31.2 g/dL (31.0-36.0); Mean Platelet Volume 8.8 fL (7.4-10.4); Monocytes # (Auto) 0.71 K/mcL (0.10-0.90); Monocytes % (Auto) 7.4 % (1.0-12.0); Platelet Count 560 K/mcL (140-440); RBC 4.36 M/mcL (3.59-5.38); Red Cell Distribution Width 13.3 % (11.5-14.5); WBC 9.6 K/mcL (4.5-11.0)
[2021-06-28 07:53] LABS: ALT/SGPT 40 U/L (<40); AST/SGOT 39 U/L (<32); Albumin 3.5 gm/dL (3.2-5.2); Alkaline Phosphatase 70 U/L (39-117); Bilirubin,Total 0.5 mg/dL (0.1-1.0); Blood Urea Nitrogen 9 mg/dL (6-20); Calcium 8.7 mg/dL (8.6-10.4); Carbon Dioxide 23 mmol/L (22-30); Chloride 99 mmol/L (96-108); Globulin 3.4 gm/dL (2.2-3.7); Glomerular Filtration Rate 119; Glucose 96 mg/dL (70-105)
[2021-06-28] MEDS: 0.9 % SODIUM CHLORIDE 10 ML SYRINGE IV SCH ×3 (07:53→20:42)
[2021-06-28] MEDS: VANCOMYCIN 1,500 MG in 0.9 % SODIUM CHLORIDE 500 ML IV SCH ×3 (07:53→23:08)
[2021-06-28] MEDS: INSULIN LISPRO 1 UNIT/0.01 ML UNIT SQ SCH ×4 (07:54→20:39)
[2021-06-28] MEDS: buPROPion 150 MG TAB.XL.24H PO SCH (08:02)
[2021-06-28] MEDS: ENOXAPARIN 40 MG/0.4 ML SYRINGE SQ SCH ×2 (08:03→20:40)
[2021-06-28] MEDS ORDERED: FUROSEMIDE 40 MG TABLET PO SCH (09:00)
--- NOTE | 2021-06-28 09:59 | Internal Med Progress Note ---
SUBJECTIVE Subjective Patient information: Note initiated : 06/28/21 at 9:56 am Service Date, if different from initiated Date: [] Patient: Niya Piper a 36 y/o F admitted on 06/17/21 for covid +, cough, chills, headache, SOB. Chief Complaint: [CoVID pneumonia] Interval history: Interval history: Ms. Piper is a 36 year old female with a history of depression and obesity who says she was diagnosed with COVID-19 at an outside facility on about 06/09/21. She presented to the [facility] ED last week with a cough and fever and was discharged to home. She returned to the ED on the day of admission with shortness of breath and hypoxia. Chest xray showed progression of bilateral pneumonia. Lab work was remarkable for a neutrophil count of 590, lactic acid 2.6, anion gap metabolic acidosis. The patient required 15 L/min oxygen via a non-rebreather mask, respiratory rate is 30-40. When I saw the patient she was proning and was able to speak comfortably in full sentences. She says she feel comfortable on oxygen supplementation while at rest. 06/18: Continues on HHFNC with high FiO2. The patient does not feel dyspnea at rest, desaturates with minimal activity. CRP decreased 10 to 6.9. Chest xray shows stable bilateral pneumonia. Added Atarax prn for anxiety. Encouraged self proning and discussed COVID-19 management. 06/19: Continues on HHFNC high FiO2, 80% but weaned to 70% this morning, hypoxia improves with proning position. Had a fever overnight and new leukocytosis today, added Zosyn and ordered MRSA nasal PCR. Procalcitonin checked but not elevated to suggest bacterial pneumonia. Upgraded to ICU status and discussed with Anaesthesia. D-dimer still elevated, CTA chest ordered. Blood glucose elevated. 06/20 patient on Vapotherm 40 liters per minute and FiO2 anywhere between 55 and 70%. Patient states she feels better and that she feels like she can take a deeper breath. She does desat with movement. Laboratory is improving. Patient is proning. She has a cough productive of yellow sputum. Occasional headache. 06/21 Patient feeling fine. Comfortable on Vapotherm. Desats with movement but recovers. Patient's FiO2 at 70%. Has occasional cough. Shortness of breath she feels is improving. 06/22 Patient still on FiO2 of around 70. Has moments of desaturation. She is doing well with proning. CRP improved from yesterday. She states she feels a little bit better every day. Occasional cough. 06/23 Oxygen requirement still fluctuating. Has been titrated down to 60% but has as high as 85% recently. Currently on 70%. She feels the same today no worse no better. Comfortable on the Vapotherm. Occasional cough. 06/24 Patient fluctuating between 58% FiO2 and 70. Patient states she feels her breathing is a little better today from yesterday. Has occasional cough still. 06/25: Afebrile. Been on high flow oxygen Vapotherm currently at 25L and FiO2@50%. Improving shortness of breath and nonproductive cough. Denies wheezing. Denies chest pain. Denies fever or chills. Denies general body weakness. 06/26: Afebrle. Been on high flow oxygen down to 25L overnight and 13L this morning. Improving shortness of breath and nonproductive cough. Denies wheezing. Denies chest pain. Denies fever or chills. Denies general body weakness. 06/27: Been on high flow oxygen anyway from 8-11L overnight and this morning. Improving shortness of breath and nonproductive cough. Denies wheezing. Denies chest pain. Denies fever or chills. Denies general body weakness. 06/28: Been on high flow oxygen anyway from 8-15L overnight and this morning. Improving shortness of breath and nonproductive cough. Denies wheezing. Denies chest pain. Denies fever or chills. Denies general body weakness. Constitutional Vitals: Vital Signs Temp Pulse Resp BP Pulse Ox 36.5 C 114 H 22 122/67 93 06/28/21 08:12 06/28/21 09:44 06/28/21 08:12 06/28/21 08:12 06/28/21 09:44 Period Temp Pulse Resp BP Sys/Ordonez Pulse Ox Last 24 Hr 36.1 C-36.6 C 94-114 18-36 109-126/65-98 78-98 Intake and Output 06/27/21 06/28/21 06/28/21 21:59 05:59 13:59 Intake Total 980 800 500 Output Total 1500 750 550 Balance -520 50 -50 Weight 105.732 kg Intake & Output: Intake & Output 06/27/21 06/28/21 06/28/21 21:59 05:59 13:59 Intake Total 980 800 500 Output Total 1500 750 550 Balance -520 50 -50 Weight 105.732 kg Intake: IV 500 500 500 Vancomycin 1,500 mg In Sodium 500 500 500 Chloride 0.9% 500 ml @ 333.3 mls/hr IV Q8H [facility] Rx#:[id number] Oral 480 300 Output: Void Amount 1500 750 550 Other: Meal Dinner Percent of Meal Consumed 100% Urine Appearance Clear Clear Clear Urine Color Pale Dark Yellow Pale Urine Odor Normal Normal Normal Stool Size Large Large Stool Color Brown Brown Stool Consistency Soft Soft Loose # Voids 1 # Bowel Movements 1 General appearance: cooperative and no acute distress Head Head exam: Present atraumatic and normocephalic Eye Eye exam: Present EOMI and PERRL ENT ENT exam: Present mucous membranes moist, normal exam and normal external ear exam Additional comments: High flow oxygen in place Neck Neck exam: Present normal inspection; Absent lymphadenopathy, tenderness and thyromegaly Respiratory Respiratory exam: Present rhonchi; Absent accessory muscle use, respiratory distress and wheezes Cardiovascular Cardiovascular exam: Present tachycardia; Absent JVD GI/Abdominal GI/Abdominal exam: Present normal bowel sounds and soft; Absent organomegaly and tenderness Extremities Exam Extremities exam: Present full ROM, normal capillary refill and normal inspection; Absent tenderness Neurological Exam Neurological exam: Present alert, CN II-XII intact and oriented X3; Absent motor sensory deficit Psychiatric Psychiatric exam: Present normal affect and normal mood; Absent anxious and depressed Skin Skin exam: Present dry and intact OBJ DATA Labs CBC & Chem 7: 06/28/21 05:15 06/28/21 05:15 Labs: Abnormal Lab Results 06/28/21 06/28/21 06/27/21 05:15 05:15 06:05 Hgb MCHC Plt Count 560 H Carbon Dioxide AST 39 H ALT 40 H Albumin Albumin/Globulin Ratio 0.9 L 06/27/21 06/26/21 06/26/21 06:05 05:48 05:48 Hgb 11.0 L MCHC 29.3 L Plt Count 650 H 600 H Carbon Dioxide 21 L AST 44 H ALT Albumin 3.1 L Albumin/Globulin Ratio 0.8 L Meds: Medications Acetaminophen (Acetaminophen 325 Mg Tablet) 650 mg PO Q4HP PRN; Protocol PRN Reason: Pain/Fever > 100.4 Last Admin: 06/28/21 08:01 Dose: 650 mg Documented by: Hydrocodone Bitart/Acetaminophen (Hydrocodone/Apap 5/325mg Tablet) 1 tab PO Q4HP PRN; Protocol PRN Reason: Per Pain Protocol Albuterol/Ipratropium (Ipratropium/Albuterol 3 Ml Ampul.Neb) 3 ml NEB Q4HP PRN PRN Reason: Shortness Of Breath Bupropion HCl (Bupropion 150 Mg Tab.Xl.24h) 150 mg PO DAILY [facility] Last Admin: 06/28/21 08:02 Dose: 150 mg Documented by: Diagnostic Test (Pha) (Accu-Chek 1 Each Strip) 1 each FS [facility] Last Admin: 06/28/21 07:52 Dose: 1 each Documented by: Enoxaparin Sodium (Enoxaparin 40 Mg/0.4 Ml Syringe) 40 mg SQ BID [facility] Last Admin: 06/28/21 08:03 Dose: 40 mg Documented by: Fluticasone Propionate (Fluticasone Propionate [place].Keaton) 1 spray NS BIDP PRN PRN Reason: nasal congestion Furosemide (Furosemide 40 Mg Tablet) 40 mg PO DAILY [facility] Last Admin: 06/28/21 08:02 Dose: 40 mg Documented by: Guaifenesin/Codeine Phosphate (Guaifenesin/Codeine 10 Ml Udc) 10 ml PO Q8HP PRN PRN Reason: Cough Hydroxyzine HCl (Hydroxyzine 25 Mg Tablet) 50 mg PO TIDP PRN PRN Reason: anxiety Vancomycin HCl 1,500 mg/ (Sodium Chloride) 500 mls @ 333.3 mls/hr IV Q8H [facility] Stop: 06/29/21 23:39 Last Infusion: 06/28/21 09:40 Dose: Infused Documented by: Insulin Glargine (Insulin Glargine, Human 1 Unit/0.01 Ml) [address] [facility] Last Admin: 06/27/21 20:36 Dose: 10 units Documented by: Insulin Human Lispro (Insulin Lispro 1 Unit/0.01 Ml Unit) 0 unit SQ [facility]; Protocol Last Admin: 06/28/21 07:54 Dose: Not Given Documented by: Lactulose (Lactulose 20 Gm/30 Ml Oral.Ruth) 10 gm PO DAILYP PRN PRN Reason: Constipation Loperamide HCl (Loperamide 2 Mg Capsule) 2 mg PO PRN PRN PRN Reason: Diarrhea Lorazepam (Lorazepam 2 Mg/Ml Vial) 0.5 mg IV Q6HP PRN PRN Reason: ANXIETY/SEDATION Last Admin: 06/27/21 22:31 Dose: 0.5 mg Documented by: Ondansetron HCl (Ondansetron 4 Mg/2 Ml Vial) 4 mg IV Q4HP PRN; Protocol PRN Reason: Nausea And Vomiting Senna (Sennosides 1 Tablet) 2 tab PO HSP PRN PRN Reason: Constipation Sodium Chloride (0.9 % Sodium Chloride 10 Ml Syringe) 10 ml IV Q8 VINCE Last Admin: 06/28/21 07:53 Dose: 10 ml Documented by: Vancomycin HCl (Vancomycin Per Pharmacy) 1 order IV UD [facility]; Protocol A/P Assessment and plan (1) T2DM (type 2 diabetes mellitus): Status: Acute (2) MRSA pneumonia: Status: Acute (3) Pneumonia due to COVID-19 virus: Status: Acute (4) Depression: Status: Chronic Narrative A/P Narrative: Assessment and Plans: 1. CoVID pneumonia: Stays in inpatient med surg with telemetry High flow oxygen titrate to achieve spo2 >=92% Isolation: airborne and contact Finished 5 day course of Remdesivir Finished 10 day course of Dexamethasone Lovenox Lasix Tylenol PRN fever Bronchodilators PRN wheezing cbc w/ auto diff in the morning to trend WBC CT angio chest to rule out PE, abscess, bacterial pneumonia, etc. 2. MRSA pneumonia: Vapotherm titrate to achieve spo2 >=92% Isolation: airborne and contact Tylenol PRN fever Bronchodilators PRN wheezing Continue Vancomycin IV 3. T2DM: HgA1c 8.7 Hold oral hypoglycemics Lantus 10 unit HS Correctional scale insulin SSI AC HS Accu Chek AC HS Hypoglycemia protocol Diabetic diet 4. Depression: Continue Wellbutrin GI ppx: Not currently indicated DVT ppx: Lovenox Code status: Full Prognosis: guarded Disposition: inpatient med surg telemetry Time Spent With Patient Time: Total time spent is greater than 50% in coordination of care (as documented) at patient's floor/unit and/or counseling patient: QUALITY VTE Deep Vein Thrombosis/Pulmonary Embolism Present on Admission: No
[2021-06-28] MEDS ORDERED: IOPAMIDOL 100 ML BOTTLE IV ONE (12:08)
[2021-06-28] MEDS ORDERED: 0.9 % SODIUM CHLORIDE 1,000 ML IV ONE (13:30)
[2021-06-28] MEDS: LORazepam 2 MG/ML VIAL IV PRN ×2 (13:47→20:39)
--- NOTE | 2021-06-28 16:10 | Cat Scan Report ---
CLINICAL INFORMATION: Covid pneumonia. Evaluate for PE COMPARISON: CT pulmonary angiogram 06/19/2021 TECHNIQUE: ml of Isovue-370 were injected intravenously. Using SmartPrep to maximize pulmonary artery opacification, .625mm helical slices were obtained from the lung apices through the lung bases. Following reconstruction, 2.5 mm sagittal, coronal, and axial reformations were processed. The exam was reviewed at mediastinal, lung, and bone windows. The exam was performed using radiation dose optimization techniques including, but not limited to, automated exposure control, adjustment of the mA and/or kV according to patient size and use of iterative reconstruction technique. FINDINGS: Pulmonary parenchymal windows show moderate worsening in diffuse bilateral infiltrates. On the CT over one week ago, these were predominantly groundglass attenuation. Now most of the infiltrates are consolidated. There is sparing of the apical /anterior segments of both upper lobes, anterior right middle lobe and periphery of the lower lobe. There are no effusions Mediastinal windows show the heart is grossly normal in size and configuration. The pulmonary arteries are normal diameter and well-opacified without evidence of embolus. Thoracic aorta is also normal diameter and well-opacified. Borderline enlarged lymph nodes throughout the mediastinum compatible benign reactive adenopathy and are unchanged. Esophagus is grossly normal. The thyroid is unremarkable. Bones and soft tissues of the chest wall are normal. Images through the superior abdomen are unremarkable. IMPRESSION: 1. No evidence of pulmonary embolus. 2. Diffuse bilateral infiltrates now appear consolidated compatible with worsening bilateral Covid pneumonia since the comparison chest CT nine days ago Interpreted and Authenticated by: Filipe Goins 06/28/21
[2021-06-28] MEDS ORDERED: METOPROLOL TARTRATE 5 MG/5 ML VIAL IV PRN (17:19)
[2021-06-28] MEDS: guaiFENesin/CODEINE 10 ML UDC PO PRN (18:59)
[2021-06-28] MEDS ORDERED: LORazepam 2 MG/ML VIAL ONE (20:36)
[2021-06-28] MEDS: INSULIN GLARGINE, HUMAN 1 UNIT/0.01 ML SQ SCH (20:40)
[2021-06-28] MEDS: METOPROLOL TARTRATE 25 MG TABLET PO SCH (20:41)
[2021-06-29] MEDS: 0.9 % SODIUM CHLORIDE 10 ML SYRINGE IV SCH ×3 (05:24→21:40)
[2021-06-29] MEDS: VANCOMYCIN 1,500 MG in 0.9 % SODIUM CHLORIDE 500 ML IV SCH ×3 (07:45→22:58)
[2021-06-29] MEDS: ENOXAPARIN 40 MG/0.4 ML SYRINGE SQ SCH ×2 (07:47→21:38)
[2021-06-29] MEDS: buPROPion 150 MG TAB.XL.24H PO SCH (07:47)
[2021-06-29] MEDS: METOPROLOL TARTRATE 25 MG TABLET PO SCH ×2 (07:48→21:38)
[2021-06-29] MEDS: INSULIN LISPRO 1 UNIT/0.01 ML UNIT SQ SCH ×4 (09:04→21:38)
--- NOTE | 2021-06-29 09:25 | Internal Med Progress Note ---
SUBJECTIVE Subjective Patient information: Note initiated : 06/29/21 at 9:21 am Service Date, if different from initiated Date: [] Patient: Niya Piper a 36 y/o F admitted on 06/17/21 for covid +, cough, chills, headache, SOB. Chief Complaint: [CoVID pneumonia] Interval history: Interval history: Ms. Piper is a 36 year old female with a history of depression and obesity who says she was diagnosed with COVID-19 at an outside facility on about 06/09/21. She presented to the [facility] ED last week with a cough and fever and was discharged to home. She returned to the ED on the day of admission with shortness of breath and hypoxia. Chest xray showed progression of bilateral pneumonia. Lab work was remarkable for a neutrophil count of 590, lactic acid 2.6, anion gap metabolic acidosis. The patient required 15 L/min oxygen via a non-rebreather mask, respiratory rate is 30-40. When I saw the patient she was proning and was able to speak comfortably in full sentences. She says she feel comfortable on oxygen supplementation while at rest. 06/18: Continues on HHFNC with high FiO2. The patient does not feel dyspnea at rest, desaturates with minimal activity. CRP decreased 10 to 6.9. Chest xray shows stable bilateral pneumonia. Added Atarax prn for anxiety. Encouraged self proning and discussed COVID-19 management. 06/19: Continues on HHFNC high FiO2, 80% but weaned to 70% this morning, hypoxia improves with proning position. Had a fever overnight and new leukocytosis today, added Zosyn and ordered MRSA nasal PCR. Procalcitonin checked but not elevated to suggest bacterial pneumonia. Upgraded to ICU status and discussed with Anaesthesia. D-dimer still elevated, CTA chest ordered. Blood glucose elevated. 06/20 patient on Vapotherm 40 liters per minute and FiO2 anywhere between 55 and 70%. Patient states she feels better and that she feels like she can take a deeper breath. She does desat with movement. Laboratory is improving. Patient is proning. She has a cough productive of yellow sputum. Occasional headache. 06/21 Patient feeling fine. Comfortable on Vapotherm. Desats with movement but recovers. Patient's FiO2 at 70%. Has occasional cough. Shortness of breath she feels is improving. 06/22 Patient still on FiO2 of around 70. Has moments of desaturation. She is doing well with proning. CRP improved from yesterday. She states she feels a little bit better every day. Occasional cough. 06/23 Oxygen requirement still fluctuating. Has been titrated down to 60% but has as high as 85% recently. Currently on 70%. She feels the same today no worse no better. Comfortable on the Vapotherm. Occasional cough. 06/24 Patient fluctuating between 58% FiO2 and 70. Patient states she feels her breathing is a little better today from yesterday. Has occasional cough still. 06/25: Afebrile. Been on high flow oxygen Vapotherm currently at 25L and FiO2@50%. Improving shortness of breath and nonproductive cough. Denies wheezing. Denies chest pain. Denies fever or chills. Denies general body weakness. 06/26: Afebrle. Been on high flow oxygen down to 25L overnight and 13L this morning. Improving shortness of breath and nonproductive cough. Denies wheezing. Denies chest pain. Denies fever or chills. Denies general body weakness. 06/27: Been on high flow oxygen anyway from 8-11L overnight and this morning. Improving shortness of breath and nonproductive cough. Denies wheezing. Denies chest pain. Denies fever or chills. Denies general body weakness. 06/28: Been on high flow oxygen anyway from 8-15L overnight and this morning. Improving shortness of breath and nonproductive cough. Denies wheezing. Denies chest pain. Denies fever or chills. Denies general body weakness. 06/29: Been on high flow oxygen 10L overnight and this morning. Heart rate in the 90s to 100s bpm, s/p initiation of metoprolol tartrate. Improving shortness of breath and nonproductive cough. Denies wheezing. Denies chest pain. Denies fever or chills. Denies general body weakness. Constitutional Vitals: Vital Signs Temp Pulse Resp BP Pulse Ox 37.0 C 104 H 27 H 93/61 97 06/29/21 07:36 06/29/21 07:36 06/29/21 07:36 06/29/21 07:36 06/29/21 07:36 Period Temp Pulse Resp BP Sys/Ordonez Pulse Ox Last 24 Hr 36.1 C-37.0 C 87-144 18-47 69-121/40-74 88-98 Intake and Output 06/28/21 06/29/21 06/29/21 21:59 05:59 13:59 Intake Total 2380 500 Output Total 2550 600 525 Balance -170 -100 -525 Weight 104.871 kg Intake & Output: Intake & Output 06/28/21 06/29/21 06/29/21 21:59 05:59 13:59 Intake Total 2380 500 Output Total 2550 600 525 Balance -170 -100 -525 Weight 104.871 kg Intake: IV 1500 500 Sodium Chloride 0.9% 1,000 ml @ 1000 Wide Open IV ONCE ONE Rx#: [id number] Vancomycin 1,500 mg In Sodium 500 500 Chloride 0.9% 500 ml @ 333.3 mls/hr IV Q8H [facility] [place] Rx#:[id number] Oral 880 0 Output: Void Amount 2550 600 525 Other: Meal Dinner Percent of Meal Consumed 75% Feeding Ability Independent Urine Appearance Clear Clear Urine Color Straw Dark Yellow Urine Odor Normal Normal Stool Size Large Stool Color Brown Yellow Stool Consistency Soft Loose # Bowel Movements 1 0 General appearance: cooperative and no acute distress Head Head exam: Present atraumatic and normocephalic Eye Eye exam: Present EOMI and PERRL ENT ENT exam: Present mucous membranes moist, normal exam and normal external ear exam Additional comments: High flow oxygen in place Neck Neck exam: Present normal inspection; Absent lymphadenopathy, tenderness and thyromegaly Respiratory Respiratory exam: Present rhonchi; Absent accessory muscle use, respiratory distress and wheezes Cardiovascular Cardiovascular exam: Present normal rate and rhythm; Absent JVD GI/Abdominal GI/Abdominal exam: Present normal bowel sounds and soft; Absent organomegaly and tenderness Extremities Exam Extremities exam: Present full ROM, normal capillary refill and normal inspection; Absent tenderness Neurological Exam Neurological exam: Present alert, CN II-XII intact and oriented X3; Absent motor sensory deficit Psychiatric Psychiatric exam: Present normal affect and normal mood; Absent anxious and depressed Skin Skin exam: Present dry and intact OBJ DATA Labs CBC & Chem 7: 06/28/21 05:15 06/28/21 05:15 Labs: Abnormal Lab Results 06/28/21 06/28/21 06/27/21 05:15 05:15 06:05 Plt Count 560 H AST 39 H ALT 40 H Albumin/Globulin Ratio 0.9 L 06/27/21 06:05 Plt Count 650 H AST ALT Albumin/Globulin Ratio Meds: Medications Acetaminophen (Acetaminophen 325 Mg Tablet) 650 mg PO Q4HP PRN; Protocol PRN Reason: Pain/Fever > 100.4 Last Admin: 06/28/21 20:40 Dose: 650 mg Documented by: Hydrocodone Bitart/Acetaminophen (Hydrocodone/Apap 5/325mg Tablet) 1 tab PO Q4HP PRN; Protocol PRN Reason: Per Pain Protocol Albuterol/Ipratropium (Ipratropium/Albuterol 3 Ml Ampul.Neb) 3 ml NEB Q4HP PRN PRN Reason: Shortness Of Breath Bupropion HCl (Bupropion 150 Mg Tab.Xl.24h) 150 mg PO DAILY [facility] Last Admin: 06/29/21 07:47 Dose: 150 mg Documented by: Diagnostic Test (Pha) (Accu-Chek 1 Each Strip) 1 each FS ACHS [facility] Last Admin: 06/28/21 20:30 Dose: 1 each Documented by: Enoxaparin Sodium (Enoxaparin 40 Mg/0.4 Ml Syringe) 40 mg SQ BID [facility] Last Admin: 06/29/21 07:47 Dose: 40 mg Documented by: Fluticasone Propionate (Fluticasone Propionate [place].Keaton) 1 spray NS BIDP PRN PRN Reason: nasal congestion Guaifenesin/Codeine Phosphate (Guaifenesin/Codeine 10 Ml Udc) 10 ml PO Q8HP PRN PRN Reason: Cough Last Admin: 06/28/21 18:59 Dose: 10 ml Documented by: Hydroxyzine HCl (Hydroxyzine 25 Mg Tablet) 50 mg PO TIDP PRN PRN Reason: anxiety Vancomycin HCl 1,500 mg/ (Sodium Chloride) 500 mls @ 333.3 mls/hr IV Q8H [facility] [place] Stop: 06/29/21 23:39 Last Admin: 06/29/21 07:45 Dose: 333 mls/hr Documented by: Insulin Glargine (Insulin Glargine, Human 1 Unit/0.01 Ml) 10 unit SQ HS [facility] Last Admin: 06/28/21 20:40 Dose: 10 units Documented by: Insulin Human Lispro (Insulin Lispro 1 Unit/0.01 Ml Unit) 0 unit SQ ACHS [facility] [place]; Protocol Last Admin: 06/29/21 09:04 Dose: Not Given Documented by: Lactulose (Lactulose 20 Gm/30 Ml Oral.Ruth) 10 gm PO DAILYP PRN PRN Reason: Constipation Loperamide HCl (Loperamide 2 Mg Capsule) 2 mg PO PRN PRN PRN Reason: Diarrhea Lorazepam (Lorazepam 2 Mg/Ml Vial) 0.5 mg IV Q4HP PRN PRN Reason: ANXIETY/SEDATION Last Admin: 06/28/21 20:39 Dose: 0.5 mg Documented by: Metoprolol Tartrate (Metoprolol Tartrate 5 Mg/5 Ml Vial) 5 mg IV Q2HP PRN PRN Reason: Tachyarrhythmias Last Admin: 06/28/21 18:59 Dose: 5 mg Documented by: Metoprolol Tartrate (Metoprolol Tartrate 25 Mg Tablet) 25 mg PO BID [facility] Last Admin: 06/29/21 07:48 Dose: 25 mg Documented by: Ondansetron HCl (Ondansetron 4 Mg/2 Ml Vial) 4 mg IV Q4HP PRN; Protocol PRN Reason: Nausea And Vomiting Senna (Sennosides 1 Tablet) 2 tab PO HSP PRN PRN Reason: Constipation Sodium Chloride (0.9 % Sodium Chloride 10 Ml Syringe) 10 ml IV Q8 [facility] Last Admin: 06/29/21 05:24 Dose: 10 ml Documented by: Vancomycin HCl (Vancomycin Per Pharmacy) 1 order IV UD [facility]; Protocol A/P Assessment and plan (1) T2DM (type 2 diabetes mellitus): Status: Acute (2) MRSA pneumonia: Status: Acute (3) Pneumonia due to COVID-19 virus: Status: Acute (4) Depression: Status: Chronic Narrative A/P Narrative: Assessment and Plans: 1. CoVID pneumonia: Stays in inpatient med surg with telemetry High flow oxygen titrate to achieve spo2 >=92% Isolation: airborne and contact Finished 5 day course of Remdesivir Finished 10 day course of Dexamethasone Lovenox Lasix Tylenol PRN fever Bronchodilators PRN wheezing cbc w/ auto diff in the morning to trend WBC CT angio chest to rule out PE, abscess, bacterial pneumonia, etc. 2. MRSA pneumonia: Vapotherm titrate to achieve spo2 >=92% Isolation: airborne and contact Tylenol PRN fever Bronchodilators PRN wheezing Continue Vancomycin IV for total of 10 days 3. T2DM: HgA1c 8.7 Hold oral hypoglycemics Lantus 10 unit HS Correctional scale insulin SSI AC HS Accu Chek AC HS Hypoglycemia protocol Diabetic diet 4. Depression: Continue Wellbutrin GI ppx: Not currently indicated DVT ppx: Lovenox Code status: Full Prognosis: guarded Disposition: inpatient med surg telemetry Time Spent With Patient Time: Total time spent is greater than 50% in coordination of care (as documented) at patient's floor/unit and/or counseling patient: QUALITY VTE Deep Vein Thrombosis/Pulmonary Embolism Present on Admission: No
[2021-06-29 10:07] LABS: Basophils # (Auto) 0.04 K/mcL (0.00-0.30); Basophils % (Auto) 0.5 % (0.0-2.0); Eosinophils # (Auto) 0.41 K/mcL (0.00-0.70); Eosinophils % (Auto) 4.7 % (0.0-7.0); Hematocrit 40.7 % (34.1-44.9); Lymphocytes # (Auto) 1.55 K/mcL (1.50-4.80); Lymphocytes % (Auto) 17.6 % (15.5-49.0); Mean Cell Volume 87.5 fL (80.0-100.0); Mean Corpuscular HGB Conc 31.9 g/dL (31.0-36.0); Mean Platelet Volume 9.1 fL (7.4-10.4); Monocytes # (Auto) 0.74 K/mcL (0.10-0.90); Monocytes % (Auto) 8.4 % (1.0-12.0); Neutrophils % (Auto) 68.8 % (38.0-78.0); Platelet Count 562 K/mcL (140-440); RBC 4.65 M/mcL (3.59-5.38); Red Cell Distribution Width 13.3 % (11.5-14.5); WBC 8.8 K/mcL (4.5-11.0)
[2021-06-29 10:17] LABS: ALT/SGPT 36 U/L (<40); AST/SGOT 29 U/L (<32); Albumin 3.5 gm/dL (3.2-5.2); Alkaline Phosphatase 80 U/L (39-117); Bilirubin,Total 0.8 mg/dL (0.1-1.0); Blood Urea Nitrogen 6 mg/dL (6-20); Calcium 9.3 mg/dL (8.6-10.4); Carbon Dioxide 23 mmol/L (22-30); Chloride 97 mmol/L (96-108); Globulin 3.6 gm/dL (2.2-3.7); Glomerular Filtration Rate 119; Glucose 131 mg/dL (70-105)
[2021-06-29] MEDS: ACETAMINOPHEN 325 MG TABLET PO PRN ×2 (14:29→21:46)
[2021-06-29] MEDS: guaiFENesin/CODEINE 10 ML UDC PO PRN ×2 (14:29→19:16)
[2021-06-29] MEDS: INSULIN GLARGINE, HUMAN 1 UNIT/0.01 ML SQ SCH (21:38)
[2021-06-29] MEDS: LORazepam 2 MG/ML VIAL IV PRN (22:59)
[2021-06-30] MEDS: 0.9 % SODIUM CHLORIDE 10 ML SYRINGE IV SCH ×3 (06:14→20:59)
[2021-06-30] MEDS: INSULIN LISPRO 1 UNIT/0.01 ML UNIT SQ SCH ×4 (07:00→20:59)
[2021-06-30 07:20] LABS: Basophils # (Auto) 0.02 K/mcL (0.00-0.30); Basophils % (Auto) 0.3 % (0.0-2.0); Eosinophils # (Auto) 0.34 K/mcL (0.00-0.70); Eosinophils % (Auto) 4.3 % (0.0-7.0); Hematocrit 39.5 % (34.1-44.9); Lymphocytes # (Auto) 1.05 K/mcL (1.50-4.80); Lymphocytes % (Auto) 13.2 % (15.5-49.0); Mean Cell Volume 91.2 fL (80.0-100.0); Mean Corpuscular HGB Conc 30.4 g/dL (31.0-36.0); Mean Platelet Volume 8.6 fL (7.4-10.4); Monocytes # (Auto) 0.71 K/mcL (0.10-0.90); Monocytes % (Auto) 8.9 % (1.0-12.0); Neutrophils % (Auto) 73.3 % (38.0-78.0); Platelet Count 411 K/mcL (140-440); RBC 4.33 M/mcL (3.59-5.38); Red Cell Distribution Width 13.5 % (11.5-14.5)
[2021-06-30 09:00] LABS: ALT/SGPT 30 U/L (<40); AST/SGOT 29 U/L (<32); Albumin 3.3 gm/dL (3.2-5.2); Albumin/Globulin Ratio 0.9 (1.0-2.3); Alkaline Phosphatase 76 U/L (39-117); Bilirubin,Total 0.7 mg/dL (0.1-1.0); Blood Urea Nitrogen 6 mg/dL (6-20); Carbon Dioxide 19 mmol/L (22-30); Chloride 99 mmol/L (96-108); Globulin 3.6 gm/dL (2.2-3.7); Glomerular Filtration Rate 119; Glucose 141 mg/dL (70-105); Thyroid Stimulating Hormone 2.28 uIU/mL (0.27-5.01)
[2021-06-30] MEDS: ACETAMINOPHEN 325 MG TABLET PO PRN ×2 (10:28→20:58)
[2021-06-30] MEDS: ENOXAPARIN 40 MG/0.4 ML SYRINGE SQ SCH ×2 (10:28→20:59)
[2021-06-30] MEDS: buPROPion 150 MG TAB.XL.24H PO SCH (10:28)
[2021-06-30] MEDS: METOPROLOL TARTRATE 25 MG TABLET PO SCH ×2 (10:28→20:57)
--- NOTE | 2021-06-30 11:23 | Internal Med Progress Note ---
SUBJECTIVE Subjective Patient information: Note initiated : 06/30/21 at 11:21 am Service Date, if different from initiated Date: [] Patient: Niya Piper a 36 y/o F admitted on 06/17/21 for covid +, cough, chills, headache, SOB. Chief Complaint: [CoVID pneumonia] Interval history: Interval history: Ms. Piper is a 36 year old female with a history of depression and obesity who says she was diagnosed with COVID-19 at an outside facility on about 06/09/21. She presented to the [facility] ED last week with a cough and fever and was discharged to home. She returned to the ED on the day of admission with shortness of breath and hypoxia. Chest xray showed progression of bilateral pneumonia. Lab work was remarkable for a neutrophil count of 590, lactic acid 2.6, anion gap metabolic acidosis. The patient required 15 L/min oxygen via a non-rebreather mask, respiratory rate is 30-40. When I saw the patient she was proning and was able to speak comfortably in full sentences. She says she feel comfortable on oxygen supplementation while at rest. 06/18: Continues on HHFNC with high FiO2. The patient does not feel dyspnea at rest, desaturates with minimal activity. CRP decreased 10 to 6.9. Chest xray shows stable bilateral pneumonia. Added Atarax prn for anxiety. Encouraged self proning and discussed COVID-19 management. 06/19: Continues on HHFNC high FiO2, 80% but weaned to 70% this morning, hypoxia improves with proning position. Had a fever overnight and new leukocytosis today, added Zosyn and ordered MRSA nasal PCR. Procalcitonin checked but not elevated to suggest bacterial pneumonia. Upgraded to ICU status and discussed with Anaesthesia. D-dimer still elevated, CTA chest ordered. Blood glucose elevated. 06/20 patient on Vapotherm 40 liters per minute and FiO2 anywhere between 55 and 70%. Patient states she feels better and that she feels like she can take a deeper breath. She does desat with movement. Laboratory is improving. Patient is proning. She has a cough productive of yellow sputum. Occasional headache. 06/21 Patient feeling fine. Comfortable on Vapotherm. Desats with movement but recovers. Patient's FiO2 at 70%. Has occasional cough. Shortness of breath she feels is improving. 06/22 Patient still on FiO2 of around 70. Has moments of desaturation. She is doing well with proning. CRP improved from yesterday. She states she feels a little bit better every day. Occasional cough. 06/23 Oxygen requirement still fluctuating. Has been titrated down to 60% but has as high as 85% recently. Currently on 70%. She feels the same today no worse no better. Comfortable on the Vapotherm. Occasional cough. 06/24 Patient fluctuating between 58% FiO2 and 70. Patient states she feels her breathing is a little better today from yesterday. Has occasional cough still. 06/25: Afebrile. Been on high flow oxygen Vapotherm currently at 25L and FiO2@50%. Improving shortness of breath and nonproductive cough. Denies wheezing. Denies chest pain. Denies fever or chills. Denies general body weakness. 06/26: Afebrle. Been on high flow oxygen down to 25L overnight and 13L this morning. Improving shortness of breath and nonproductive cough. Denies wheezing. Denies chest pain. Denies fever or chills. Denies general body weakness. 06/27: Been on high flow oxygen anyway from 8-11L overnight and this morning. Imp roving shortness of breath and nonproductive cough. Denies wheezing. Denies chest pain. Denies fever or chills. Denies general body weakness. 06/28: Been on high flow oxygen anyway from 8-15L overnight and this morning. Improving shortness of breath and nonproductive cough. Denies wheezing. Denies c hest pain. Denies fever or chills. Denies general body weakness. 06/29: Been on high flow oxygen 10L overnight and this morning. Heart rate in the 90s to 100s bpm, s/p initiation of metoprolol tartrate. Improving shortness of breath and nonproductive cough. Denies wheezing. Denies chest pain. Denies fever or chills. Denies general body weakness. 06/29: Been on high flow oxygen 9L/min overnight and this morning. Heart rate in the 100s to 120s bpm. Improving shortness of breath and nonproductive cough. Denies wheezing. Denies chest pain. Denies fever or chills. Denies general body weakness. Constitutional Vitals: Vital Signs Temp Pulse Resp BP Pulse Ox 36.7 C 122 H 26 H 108/70 91 06/30/21 08:26 06/30/21 08:26 06/30/21 08:26 06/30/21 08:26 06/30/21 08:26 Period Temp Pulse Resp BP Sys/Ordonez Pulse Ox Last 24 Hr 36.5 C-37.6 C 99-135 20-30 94-130/42-93 87-95 Intake and Output 06/29/21 06/30/21 06/30/21 21:59 05:59 13:59 Intake Total 1320 1700 480 Output Total 650 1450 1200 Balance 670 250 -720 Weight 104.689 kg Intake & Output: Intake & Output 06/29/21 06/30/21 06/30/21 21:59 05:59 13:59 Intake Total 1320 1700 480 Output Total 650 1450 1200 Balance 670 250 -720 Weight 104.689 kg Intake: IV 500 500 Vancomycin 1,500 mg In Sodium 500 500 Chloride 0.9% 500 ml @ 333.3 mls/hr IV Q8H [facility] Rx#:[id number] Oral 820 1200 480 Output: Void Amount 650 1450 1200 Other: Meal Dinner Breakfast Percent of Meal Consumed 100% 100% Feeding Ability Independent Urine Appearance Clear Clear Clear Urine Color Straw Pale Bright Yellow Urine Odor Normal Normal Stool Consistency Soft Loose General appearance: cooperative and no acute distress Head Head exam: Present atraumatic and normocephalic Eye Eye exam: Present EOMI and PERRL ENT ENT exam: Present mucous membranes moist, normal exam and normal external ear exam Additional comments: High flow oxygen in place Neck Neck exam: Present normal inspection; Absent lymphadenopathy, tenderness and thyromegaly Respiratory Respiratory exam: Present rhonchi; Absent accessory muscle use, respiratory distress and wheezes Cardiovascular Cardiovascular exam: Present tachycardia; Absent JVD GI/Abdominal GI/Abdominal exam: Present normal bowel sounds and soft; Absent organomegaly and tenderness Extremities Exam Extremities exam: Present full ROM, normal capillary refill and normal inspection; Absent tenderness Neurological Exam Neurological exam: Present alert, CN II-XII intact and oriented X3; Absent motor sensory deficit Psychiatric Psychiatric exam: Present normal affect and normal mood; Absent anxious and depressed Skin Skin exam: Present dry and intact OBJ DATA Labs CBC & Chem 7: 06/30/21 06:10 06/30/21 06:10 Labs: Abnormal Lab Results 06/30/21 06/30/21 06/29/21 06:10 06:10 06:30 MCHC 30.4 L Plt Count Lymph % (Auto) 13.2 L Lymph # (Auto) 1.05 L Carbon Dioxide 19 L Glucose 141 H 131 H AST ALT Albumin/Globulin Ratio 0.9 L 06/29/21 06/28/21 06/28/21 06:30 05:15 05:15 MCHC Plt Count 562 H 560 H Lymph % (Auto) Lymph # (Auto) Carbon Dioxide Glucose AST 39 H ALT 40 H Albumin/Globulin Ratio Meds: Medications Acetaminophen (Acetaminophen 325 Mg Tablet) 650 mg PO Q4HP PRN; Protocol PRN Reason: Pain/Fever > 100.4 Last Admin: 06/30/21 10:28 Dose: 650 mg Documented by: Hydrocodone Bitart/Acetaminophen (Hydrocodone/Apap 5/325mg Tablet) 1 tab PO Q4HP PRN; Protocol PRN Reason: Per Pain Protocol Albuterol/Ipratropium (Ipratropium/Albuterol 3 Ml Ampul.Neb) 3 ml NEB Q4HP PRN PRN Reason: Shortness Of Breath Bupropion HCl (Bupropion 150 Mg Tab.Xl.24h) 150 mg PO DAILY [facility] Last Admin: 06/30/21 10:28 Dose: 150 mg Documented by: Diagnostic Test (Pha) (Accu-Chek 1 Each Strip) 1 each FS ACHS [facility] Last Admin: 06/30/21 07:00 Dose: 1 each Documented by: Enoxaparin Sodium (Enoxaparin 40 Mg/0.4 Ml Syringe) 40 mg SQ BID [facility] Last Admin: 06/30/21 10:28 Dose: 40 mg Documented by: Fluticasone Propionate (Fluticasone Propionate [place].Keaton) 1 spray NS BIDP PRN PRN Reason: nasal congestion Guaifenesin/Codeine Phosphate (Guaifenesin/Codeine 10 Ml Udc) 10 ml PO Q8HP PRN PRN Reason: Cough Last Admin: 06/29/21 19:16 Dose: 10 ml Documented by: Hydroxyzine HCl (Hydroxyzine 25 Mg Tablet) 50 mg PO TIDP PRN PRN Reason: anxiety Insulin Glargine (Insulin Glargine, Human 1 Unit/0.01 Ml) 10 unit SQ HS [facility] Last Admin: 06/29/21 21:38 Dose: 10 units Documented by: Insulin Human Lispro (Insulin Lispro 1 Unit/0.01 Ml Unit) 0 unit SQ [facility]; Protocol Last Admin: 06/30/21 07:00 Dose: Not Given Documented by: Lactulose (Lactulose 20 Gm/30 Ml Oral.Ruth) 10 gm PO DAILYP PRN PRN Reason: Constipation Loperamide HCl (Loperamide 2 Mg Capsule) 2 mg PO PRN PRN PRN Reason: Diarrhea Lorazepam (Lorazepam 2 Mg/Ml Vial) 0.5 mg IV Q4HP PRN PRN Reason: ANXIETY/SEDATION Last Admin: 06/29/21 22:59 Dose: 0.5 mg Documented by: Metoprolol Tartrate (Metoprolol Tartrate 5 Mg/5 Ml Vial) 5 mg IV Q2HP PRN PRN Reason: Tachyarrhythmias Last Admin: 06/28/21 18:59 Dose: 5 mg Documented by: Metoprolol Tartrate (Metoprolol Tartrate 25 Mg Tablet) 25 mg PO BID [facility] Last Admin: 06/30/21 10:28 Dose: 25 mg Documented by: Ondansetron HCl (Ondansetron 4 Mg/2 Ml Vial) 4 mg IV Q4HP PRN; Protocol PRN Reason: Nausea And Vomiting Senna (Sennosides 1 Tablet) 2 tab PO HSP PRN PRN Reason: Constipation Sodium Chloride (0.9 % Sodium Chloride 10 Ml Syringe) 10 ml IV Q8 [facility] Last Admin: 06/30/21 06:14 Dose: Not Given Documented by: A/P Assessment and plan (1) T2DM (type 2 diabetes mellitus): Status: Acute (2) MRSA pneumonia: Status: Acute (3) Pneumonia due to COVID-19 virus: Status: Acute (4) Depression: Status: Chronic (5) Sinus tachycardia: Status: Acute Narrative A/P Narrative: Assessment and Plans: 1. CoVID pneumonia: Stays in inpatient med surg with telemetry High flow oxygen titrate to achieve spo2 >=92% Isolation: airborne and contact Finished 5 day course of Remdesivir Finished 10 day course of Dexamethasone Lovenox Lasix Tylenol PRN fever Bronchodilators PRN wheezing cbc w/ auto diff in the morning to trend WBC CT angio chest to rule out PE, abscess, bacterial pneumonia, etc. 2. MRSA pneumonia: Vapotherm titrate to achieve spo2 >=92% Isolation: airborne and contact Tylenol PRN fever Bronchodilators PRN wheezing Continue Vancomycin IV for total of 10 days 3. T2DM: HgA1c 8.7 Hold oral hypoglycemics Lantus 10 unit HS Correctional scale insulin SSI AC HS Accu Chek AC HS Hypoglycemia protocol Diabetic diet 4. Depression: Continue Wellbutrin 5. Sinus tachycardia: d/c any diuretics Ativan as needed to address anxiety CT chest angiogram ruled out pulmonary embolissm Metoprolol tartrate 25mg PO BID GI ppx: Not currently indicated DVT ppx: Lovenox Code status: Full Prognosis: guarded Disposition: inpatient med surg telemetry Time Spent With Patient Time: Total time spent is greater than 50% in coordination of care (as documented) at patient's floor/unit and/or counseling patient: QUALITY VTE Deep Vein Thrombosis/Pulmonary Embolism Present on Admission: No
[2021-06-30] MEDS: guaiFENesin/CODEINE 10 ML UDC PO PRN (17:57)
[2021-06-30] MEDS: INSULIN GLARGINE, HUMAN 1 UNIT/0.01 ML SQ SCH (20:59)
[2021-07-01] MEDS: guaiFENesin/CODEINE 10 ML UDC PO PRN ×3 (02:48→22:04)
[2021-07-01 06:47] LABS: Basophils # (Auto) 0.03 K/mcL (0.00-0.30); Basophils % (Auto) 0.4 % (0.0-2.0); Eosinophils # (Auto) 0.47 K/mcL (0.00-0.70); Eosinophils % (Auto) 6.2 % (0.0-7.0); Hematocrit 37.7 % (34.1-44.9); Hemoglobin 11.9 g/dL (11.2-15.7); Lymphocytes % (Auto) 28.8 % (15.5-49.0); Mean Cell Volume 88.3 fL (80.0-100.0); Mean Corpuscular HGB Conc 31.6 g/dL (31.0-36.0); Mean Platelet Volume 9.4 fL (7.4-10.4); Monocytes # (Auto) 0.87 K/mcL (0.10-0.90); Monocytes % (Auto) 11.4 % (1.0-12.0); Neutrophils % (Auto) 53.2 % (38.0-78.0); Platelet Count 336 K/mcL (140-440); RBC 4.27 M/mcL (3.59-5.38); Red Cell Distribution Width 13.5 % (11.5-14.5); WBC 7.6 K/mcL (4.5-11.0)
--- NOTE | 2021-07-01 07:33 | Internal Med Progress Note ---
SUBJECTIVE Subjective Patient information: Note initiated : 07/01/21 at 7:30 am Service Date, if different from initiated Date: [] Patient: Niya Piper a 36 y/o F admitted on 06/17/21 for covid +, cough, chills, headache, SOB. Chief Complaint: [CoVID] Interval history: Interval history: Ms. Piper is a 36 year old female with a history of depression and obesity who says she was diagnosed with COVID-19 at an outside facility on about 06/09/21. She presented to the [facility] ED last week with a cough and fever and was discharged to home. She returned to the ED on the day of admission with shortness of breath and hypoxia. Chest xray showed progression of bilateral pneumonia. Lab work was remarkable for a neutrophil count of 590, lactic acid 2.6, anion gap metabolic acidosis. The patient required 15 L/min oxygen via a non-rebreather mask, respiratory rate is 30-40. When I saw the patient she was proning and was able to speak comfortably in full sentences. She says she feel comfortable on oxygen supplementation while at rest. 06/18: Continues on HHFNC with high FiO2. The patient does not feel dyspnea at rest, desaturates with minimal activity. CRP decreased 10 to 6.9. Chest xray shows stable bilateral pneumonia. Added Atarax prn for anxiety. Encouraged self proning and discussed COVID-19 management. 06/19: Continues on HHFNC high FiO2, 80% but weaned to 70% this morning, hypoxia improves with proning position. Had a fever overnight and new leukocytosis today, added Zosyn and ordered MRSA nasal PCR. Procalcitonin checked but not elevated to suggest bacterial pneumonia. Upgraded to ICU status and discussed with Anaesthesia. D-dimer still elevated, CTA chest ordered. Blood glucose elevated. 06/20 patient on Vapotherm 40 liters per minute and FiO2 anywhere between 55 and 70%. Patient states she feels better and that she feels like she can take a deeper breath. She does desat with movement. Laboratory is improving. Patient is proning. She has a cough productive of yellow sputum. Occasional headache. 06/21 Patient feeling fine. Comfortable on Vapotherm. Desats with movement but recovers. Patient's FiO2 at 70%. Has occasional cough. Shortness of breath she feels is improving. 06/22 Patient still on FiO2 of around 70. Has moments of desaturation. She is doing well with proning. CRP improved from yesterday. She states she feels a little bit better every day. Occasional cough. 06/23 Oxygen requirement still fluctuating. Has been titrated down to 60% but has as high as 85% recently. Currently on 70%. She feels the same today no worse no better. Comfortable on the Vapotherm. Occasional cough. 06/24 Patient fluctuating between 58% FiO2 and 70. Patient states she feels her breathing is a little better today from yesterday. Has occasional cough still. 06/25: Afebrile. Been on high flow oxygen Vapotherm currently at 25L and FiO2@50%. Improving shortness of breath and nonproductive cough. Denies wheezing. Denies chest pain. Denies fever or chills. Denies general body weakness. 06/26: Afebrle. Been on high flow oxygen down to 25L overnight and 13L this morning. Improving shortness of breath and nonproductive cough. Denies wheezing. Denies chest pain. Denies fever or chills. Denies general body weakness. 06/27: Been on high flow oxygen anyway from 8-11L overnight and this morning. Improving shortness of breath and nonproductive cough. Denies wheezing. Denies chest pain. Denies fever or chills. Denies general body weakness. 06/28: Been on high flow oxygen anyway from 8-15L overnight and this morning. Improving shortness of breath and nonproductive cough. Denies wheezing. Denies chest pain. Denies fever or chills. Denies general body weakness. 06/29: Been on high flow oxygen 10L overnight and this morning. Heart rate in the 90s to 100s bpm, s/p initiation of metoprolol tartrate. Improving shortness of breath and nonproductive cough. Denies wheezing. Denies chest pain. Denies fever or chills. Denies general body weakness. 06/29: Been on high flow oxygen 9L/min overnight and this morning. Heart rate in the 100s to 120s bpm. Improving shortness of breath and nonproductive cough. Denies wheezing. Denies chest pain. Denies fever or chills. Denies general body weakness. 06/29: Been on high flow oxygen 5L/min overnight and this morning at rest and 10L/min while ambulates. Heart rate in the 90s to 100s bpm. Improving shortness of breath and nonproductive cough. Denies wheezing. Denies chest pain. Denies fever or chills. Denies general body weakness. Constitutional Vitals: Vital Signs Temp Pulse Resp BP Pulse Ox 36.3 C 91 H 26 H 96/54 94 07/01/21 04:26 07/01/21 04:26 07/01/21 04:26 07/01/21 04:26 07/01/21 04:26 Period Temp Pulse Resp BP Sys/Ordonez Pulse Ox Last 24 Hr 35.6 C-37.2 C 87-124 14-36 84-109/43-70 77-98 Intake and Output 06/30/21 07/01/21 07/01/21 21:59 05:59 13:59 Intake Total 1760 400 Output Total 950 Balance 810 400 Weight 104.236 kg Intake & Output: Intake & Output 06/30/21 07/01/21 07/01/21 21:59 05:59 13:59 Intake Total 1760 400 Output Total 950 Balance 810 400 Weight 104.236 kg Intake: Oral 1760 400 Output: Void Amount 950 Other: Meal Dinner Percent of Meal Consumed 100% Feeding Ability Independent Urine Appearance Clear Urine Color Bright Yellow Stool Size Moderate Stool Color Brown Stool Consistency Soft Formed # Voids 1 General appearance: cooperative and no acute distress Head Head exam: Present atraumatic and normocephalic Eye Eye exam: Present EOMI and PERRL ENT ENT exam: Present mucous membranes moist, normal exam and normal external ear exam Additional comments: Nasal cannula in place Neck Neck exam: Present normal inspection; Absent lymphadenopathy, tenderness and thyromegaly Respiratory Respiratory exam: Present rhonchi; Absent accessory muscle use, respiratory distress and wheezes Cardiovascular Cardiovascular exam: Present normal rate and rhythm; Absent JVD GI/Abdominal GI/Abdominal exam: Present normal bowel sounds and soft; Absent organomegaly and tenderness Extremities Exam Extremities exam: Present full ROM, normal capillary refill and normal inspection; Absent tenderness Neurological Exam Neurological exam: Present alert, CN II-XII intact and oriented X3; Absent motor sensory deficit Psychiatric Psychiatric exam: Present normal affect and normal mood; Absent anxious and depressed Skin Skin exam: Present dry and intact OBJ DATA Labs CBC & Chem 7: 07/01/21 05:04 06/30/21 06:10 Labs: Abnormal Lab Results 06/30/21 06/30/21 06/29/21 06:10 06:10 06:30 MCHC 30.4 L Plt Count Lymph % (Auto) 13.2 L Lymph # (Auto) 1.05 L Carbon Dioxide 19 L Glucose 141 H 131 H AST ALT Albumin/Globulin Ratio 0.9 L 06/29/21 06/28/21 06:30 05:15 MCHC Plt Count 562 H Lymph % (Auto) Lymph # (Auto) Carbon Dioxide Glucose AST 39 H ALT 40 H Albumin/Globulin Ratio Meds: Medications Acetaminophen (Acetaminophen 325 Mg Tablet) 650 mg PO Q4HP PRN; Protocol PRN Reason: Pain/Fever > 100.4 Last Admin: 06/30/21 20:58 Dose: 650 mg Documented by: Hydrocodone Bitart/Acetaminophen (Hydrocodone/Apap 5/325mg Tablet) 1 tab PO Q4HP PRN; Protocol PRN Reason: Per Pain Protocol Albuterol/Ipratropium (Ipratropium/Albuterol 3 Ml Ampul.Neb) 3 ml NEB Q4HP PRN PRN Reason: Shortness Of Breath Bupropion HCl (Bupropion 150 Mg Tab.Xl.24h) 150 mg PO DAILY [facility] Last Admin: 06/30/21 10:28 Dose: 150 mg Documented by: Diagnostic Test (Pha) (Accu-Chek 1 Each Strip) 1 each FS ACHS [facility] Last Admin: 06/30/21 20:41 Dose: 1 each Documented by: Enoxaparin Sodium (Enoxaparin 40 Mg/0.4 Ml Syringe) 40 mg SQ BID [facility] Last Admin: 06/30/21 20:59 Dose: 40 mg Documented by: Fluticasone Propionate (Fluticasone Propionate [place].Keaton) 1 spray NS BIDP PRN PRN Reason: nasal congestion Guaifenesin/Codeine Phosphate (Guaifenesin/Codeine 10 Ml Udc) 10 ml PO Q8HP PRN PRN Reason: Cough Last Admin: 07/01/21 02:48 Dose: 10 ml Documented by: Hydroxyzine HCl (Hydroxyzine 25 Mg Tablet) 50 mg PO TIDP PRN PRN Reason: anxiety Insulin Glargine (Insulin Glargine, Human 1 Unit/0.01 Ml) 10 unit SQ HS [facility] Last Admin: 06/30/21 20:59 Dose: 10 units Documented by: Insulin Human Lispro (Insulin Lispro 1 Unit/0.01 Ml Unit) 0 unit SQ [facility]; Protocol Last Admin: 06/30/21 20:59 Dose: 6 units Documented by: Lactulose (Lactulose 20 Gm/30 Ml Oral.Ruth) 10 gm PO DAILYP PRN PRN Reason: Constipation Loperamide HCl (Loperamide 2 Mg Capsule) 2 mg PO PRN PRN PRN Reason: Diarrhea Lorazepam (Lorazepam 2 Mg/Ml Vial) 0.5 mg IV Q4HP PRN PRN Reason: ANXIETY/SEDATION Last Admin: 06/29/21 22:59 Dose: 0.5 mg Documented by: Metoprolol Tartrate (Metoprolol Tartrate 5 Mg/5 Ml Vial) 5 mg IV Q2HP PRN PRN Reason: Tachyarrhythmias Last Admin: 06/28/21 18:59 Dose: 5 mg Documented by: Metoprolol Tartrate (Metoprolol Tartrate 25 Mg Tablet) 25 mg PO BID [facility] Last Admin: 06/30/21 20:57 Dose: 25 mg Documented by: Ondansetron HCl (Ondansetron 4 Mg/2 Ml Vial) 4 mg IV Q4HP PRN; Protocol PRN Reason: Nausea And Vomiting Senna (Sennosides 1 Tablet) 2 tab PO HSP PRN PRN Reason: Constipation Sodium Chloride (0.9 % Sodium Chloride 10 Ml Syringe) 10 ml IV Q8 [facility] Last Admin: 06/30/21 20:59 Dose: 10 ml Documented by: A/P Assessment and plan (1) T2DM (type 2 diabetes mellitus): Status: Acute (2) MRSA pneumonia: Status: Acute (3) Pneumonia due to COVID-19 virus: Status: Acute (4) Depression: Status: Chronic (5) Sinus tachycardia: Status: Acute Narrative A/P Narrative: Assessment and Plans: 1. CoVID pneumonia: Stays in inpatient med surg with telemetry High flow oxygen titrate to achieve spo2 >=92% Isolation: airborne and contact Finished 5 day course of Remdesivir Finished 10 day course of Dexamethasone Lovenox Lasix Tylenol PRN fever Bronchodilators PRN wheezing cbc w/ auto diff in the morning to trend WBC CT angio chest to rule out PE, abscess, bacterial pneumonia, etc. 2. MRSA pneumonia: Vapotherm titrate to achieve spo2 >=92% Isolation: airborne and contact Tylenol PRN fever Bronchodilators PRN wheezing Finished Vancomycin IV 10 days therapy 3. T2DM: HgA1c 8.7 Hold oral hypoglycemics Lantus 10 unit HS [employer]al scale insulin SSI AC HS Accu Chek AC HS Hypoglycemia protocol Diabetic diet 4. Depression: Continue Wellbutrin 5. Sinus tachycardia: d/c any diuretics Ativan as needed to address anxiety CT chest angiogram ruled out pulmonary embolissm Metoprolol tartrate 25mg PO BID GI ppx: Not currently indicated DVT ppx: Lovenox Code status: Full Prognosis: stable Disposition: inpatient med surg telemetry Time Spent With Patient Time: Total time spent is greater than 50% in coordination of care (as documented) at patient's floor/unit and/or counseling patient: QUALITY VTE Deep Vein Thrombosis/Pulmonary Embolism Present on Admission: No
[2021-07-01 07:42] LABS: ALT/SGPT 29 U/L (<40); AST/SGOT 24 U/L (<32); Albumin 3.4 gm/dL (3.2-5.2); Albumin/Globulin Ratio 0.9 (1.0-2.3); Alkaline Phosphatase 77 U/L (39-117); Bilirubin,Total 0.4 mg/dL (0.1-1.0); Blood Urea Nitrogen 7 mg/dL (6-20); Calcium 9.1 mg/dL (8.6-10.4); Carbon Dioxide 20 mmol/L (22-30); Chloride 101 mmol/L (96-108); Globulin 3.6 gm/dL (2.2-3.7); Glomerular Filtration Rate 119; Glucose 150 mg/dL (70-105)
[2021-07-01] MEDS: ENOXAPARIN 40 MG/0.4 ML SYRINGE SQ SCH ×2 (09:15→22:04)
[2021-07-01] MEDS: buPROPion 150 MG TAB.XL.24H PO SCH (09:16)
[2021-07-01] MEDS: METOPROLOL TARTRATE 25 MG TABLET PO SCH ×2 (09:16→22:04)
[2021-07-01] MEDS: INSULIN LISPRO 1 UNIT/0.01 ML UNIT SQ SCH ×4 (09:16→22:05)
[2021-07-01] MEDS: 0.9 % SODIUM CHLORIDE 10 ML SYRINGE IV SCH ×3 (09:16→22:05)
--- NOTE | 2021-07-01 12:57 | Internal Med Progress Note ---
SUBJECTIVE Subjective Patient information: Note initiated : 07/01/21 at 12:52 pm Service Date, if different from initiated Date: [] Patient: Niya Piper a 36 y/o F admitted on 06/17/21 for covid +, cough, chills, headache, SOB. Chief Complaint: [] Interval history: Interval history: Ms. Piper is a 36 year old female with a history of depressi on and obesity who says she was diagnosed with COVID-19 at an outside facility on about 06/09/21. She presented to the [facility] ED last week with a cough and fever and was discharged to home. She returned to the ED on the day of admission with shortness of breath and hypoxia. Chest xray showed progression of bilateral pneumonia. Lab work was remarkable for a neutrophil count of 590, lactic acid 2.6, anion gap metabolic acidosis. The patient required 15 L/min oxygen via a non-rebreather mask, respiratory rate is 30-40. When I saw the patient she was proning and was able to speak comfortably in full sentences. She says she feel comfortable on oxygen supplementation while at rest. 06/18: Continues on HHFNC with high FiO2. The patient does not feel dyspnea at rest, desaturates with minimal activity. CRP decreased 10 to 6.9. Chest xray shows stable bilateral pneumonia. Added Atarax prn for anxiety. Encouraged self proning and discussed COVID-19 management. 06/19: Continues on HHFNC high FiO2, 80% but weaned to 70% this morning, hypoxia improves with proning position. Had a fever overnight and new leukocytosis today, added Zosyn and ordered MRSA nasal PCR. Procalcitonin checked but not elevated to suggest bacterial pneumonia. Upgraded to ICU status and discussed with Anaesthesia. D-dimer still elevated, CTA chest ordered. Blood glucose elevated. 06/20 patient on Vapotherm 40 liters per minute and FiO2 anywhere between 55 and 70%. Patient states she feels better and that she feels like she can take a deeper breath. She does desat with movement. Laboratory is improving. Patient is pro maximino. She has a cough productive of yellow sputum. Occasional headache. 06/21 Patient feeling fine. Comfortable on Vapotherm. Desats with movement but recovers. Patient's FiO2 at 70%. Has occasional cough. Shortness of breath she feels is improving. 06/22 Patient still on FiO2 of around 70. Has moments of desaturation. She is doing well with proning. CRP improved from yesterday. She states she feels a little bit better every day. Occasional cough. 06/23 Oxygen requirement still fluctuating. Has been titrated down to 60% but has as high as 85% recently. Currently on 70%. She feels the same today no worse no better. Comfortable on the Vapotherm. Occasional cough. 06/24 Patient fluctuating between 58% FiO2 and 70. Patient states she feels her breathing is a little better today from yesterday. Has occasional cough still. 06/25: Afebrile. Been on high flow oxygen Vapotherm currently at 25L and FiO2@50%. Improving shortness of breath and nonproductive cough. Denies wheezing. Denies chest pain. Denies fever or chills. Denies general body weakness. 06/26: Afebrle. Been on high flow oxygen down to 25L overnight and 13L this morning. Improving shortness of breath and nonproductive cough. Denies wheezing. Denies chest pain. Denies fever or chills. Denies general body weakness. 06/27: Been on high flow oxygen anyway from 8-11L overnight and this morning. Improving shortness of breath and nonproductive cough. Denies wheezing. Denies chest pain. Denies fever or chills. Denies general body weakness. 06/28: Been on high flow oxygen anyway from 8-15L overnight and this morning. Improving shortness of breath and nonproductive cough. Denies wheezing. Denies chest pain. Denies fever or chills. Denies general body weakness. 06/29: Been on high flow oxygen 10L overnight and this morning. Heart rate in the 90s to 100s bpm, s/p initiation of metoprolol tartrate. Improving shortness of breath and nonproductive cough. Denies wheezing. Denies chest pain. Denies fever or chills. Denies general body weakness. 06/30: Been on high flow oxygen 9L/min overnight and this morning. Heart rate in the 100s to 120s bpm. Improving shortness of breath and nonproductive cough. Denies wheezing. Denies chest pain. Denies fever or chills. Denies general body weakness. 07/01: Been on high flow oxygen 5L/min overnight and this morning at rest and 10L/min while ambulates. Heart rate in the 90s to 100s bpm. Improving shortness of breath and nonproductive cough. Denies wheezing. Denies chest pain. Denies fever or chills. Denies general body weakness. 07/02 Review of Systems: denies headache/fever/chills/nausea/vomiting/chest or abdominal pain/diarrhea. Otherwise see above. Constitutional Vitals: Vital Signs Temp Pulse Resp BP Pulse Ox 97.3 F 107 H 25 H 105/50 93 07/01/21 12:19 07/01/21 08:39 07/01/21 12:19 07/01/21 12:19 07/01/21 12:19 Period Temp Pulse Resp BP Sys/Ordonez Pulse Ox Last 24 Hr 96.0 F-99.0 F 87-109 16-36 84-113/43-65 77-98 Intake and Output 06/30/21 07/01/21 07/01/21 21:59 05:59 13:59 Intake Total 1760 400 480 Output Total 950 Balance 810 400 480 Weight 104.236 kg Intake & Output: Intake & Output 06/30/21 07/01/21 07/01/21 21:59 05:59 13:59 Intake Total 1760 400 480 Output Total 950 Balance 810 400 480 Weight 104.236 kg Intake: Oral 1760 400 480 Output: Void Amount 950 Other: Meal Dinner Breakfast Percent of Meal Consumed 100% 100% Feeding Ability Independent Independent Urine Appearance Clear Urine Color Bright Yellow Stool Size Moderate Stool Color Brown Stool Consistency Soft Formed # Voids 1 Exam: General: Alert, Awake, No acute Distress, obese Eyes/N/T: EOMI, Head/Neck: neck supple, CV: RRR, No murmurs, Pulm: mild b/l rales, no wheezing, nonlabored Abd: soft, nontender, +BS x4 Ext: no clubbing/cyanosis/edema Neuro: Alert, no focal deficits, moves all extremities, Skin: warm/dry OBJ DATA Labs CBC & Chem 7: 07/01/21 05:04 07/01/21 05:04 Labs: Abnormal Lab Results 07/01/21 06/30/21 06/30/21 05:04 06:10 06:10 MCHC 30.4 L Plt Count Lymph % (Auto) 13.2 L Lymph # (Auto) 1.05 L Carbon Dioxide 20 L 19 L Glucose 150 H 141 H Albumin/Globulin Ratio 0.9 L 0.9 L 06/29/21 06/29/21 06:30 06:30 MCHC Plt Count 562 H Lymph % (Auto) Lymph # (Auto) Carbon Dioxide Glucose 131 H Albumin/Globulin Ratio Meds: Medications Acetaminophen (Acetaminophen 325 Mg Tablet) 650 mg PO Q4HP PRN; Protocol PRN Reason: Pain/Fever > 100.4 Last Admin: 06/30/21 20:58 Dose: 650 mg Documented by: Hydrocodone Bitart/Acetaminophen (Hydrocodone/Apap 5/325mg Tablet) 1 tab PO Q4HP PRN; Protocol PRN Reason: Per Pain Protocol Albuterol/Ipratropium (Ipratropium/Albuterol 3 Ml Ampul.Neb) 3 ml NEB Q4HP PRN PRN Reason: Shortness Of Breath Bupropion HCl (Bupropion 150 Mg Tab.Xl.24h) 150 mg PO DAILY [facility] Last Admin: 07/01/21 09:16 Dose: 150 mg Documented by: Diagnostic Test (Pha) (Accu-Chek 1 Each Strip) 1 each FS ACHS [facility] Last Admin: 07/01/21 12:46 Dose: 1 each Documented by: Enoxaparin Sodium (Enoxaparin 40 Mg/0.4 Ml Syringe) 40 mg SQ BID [facility] Last Admin: 07/01/21 09:15 Dose: 40 mg Documented by: Fluticasone Propionate (Fluticasone Propionate [place].Keaton) 1 spray NS BIDP PRN PRN Reason: nasal congestion Guaifenesin/Codeine Phosphate (Guaifenesin/Codeine 10 Ml Udc) 10 ml PO Q8HP PRN PRN Reason: Cough Last Admin: 07/01/21 09:59 Dose: 10 ml Documented by: Hydroxyzine HCl (Hydroxyzine 25 Mg Tablet) 50 mg PO TIDP PRN PRN Reason: anxiety Insulin Glargine (Insulin Glargine, Human 1 Unit/0.01 Ml) 10 unit SQ HS [facility] Last Admin: 06/30/21 20:59 Dose: 10 units Documented by: Insulin Human Lispro (Insulin Lispro 1 Unit/0.01 Ml Unit) 0 unit SQ ACHS [facility]; Protocol Last Admin: 07/01/21 12:49 Dose: 2 units Documented by: Lactulose (Lactulose 20 Gm/30 Ml Oral.Ruth) 10 gm PO DAILYP PRN PRN Reason: Constipation Loperamide HCl (Loperamide 2 Mg Capsule) 2 mg PO PRN PRN PRN Reason: Diarrhea Lorazepam (Lorazepam 2 Mg/Ml Vial) 0.5 mg IV Q4HP PRN PRN Reason: ANXIETY/SEDATION Last Admin: 06/29/21 22:59 Dose: 0.5 mg Documented by: Metoprolol Tartrate (Metoprolol Tartrate 5 Mg/5 Ml Vial) 5 mg IV Q2HP PRN PRN Reason: Tachyarrhythmias Last Admin: 06/28/21 18:59 Dose: 5 mg Documented by: Metoprolol Tartrate (Metoprolol Tartrate 25 Mg Tablet) 25 mg PO BID [facility] Last Admin: 07/01/21 09:16 Dose: 25 mg Documented by: Ondansetron HCl (Ondansetron 4 Mg/2 Ml Vial) 4 mg IV Q4HP PRN; Protocol PRN Reason: Nausea And Vomiting Senna (Sennosides 1 Tablet) 2 tab PO HSP PRN PRN Reason: Constipation Sodium Chloride (0.9 % Sodium Chloride 10 Ml Syringe) 10 ml IV Q8 [facility] Last Admin: 07/01/21 12:32 Dose: 10 ml Documented by: A/P Narrative A/P Narrative: A: #Severe COVID-19 pneumonia w/ARDS & MRSA-pneumonia co-infection: -afebrile #Acute hypoxic respiratory failure: 2/2 above -no PE on CTA -on 5L @rest and 10L with activity #Type 2 diabetes mellitus: A1c 8.7 #Thrombocytosis: #Anion gap metabolic acidosis / lactic acidosis: Resolved #Depression/Anxiety: #Obesity: Plan: -finished vanco / Dexamethasone / Remdesivir -Oxygen supplementation wean as able -daily proning and chair position -prn ativan -lopressor 25 bid -Lantus 10qhs and SSI -DVT ppx: Lovenox SQ BID 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
[2021-07-01] MEDS: ACETAMINOPHEN 325 MG TABLET PO PRN (22:04)
[2021-07-01] MEDS: INSULIN GLARGINE, HUMAN 1 UNIT/0.01 ML SQ SCH (22:05)
[2021-07-02] MEDS: 0.9 % SODIUM CHLORIDE 10 ML SYRINGE IV SCH ×3 (04:58→21:00)
--- NOTE | 2021-07-02 07:13 | Internal Med Progress Note ---
SUBJECTIVE Subjective Patient information: Note initiated : 07/02/21 at 7:11 am Service Date, if different from initiated Date: [] Patient: Niya Piper a 36 y/o F admitted on 06/17/21 for covid +, cough, chills, headache, SOB. Chief Complaint: [] Interval history: Interval history: Ms. Piper is a 36 year old female with a history of depression and obesity who says she was diagnosed with COVID-19 at an outside facility on about 06/09/21. She presented to the [facility] ED last week with a cough and fever and was discharged to home. She returned to the ED on the day of admission with shortness of breath and hypoxia. Chest xray showed progression of bilateral pneumonia. Lab work was remarkable for a neutrophil count of 590, lactic acid 2.6, anion gap metabolic acidosis. The patient required 15 L/min oxygen via a non-rebreather mask, respiratory rate is 30-40. When I saw the patient she was proning and was able to speak comfortably in full sentences. She says she feel comfortable on oxygen supplementation while at rest. 06/18: Continues on HHFNC with high FiO2. The patient does not feel dyspnea at rest, desaturates with minimal activity. CRP decreased 10 to 6.9. Chest xray shows stable bilateral pneumonia. Added Atarax prn for anxiety. Encouraged self proning and discussed COVID-19 management. 06/19: Continues on HHFNC high FiO2, 80% but weaned to 70% this morning, hypoxia improves with proning position. Had a fever overnight and new leukocytosis today, added Zosyn and ordered MRSA nasal PCR. Procalcitonin checked but not elevated to suggest bacterial pneumonia. Upgraded to ICU status and discussed with Anaesthesia. D-dimer still elevated, CTA chest ordered. Blood glucose elevated. 06/20 patient on Vapotherm 40 liters per minute and FiO2 anywhere between 55 and 70%. Patient states she feels better and that she feels like she can take a deeper breath. She does desat with movement. Laboratory is improving. Patient is proning. She has a cough productive of yellow sputum. Occasional headache. 06/21 Patient feeling fine. Comfortable on Vapotherm. Desats with movement but recovers. Patient's FiO2 at 70%. Has occasional cough. Shortness of breath she feels is improving. 06/22 Patient still on FiO2 of around 70. Has moments of desaturation. She is doing well with proning. CRP improved from yesterday. She states she feels a little bit better every day. Occasional cough. 06/23 Oxygen requirement still fluctuating. Has been titrated down to 60% but has as high as 85% recently. Currently on 70%. She feels the same today no worse no better. Comfortable on the Vapotherm. Occasional cough. 06/24 Patient fluctuating between 58% FiO2 and 70. Patient states she feels her breathing is a little better today from yesterday. Has occasional cough still. 06/25: Afebrile. Been on high flow oxygen Vapotherm currently at 25L and FiO2@50%. Improving shortness of breath and nonproductive cough. Denies wheezing. Denies chest pain. Denies fever or chills. Denies general body weakness. 06/26: Afebrle. Been on high flow oxygen down to 25L overnight and 13L this morning. Improving shortness of breath and nonproductive cough. Denies wheezing. Denies chest pain. Denies fever or chills. Denies general body weakness. 06/27: Been on high flow oxygen anyway from 8-11L overnight and this morning. Improving shortness of breath and nonproductive cough. Denies wheezing. Denies chest pain. Denies fever or chills. Denies general body weakness. 06/28: Been on high flow oxygen anyway from 8-15L overnight and this morning. Improving shortness of breath and nonproductive cough. Denies wheezing. Denies chest pain. Denies fever or chills. Denies general body weakness. 06/29: Been on high flow oxygen 10L overnight and this morning. Heart rate in the 90s to 100s bpm, s/p initiation of metoprolol tartrate. Improving shortness of breath and nonproductive cough. Denies wheezing. Denies chest pain. Denies fever or chills. Denies general body weakness. 06/30: Been on high flow oxygen 9L/min overnight and this morning. Heart rate in the 100s to 120s bpm. Improving shortness of breath and nonproductive cough. Denies wheezing. Denies chest pain. Denies fever or chills. Denies general body weakness. 07/01: Been on high flow oxygen 5L/min overnight and this morning at rest and 10L/min while ambulates. Heart rate in the 90s to 100s bpm. Improving shortness of breath and nonproductive cough. Denies wheezing. Denies chest pain. Denies fever or chills. Denies general body weakness. 07/02 Patient feeling relatively well. Denies shortness of breath at rest but does feel some shortness of breath with exertion. She was on 3 L at rest but required 10 with exertion. Has occasional dry cough. Review of Systems: denies headache/fever/chills/nausea/vomiting/chest or abdominal pain/diarrhea. Otherwise see above. Constitutional Vitals: Vital Signs Temp Pulse Resp BP Pulse Ox 98.8 F 117 H 21 102/66 95 07/02/21 04:45 07/01/21 16:00 07/02/21 04:48 07/02/21 04:48 07/02/21 04:48 Period Temp Pulse Resp BP Sys/Ordonez Pulse Ox Last 24 Hr 97.2 F-98.8 F 107-117 83-113/48-73 88-95 Intake and Output 07/01/21 07/02/21 07/02/21 21:59 05:59 13:59 Intake Total 960 400 Output Total 1000 450 Balance -40 -50 Weight 104.417 kg Intake & Output: Intake & Output 07/01/21 07/02/21 07/02/21 21:59 05:59 13:59 Intake Total 960 400 Output Total 1000 450 Balance -40 -50 Weight 104.417 kg Intake: Oral 960 400 Output: Void Amount 1000 450 Other: Meal Dinner Percent of Meal Consumed 100% Feeding Ability Independent Urine Appearance Clear Clear Urine Color Bright Yellow Dark Yellow # Voids 2 Exam: General: Alert, Awake, No acute Distress, obese Eyes/N/T: EOMI, Head/Neck: neck supple, CV: RRR, No murmurs, Pulm: mild b/l rales improving, no wheezing, nonlabored Abd: soft, nontender, +BS x4 Ext: no clubbing/cyanosis/edema Neuro: Alert, no focal deficits, moves all extremities, Skin: warm/dry OBJ DATA Labs CBC & Chem 7: 07/01/21 05:04 07/01/21 05:04 Labs: Abnormal Lab Results 07/01/21 06/30/21 06/30/21 05:04 06:10 06:10 MCHC 30.4 L Plt Count Lymph % (Auto) 13.2 L Lymph # (Auto) 1.05 L Carbon Dioxide 20 L 19 L Glucose 150 H 141 H Albumin/Globulin Ratio 0.9 L 0.9 L 06/29/21 06/29/21 06:30 06:30 MCHC Plt Count 562 H Lymph % (Auto) Lymph # (Auto) Carbon Dioxide Glucose 131 H Albumin/Globulin Ratio Meds: Medications Acetaminophen (Acetaminophen 325 Mg Tablet) 650 mg PO Q4HP PRN; Protocol PRN Reason: Pain/Fever > 100.4 Last Admin: 07/01/21 22:04 Dose: 650 mg Documented by: Hydrocodone Bitart/Acetaminophen (Hydrocodone/Apap 5/325mg Tablet) 1 tab PO Q4HP PRN; Protocol PRN Reason: Per Pain Protocol Albuterol/Ipratropium (Ipratropium/Albuterol 3 Ml Ampul.Neb) 3 ml NEB Q4HP PRN PRN Reason: Shortness Of Breath Bupropion HCl (Bupropion 150 Mg Tab.Xl.24h) 150 mg PO DAILY [facility] Last Admin: 07/01/21 09:16 Dose: 150 mg Documented by: Diagnostic Test (Pha) (Accu-Chek 1 Each Strip) 1 each FS ACHS [facility] Last Admin: 07/01/21 21:19 Dose: 1 each Documented by: Enoxaparin Sodium (Enoxaparin 40 Mg/0.4 Ml Syringe) 40 mg SQ BID [facility] Last Admin: 07/01/21 22:04 Dose: 40 mg Documented by: Fluticasone Propionate (Fluticasone Propionate [place].Keaton) 1 spray NS BIDP PRN PRN Reason: nasal congestion Guaifenesin/Codeine Phosphate (Guaifenesin/Codeine 10 Ml Udc) 10 ml PO Q8HP PRN PRN Reason: Cough Last Admin: 07/01/21 22:04 Dose: 10 ml Documented by: Hydroxyzine HCl (Hydroxyzine 25 Mg Tablet) 50 mg PO TIDP PRN PRN Reason: anxiety Insulin Glargine (Insulin Glargine, Human 1 Unit/0.01 Ml) 10 unit SQ HS [facility] Last Admin: 07/01/21 22:05 Dose: 10 units Documented by: Insulin Human Lispro (Insulin Lispro 1 Unit/0.01 Ml Unit) 0 unit SQ ACHS [facility]; Protocol Last Admin: 07/01/21 22:05 Dose: 4 units Documented by: Lactulose (Lactulose 20 Gm/30 Ml Oral.Ruth) 10 gm PO DAILYP PRN PRN Reason: Constipation Loperamide HCl (Loperamide 2 Mg Capsule) 2 mg PO PRN PRN PRN Reason: Diarrhea Lorazepam (Lorazepam 2 Mg/Ml Vial) 0.5 mg IV Q4HP PRN PRN Reason: ANXIETY/SEDATION Last Admin: 06/29/21 22:59 Dose: 0.5 mg Documented by: Metoprolol Tartrate (Metoprolol Tartrate 5 Mg/5 Ml Vial) 5 mg IV Q2HP PRN PRN Reason: Tachyarrhythmias Last Admin: 06/28/21 18:59 Dose: 5 mg Documented by: Metoprolol Tartrate (Metoprolol Tartrate 25 Mg Tablet) 25 mg PO BID [facility] Last Admin: 07/01/21 22:04 Dose: 25 mg Documented by: Ondansetron HCl (Ondansetron 4 Mg/2 Ml Vial) 4 mg IV Q4HP PRN; Protocol PRN Reason: Nausea And Vomiting Senna (Sennosides 1 Tablet) 2 tab PO HSP PRN PRN Reason: Constipation Sodium Chloride (0.9 % Sodium Chloride 10 Ml Syringe) 10 ml IV Q8 [facility] Last Admin: 07/02/21 04:58 Dose: 10 ml Documented by: A/P Narrative A/P Narrative: A: #Severe COVID-19 pneumonia w/ARDS & MRSA-pneumonia co-infection: -afebrile #Acute hypoxic respiratory failure: 2/2 above -no PE on CTA -on 4L @rest and 10L with activity #Type 2 diabetes mellitus: A1c 8.7 #Thrombocytosis: #Anion gap metabolic acidosis / lactic acidosis: Resolved #Depression/Anxiety: #Obesity: Plan: -finished vanco / Dexamethasone / Remdesivir -Oxygen supplementation wean as able, will need O2 @ discharge -daily proning and chair position -prn ativan -lopressor 25 bid -Lantus 10qhs and SSI -DVT ppx: Lovenox SQ BID 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
[2021-07-02] MEDS: INSULIN LISPRO 1 UNIT/0.01 ML UNIT SQ SCH ×4 (08:28→20:59)
[2021-07-02] MEDS: METOPROLOL TARTRATE 25 MG TABLET PO SCH ×2 (08:28→20:57)
[2021-07-02] MEDS: ENOXAPARIN 40 MG/0.4 ML SYRINGE SQ SCH ×2 (08:28→21:00)
[2021-07-02] MEDS: buPROPion 150 MG TAB.XL.24H PO SCH (08:28)
[2021-07-02] MEDS: guaiFENesin/CODEINE 10 ML UDC PO PRN ×2 (08:51→19:07)
[2021-07-02] MEDS: ACETAMINOPHEN 325 MG TABLET PO PRN ×2 (11:54→20:58)
[2021-07-02] MEDS: INSULIN GLARGINE, HUMAN 1 UNIT/0.01 ML SQ SCH (21:00)
--- NOTE | 2021-07-03 07:15 | Internal Med Progress Note ---
SUBJECTIVE Subjective Patient information: Note initiated : 07/03/21 at 7:14 am Service Date, if different from initiated Date: [] Patient: Niya Piper a 36 y/o F admitted on 06/17/21 for covid +, cough, chills, headache, SOB. Chief Complaint: [] Interval history: Interval history: Ms. Piper is a 36 year old female with a history of depression and obesity who says she was diagnosed with COVID-19 at an outside facility on about 06/09/21. She presented to the [facility] ED last week with a cough and fever and was discharged to home. She returned to the ED on the day of admission with shortness of breath and hypoxia. Chest xray showed progression of bilateral pneumonia. Lab work was remarkable for a neutrophil count of 590, lactic acid 2.6, anion gap metabolic acidosis. The patient required 15 L/min oxygen via a non-rebreather mask, respiratory rate is 30-40. When I saw the patient she was proning and was able to speak comfortably in full sentences. She says she feel comfortable on oxygen supplementation while at rest. 06/18: Continues on HHFNC with high FiO2. The patient does not feel dyspnea at rest, desaturates with minimal activity. CRP decreased 10 to 6.9. Chest xray shows stable bilateral pneumonia. Added Atarax prn for anxiety. Encouraged self proning and discussed COVID-19 management. 06/19: Continues on HHFNC high FiO2, 80% but weaned to 70% this morning, hypoxia improves with proning position. Had a fever overnight and new leukocytosis today, added Zosyn and ordered MRSA nasal PCR. Procalcitonin checked but not elevated to suggest bacterial pneumonia. Upgraded to ICU status and discussed with Anaesthesia. D-dimer still elevated, CTA chest ordered. Blood glucose elevated. 06/20 patient on Vapotherm 40 liters per minute and FiO2 anywhere between 55 and 70%. Patient states she feels better and that she feels like she can take a deeper breath. She does desat with movement. Laboratory is improving. Patient is proning. She has a cough productive of yellow sputum. Occasional headache. 06/21 Patient feeling fine. Comfortable on Vapotherm. Desats with movement but recovers. Patient's FiO2 at 70%. Has occasional cough. Shortness of breath she feels is improving. 06/22 Patient still on FiO2 of around 70. Has moments of desaturation. She is doing well with proning. CRP improved from yesterday. She states she feels a little bit better every day. Occasional cough. 06/23 Oxygen requirement still fluctuating. Has been titrated down to 60% but has as high as 85% recently. Currently on 70%. She feels the same today no worse no better. Comfortable on the Vapotherm. Occasional cough. 06/24 Patient fluctuating between 58% FiO2 and 70. Patient states she feels her breathing is a little better today from yesterday. Has occasional cough still. 06/25: Afebrile. Been on high flow oxygen Vapotherm currently at 25L and FiO2@50%. Improving shortness of breath and nonproductive cough. Denies wheezing. Denies chest pain. Denies fever or chills. Denies general body weakness. 06/26: Afebrle. Been on high flow oxygen down to 25L overnight and 13L this morning. Improving shortness of breath and nonproductive cough. Denies wheezing. Denies chest pain. Denies fever or chills. Denies general body weakness. 06/27: Been on high flow oxygen anyway from 8-11L overnight and this morning. Improving shortness of breath and nonproductive cough. Denies wheezing. Denies chest pain. Denies fever or chills. Denies general body weakness. 06/28: Been on high flow oxygen anyway from 8-15L overnight and this morning. Improving shortness of breath and nonproductive cough. Denies wheezing. Denies chest pain. Denies fever or chills. Denies general body weakness. 06/29: Been on high flow oxygen 10L overnight and this morning. Heart rate in the 90s to 100s bpm, s/p initiation of metoprolol tartrate. Improving shortness of breath and nonproductive cough. Denies wheezing. Denies chest pain. Denies fever or chills. Denies general body weakness. 06/30: Been on high flow oxygen 9L/min overnight and this morning. Heart rate in the 100s to 120s bpm. Improving shortness of breath and nonproductive cough. Denies wheezing. Denies chest pain. Denies fever or chills. Denies general body weakness. 07/01: Been on high flow oxygen 5L/min overnight and this morning at rest and 10L/min while ambulates. Heart rate in the 90s to 100s bpm. Improving shortness of breath and nonproductive cough. Denies wheezing. Denies chest pain. Denies fever or chills. Denies general body weakness. 07/02 Patient feeling relatively well. Denies shortness of breath at rest but does feel some shortness of breath with exertion. She was on 3 L at rest but required 10 with exertion. Has occasional dry cough. Review of Systems: denies headache/fever/chills/nausea/vomiting/chest or abdominal pain/diarrhea. Otherwise see above. Constitutional Vitals: Vital Signs Temp Pulse Resp BP Pulse Ox 97.6 F 117 H 29 H 96/61 92 07/03/21 04:35 07/01/21 16:00 07/03/21 04:34 07/03/21 04:34 07/03/21 04:34 Period Temp Pulse Resp BP Sys/Ordonez Pulse Ox Last 24 Hr 96.9 F-97.7 F 22-38 88-116/54-76 90-97 Intake and Output 07/02/21 07/03/21 07/03/21 21:59 05:59 13:59 Intake Total 1200 400 Output Total 1000 600 Balance 200 -200 Weight 104.281 kg Intake & Output: Intake & Output 07/02/21 07/03/21 07/03/21 21:59 05:59 13:59 Intake Total 1200 400 Output Total 1000 600 Balance 200 -200 Weight 104.281 kg Intake: Oral 1200 400 Output: Void Amount 600 Urine/Stool Mix 1000 Other: Meal Dinner Percent of Meal Consumed 100% Feeding Ability Independent Urine Appearance Clear Urine Color Bright Yellow # Voids 1 Exam: General: Alert, Awake, No acute Distress, obese Eyes/N/T: EOMI, Head/Neck: neck supple, CV: RRR, No murmurs, Pulm: mild b/l rales improving, no wheezing, nonlabored Abd: soft, nontender, +BS x4 Ext: no clubbing/cyanosis/edema Neuro: Alert, no focal deficits, moves all extremities, Skin: warm/dry OBJ DATA Labs CBC & Chem 7: 07/01/21 05:04 07/01/21 05:04 Labs: Abnormal Lab Results 07/01/21 06/30/21 06/30/21 05:04 06:10 06:10 MCHC 30.4 L Lymph % (Auto) 13.2 L Lymph # (Auto) 1.05 L Carbon Dioxide 20 L 19 L Glucose 150 H 141 H Albumin/Globulin Ratio 0.9 L 0.9 L Meds: Medications Acetaminophen (Acetaminophen 325 Mg Tablet) 650 mg PO Q4HP PRN; Protocol PRN Reason: Pain/Fever > 100.4 Last Admin: 07/02/21 20:58 Dose: 650 mg Documented by: Hydrocodone Bitart/Acetaminophen (Hydrocodone/Apap 5/325mg Tablet) 1 tab PO Q4HP PRN; Protocol PRN Reason: Per Pain Protocol Albuterol/Ipratropium (Ipratropium/Albuterol 3 Ml Ampul.Neb) 3 ml NEB Q4HP PRN PRN Reason: Shortness Of Breath Bupropion HCl (Bupropion 150 Mg Tab.Xl.24h) 150 mg PO DAILY [facility] Last Admin: 07/02/21 08:28 Dose: 150 mg Documented by: Diagnostic Test (Pha) (Accu-Chek 1 Each Strip) 1 each FS [facility] Last Admin: 07/02/21 20:50 Dose: 1 each Documented by: Enoxaparin Sodium (Enoxaparin 40 Mg/0.4 Ml Syringe) 40 mg SQ BID [facility] Last Admin: 07/02/21 21:00 Dose: 40 mg Documented by: Fluticasone Propionate (Fluticasone Propionate [place]) 1 spray NS BIDP PRN PRN Reason: nasal congestion Guaifenesin/Codeine Phosphate (Guaifenesin/Codeine 10 Ml Udc) 10 ml PO Q8HP PRN PRN Reason: Cough Last Admin: 07/02/21 19:07 Dose: 10 ml Documented by: Hydroxyzine HCl (Hydroxyzine 25 Mg Tablet) 50 mg PO TIDP PRN PRN Reason: anxiety Insulin Glargine (Insulin Glargine, Human 1 Unit/0.01 Ml) 10 unit SQ HS [facility] Last Admin: 07/02/21 21:00 Dose: 10 units Documented by: Insulin Human Lispro (Insulin Lispro 1 Unit/0.01 Ml Unit) 0 unit SQ [facility]; Protocol Last Admin: 07/02/21 20:59 Dose: 4 units Documented by: Lactulose (Lactulose 20 Gm/30 Ml Oral.Ruth) 10 gm PO DAILYP PRN PRN Reason: Constipation Loperamide HCl (Loperamide 2 Mg Capsule) 2 mg PO PRN PRN PRN Reason: Diarrhea Last Admin: 07/02/21 19:07 Dose: 2 mg Documented by: Lorazepam (Lorazepam 2 Mg/Ml Vial) 0.5 mg IV Q4HP PRN PRN Reason: ANXIETY/SEDATION Last Admin: 06/29/21 22:59 Dose: 0.5 mg Documented by: Metoprolol Tartrate (Metoprolol Tartrate 5 Mg/5 Ml Vial) 5 mg IV Q2HP PRN PRN Reason: Tachyarrhythmias Last Admin: 06/28/21 18:59 Dose: 5 mg Documented by: Metoprolol Tartrate (Metoprolol Tartrate 25 Mg Tablet) 25 mg PO BID [facility] Last Admin: 07/02/21 20:57 Dose: 25 mg Documented by: Ondansetron HCl (Ondansetron 4 Mg/2 Ml Vial) 4 mg IV Q4HP PRN; Protocol PRN Reason: Nausea And Vomiting Senna (Sennosides 1 Tablet) 2 tab PO HSP PRN PRN Reason: Constipation Sodium Chloride (0.9 % Sodium Chloride 10 Ml Syringe) 10 ml IV Q8 [facility] Last Admin: 07/02/21 21:00 Dose: 10 ml Documented by: A/P Narrative A/P Narrative: A: #Severe COVID-19 pneumonia w/ARDS & MRSA-pneumonia co-infection: -afebrile #Acute hypoxic respiratory failure: 2/2 above -no PE on CTA -down to 2L @rest and L with activity #Type 2 diabetes mellitus: A1c 8.7 #Thrombocytosis: #Anion gap metabolic acidosis / lactic acidosis: Resolved #Depression/Anxiety: #Obesity: Plan: -finished vanco / Dexamethasone / Remdesivir -Oxygen supplementation wean as able, will need O2 @ discharge -daily proning and chair position -prn ativan -lopressor 25 bid -Lantus 10qhs and SSI -DVT ppx: Lovenox SQ BID 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
[2021-07-03] MEDS: 0.9 % SODIUM CHLORIDE 10 ML SYRINGE IV SCH (07:45)
[2021-07-03] MEDS: INSULIN LISPRO 1 UNIT/0.01 ML UNIT SQ SCH ×2 (07:45→12:12)
[2021-07-03] MEDS: ENOXAPARIN 40 MG/0.4 ML SYRINGE SQ SCH (08:56)
[2021-07-03] MEDS: guaiFENesin/CODEINE 10 ML UDC PO PRN (08:57)
[2021-07-03] MEDS: buPROPion 150 MG TAB.XL.24H PO SCH (08:57)
[2021-07-03] MEDS: METOPROLOL TARTRATE 25 MG TABLET PO SCH (08:57)
--- NOTE | 2021-07-03 09:07 | Discharge Summary ---
Discharge Provider Provider Patient information: Note initiated : 07/03/21 at 9:05 am Service Date, if different from initiated Date: [] Patient: Niya Piper 36 y/o F admitted on 06/17/21 for covid +, cough, chills, headache, SOB. Chief Complaint: [] Date of admission: 06/17/21 14:49 Discharge date: 07/03/21 Primary care physician: Wild Macedo Consults: 06/17/21 Consult to Physician [CONS] Stat Comment: Consulting Provider: Adeel Toscano Reason For Exam: Physician to Consult Discharge Meds Discharge Medications Home Medications codeine-guaifenesin 5 ml PO Q8HP PRN #237 ml 06/13/21 [Rx Confirmed 06/17/21 Last Taken Unknown] Janumet XR 1 tab PO DAILY 06/17/21 [History Confirmed 06/17/21 Last Taken Unknown] bupropion HCl 150 mg PO DAILY 06/17/21 [History Confirmed 06/17/21 Last Taken Unknown] progesterone micronized 200 mg PO DAILY 06/17/21 [History Confirmed 06/17/21 Last Taken Unknown] COURSE Hospital Course Hospital course: Interval history: Ms. Piper is a 36 year old female with a history of depression and obesity who says she was diagnosed with COVID-19 at an outside facility on about 06/09/21. She presented to the [facility] ED last week with a cough and fever and was discharged to home. She returned to the ED on the day of admission with shortness of breath and hypoxia. Chest xray showed progression of bilateral pneumonia. Lab work was remarkable for a neutrophil count of 590, lactic acid 2.6, anion gap metabolic acidosis. The patient required 15 L/min oxygen via a non-rebreather mask, respiratory rate is 30-40. When I saw the patient she was proning and was able to speak comfortably in full sentences. She says she feel comfortable on oxygen supplementation while at rest. 06/18: Continues on HHFNC with high FiO2. The patient does not feel dyspnea at rest, desaturates with minimal activity. CRP decreased 10 to 6.9. Chest xray shows stable bilateral pneumonia. Added Atarax prn for anxiety. Encouraged self proning and discussed COVID-19 management. 06/19: Continues on HHFNC high FiO2, 80% but weaned to 70% this morning, hypoxia improves with proning position. Had a fever overnight and new leukocytosis today, added Zosyn and ordered MRSA nasal PCR. Procalcitonin checked but not elevated to suggest bacterial pneumonia. Upgraded to ICU status and discussed with Anaesthesia. D-dimer still elevated, CTA chest ordered. Blood glucose elevated. 06/20 patient on Vapotherm 40 liters per minute and FiO2 anywhere between 55 and 70%. Patient states she feels better and that she feels like she can take a deeper breath. She does desat with movement. Laboratory is improving. Patient is proning. She has a cough productive of yellow sputum. Occasional headache. 06/21 Patient feeling fine. Comfortable on Vapotherm. Desats with movement but recovers. Patient's FiO2 at 70%. Has occasional cough. Shortness of breath she feels is improving. 06/22 Patient still on FiO2 of around 70. Has moments of desaturation. She is doing well with proning. CRP improved from yesterday. She states she feels a little bit better every day. Occasional cough. 06/23 Oxygen requirement still fluctuating. Has been titrated down to 60% but has as high as 85% recently. Currently on 70%. She feels the same today no worse no better. Comfortable on the Vapotherm. Occasional cough. 06/24 Patient fluctuating between 58% FiO2 and 70. Patient states she feels her breathing is a little better today from yesterday. Has occasional cough still. 06/25: Afebrile. Been on high flow oxygen Vapotherm currently at 25L and FiO2@50%. Improving shortness of breath and nonproductive cough. Denies wheezing. Denies chest pain. Denies fever or chills. Denies general body weakness. 06/26: Afebrle. Been on high flow oxygen down to 25L overnight and 13L this morning. Improving shortness of breath and nonproductive cough. Denies wheezing. Denies chest pain. Denies fever or chills. Denies general body weakness. 06/27: Been on high flow oxygen anyway from 8-11L overnight and this morning. Improving shortness of breath and nonproductive cough. Denies wheezing. Denies chest pain. Denies fever or chills. Denies general body weakness. 06/28: Been on high flow oxygen anyway from 8-15L overnight and this morning. Improving shortness of breath and nonproductive cough. Denies wheezing. Denies chest pain. Denies fever or chills. Denies general body weakness. 06/29: Been on high flow oxygen 10L overnight and this morning. Heart rate in the 90s to 100s bpm, s/p initiation of metoprolol tartrate. Improving shortness of breath and nonproductive cough. Denies wheezing. Denies chest pain. Denies fever or chills. Denies general body weakness. 06/30: Been on high flow oxygen 9L/min overnight and this morning. Heart rate in the 100s to 120s bpm. Improving shortness of breath and nonproductive cough. Denies wheezing. Denies chest pain. Denies fever or chills. Denies general body weakness. 07/01: Been on high flow oxygen 5L/min overnight and this morning at rest and 10L/min while ambulates. Heart rate in the 90s to 100s bpm. Improving shortness of breath and nonproductive cough. Denies wheezing. Denies chest pain. Denies fever or chills. Denies general body weakness. 07/02 Patient feeling relatively well. Denies shortness of breath at rest but does feel some shortness of breath with exertion. She was on 3 L at rest but required 10 with exertion. Has occasional dry cough. 07/03 Patient continues to feel better. Patient down to 2 L at rest and only required 5 L with exertion. Able for discharge to home with oxygen. A: #Severe COVID-19 pneumonia w/ARDS & MRSA-pneumonia co-infection: #Acute hypoxic respiratory failure: 2/2 above -no PE on CTA #Type 2 diabetes mellitus: A1c 8.7 #Thrombocytosis: #Anion gap metabolic acidosis / lactic acidosis: Resolved #Depression/Anxiety: #Obesity: Discharge diagnosis: Severe Covid pneumonia with cards and MRSA pneumonia acute hypoxic respirat Secondary discharge diagnosis: Diabetes obesity depression anxiety Time Spent with Patient Time attestation: Total time spent providing and/or coordinating discharge services: Time spent: Greater than 30 minutes EXAM Constitutional Vitals: Temp Pulse Resp BP Pulse Ox 96.9 F L 117 H 31 H 107/62 94 07/03/21 08:13 07/01/21 16:00 07/03/21 08:13 07/03/21 08:13 07/03/21 08:13 Discharge Plan Patient/Caregiver Discharge Instructions Activity: increase activity as tolerated Diet: Consistent Carbohydrate Instructions: Type 2 Diabetes in Adults: New Diagnosis (GEN), Using Oxygen at Home (GEN), Meal Planning with Diabetes Exchanges (GEN), COVID-19 (Coronavirus Disease 2019)(GEN) Activity Restrictions/Additional Instructions: Patient will require home oxygen for Covid pneumonia. Instructed patient to obtain a pulse oximeter monitor pulse ox at home. Prescriptions: Continued codeine-guaifenesin 10-100 mg/5 mL liquid 5 ml PO Q8HP PRN (Reason: cough) Qty: 237 RF: 0 progesterone micronized 200 mg capsule 200 mg PO DAILY RF: 0 bupropion HCl 150 mg tablet extended release 24 hr 150 mg PO DAILY RF: 0 Janumet XR 50-1,000 mg tablet, ER multiphase 24 hr 1 tab PO DAILY RF: 0 Discontinued norgestimate-ethinyl estradiol [Sprintec (28)] 0.25-35 mg-mcg tablet 1 tab PO DAILY RF: 0 Follow Up Plan Follow up with: Wild Macedo MD [Primary Care Provider] - Patient Disposition: Home, Self-Care Prognosis: Fair Overall status at discharge: patient is progressing back to baseline Discharge Orders: Discharge Order (Routine); Ordered 07/03/21 Ordered By: Arnaldo Solorzano [facility] VTE Deep Vein Thrombosis/Pulmonary Embolism Present on Admission: No
[2021-07-03] MEDS: ACETAMINOPHEN 325 MG TABLET PO PRN (12:12)
--- NOTE | 2021-07-04 11:23 | EKG ---
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
--- NOTE | 2021-07-08 12:25 | EKG ---
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
== END 2021-07-03 13:25 | disposition home health service (06) | DRG 177 ==
LOC: ED 10:22 → ICU 14:49
PROVIDERS: ADMIT Internal Medicine; ATTEND Internal Medicine